=== PATIENT | male | born 1950 | race Caucasian/White ===

== ENCOUNTER 2016-12-07 13:54 | Inpatient (IN) | payer SELFPAY ==
[2016-12-07] VITALS (13 sets, daily range): BP systolic 142–227; BP diastolic 76–115; PULSE 84–105; RESP 12–21; TEMP 97.9–98.4; O2SAT 95–100
[~2016-12-07] VITALS: Ht 177.8 cm; Wt 83.6 kg
[~2016-12-07 13:54] MED LIST: CHLO10 PO; HYDR25TA35 PO; KCL10C PO; LISI-363 PO; TAB-TAB PO
[2016-12-07] MEDS ORDERED: SODIUM CHLOR 0.9% 1000 ML INJ 1,000 ML IV ONE (14:10)
[2016-12-07] MEDS ORDERED: SODIUM CHLORIDE 0.9% FLUSH 10 ML FLUSH IVF PRN (14:15)
--- NOTE | 2016-12-07 14:45 | PD ---
HPI Chief Complaint: Seizure Time Seen by Provider: 14:45 Travel History International Travel<30 days: No Contact w/Intl Traveler<30days: No Traveled to known affect area: No History of Present Illness HPI 65 year old male with history of hypertension and seizures in the past due to alcohol withdrawal and/or electrolyte abnormality presents to the ED for evaluation of seizure, witnessed by his . Patient is in a postictal state currently and overall a poor historian. The states that they went to [employer] for lunch and the patient was kind of "in and out of it" all morning. While eating lunch, the patient was in "a daze." The states she had to nudge him to get him to leave and he was delayed in responding to her questions. He did however insist on driving but she would not let him. On the way home, the patient had a seizure in the front seat of the car. The turned immediately to come to the hospital. Upon arrival, the patient is no longer seizing but appears postictal. He denies any pain.. No shortness of breath. No recent illnesses, fever, or chills. Patient does have a reported history of alcohol abuse, however the patient denies consuming alcohol for an extended amount of time. The verbalizes uncertainty in regards to his honesty about this. Patient has no other symptoms to report this time. PFSH Past Medical History Asthma: Yes ( A CHILD) Autoimmune Disease: No Heart Rhythm Problems: No Cardiovascular Problems: No High Cholesterol: Yes Chest Pain: No Congestive Heart Failure: Yes COPD: No Cerebrovascular Accident: No Diabetes: No Diminished Hearing: No Endocrine: No Gastrointestinal Disorders: Yes (hx of GI abelb-oxfutyu-rpssc tear x2) Gout: Yes Genitourinary: No Headaches: No Hypertension: Yes Immune Disorder: No Musculoskeletal: No Neurologic: Yes Reproductive: No Respiratory: Yes Migraines: No Seizures: Yes Sleep Apnea: No Thyroid Disease: No Tetanus Vaccination: > 5 Years Past Surgical History Abdominal Surgery: Yes Cardiac Surgery: No Ear Surgery: No Endocrine Surgery: No Eye Surgery: No Genitourinary Surgery: No Gynecologic Surgery: No Neurologic Surgery: No Oral Surgery: Yes Thoracic Surgery: No Other Surgery: Yes Social History Alcohol Use: Yes ("NOT EVERY DAY") Tobacco Use: Yes (1 PPD) Substance Use: No Allergies-Medications (Allergen,Severity, Reaction): Coded Allergies: Penicillin (Verified Allergy, Mild, PASS OUT, 12/07/16) Reported Meds & Prescriptions Reported Meds & Active Scripts Active Review of Systems ROS Limitations: Altered Mental Status Except as stated in HPI: all other systems reviewed are Neg Physical Exam Exam Limitations: Altered Mental Status Narrative GENERAL: Well-nourished male patient, lying in bed, in no acute distress. SKIN: Focused skin assessment warm/dry. HEAD: Atraumatic. Normocephalic. EYES: Pupils equal and round. EOMI. No scleral icterus. No injection or drainage. ENT: No nasal bleeding or discharge. Mucous membranes pink and moist. NECK: Trachea midline. No JVD. CARDIOVASCULAR: Tachycardic rate and rhythm. No murmur appreciated. RESPIRATORY: No accessory muscle use. Clear to auscultation. Breath sounds equal bilaterally. GASTROINTESTINAL: Abdomen soft, non-tender, nondistended. Hepatic and splenic margins not palpable. MUSCULOSKELETAL: No obvious deformities. No clubbing. No cyanosis. No edema. NEUROLOGICAL: Patient is awake. He does seem disoriented and confused, however when asked directly He is oriented 3. He has no obvious cranial nerve deficits. No pronator drift. Equal strength bilateral extremities. Motor grossly within normal limits. Normal speech. Data Data Last Documented VS Vital Signs Date Time Temp Pulse Resp B/P Pulse Ox O2 Delivery O2 Flow Rate FiO2 12/07/16 15:48 104 20 190/90 96 12/07/16 14:09 97.9 12/07/16 14:09 Room Air Orders Complete Blood Count With Diff (12/07/16 14:10) Alcohol (Ethanol) (12/07/16 14:10) Drug Screen, Random Urine (12/07/16 14:10) Electrocardiogram (12/07/16 ) Blood Glucose (12/07/16 14:10) Ecg Monitoring (12/07/16 14:10) Iv Access Insert/Monitor (12/07/16 14:10) Oximetry (12/07/16 14:10) Comprehensive Metabolic Panel (12/07/16 14:10) Sodium Chlor 0.9% 1000 Ml Inj (Ns 1000 M (12/07/16 14:10) Sodium Chloride 0.9% Flush (Ns Flush) (12/07/16 14:15) Urinalysis - C+S If Indicated (12/07/16 14:10) Magnesium (Mg) (12/07/16 14:10) Ammonia (12/07/16 14:10) Ct Brain W/O Iv Contrast(Rout) (12/07/16 ) Hydralazine Inj (Apresoline Inj) (12/07/16 15:00) Troponin I (12/07/16 16:31) Electrocardiogram (12/07/16 16:31) Ckmb (Isoenzyme) Profile (12/07/16 16:31) Hydralazine Inj (Apresoline Inj) (12/07/16 17:00) Clonidine (Catapres) (12/07/16 17:00) CKMB (12/07/16 14:10) CKMB% (12/07/16 14:10) Labs Laboratory Tests Test 12/07/16 12/07/16 14:10 15:40 White Blood Count 9.8 TH/MM3 Red Blood Count 4.23 MIL/MM3 Hemoglobin 14.7 GM/DL Hematocrit 44.7 % Mean Corpuscular Volume 105.6 FL Mean Corpuscular Hemoglobin 34.7 PG Mean Corpuscular Hemoglobin 32.9 % Concent Red Cell Distribution Width 15.2 % Platelet Count 204 TH/MM3 Mean Platelet Volume 10.2 FL Neutrophils (%) (Auto) 43.8 % Lymphocytes (%) (Auto) 41.8 % Monocytes (%) (Auto) 10.7 % Eosinophils (%) (Auto) 3.1 % Basophils (%) (Auto) 0.6 % Neutrophils # (Auto) 4.3 TH/MM3 Lymphocytes # (Auto) 4.1 TH/MM3 Monocytes # (Auto) 1.0 TH/MM3 Eosinophils # (Auto) 0.3 TH/MM3 Basophils # (Auto) 0.1 TH/MM3 CBC Comment DIFF FINAL Differential Comment Sodium Level 138 MEQ/L Potassium Level 3.5 MEQ/L Chloride Level 98 MEQ/L Carbon Dioxide Level 20.5 MEQ/L Anion Gap 20 MEQ/L Blood Urea Nitrogen 6 MG/DL Creatinine 1.31 MG/DL Estimat Glomerular Filtration 55 ML/MIN Rate Random Glucose 131 MG/DL Calcium Level 10.8 MG/DL Magnesium Level 1.5 MG/DL Total Bilirubin 0.9 MG/DL Aspartate Amino Transf 54 U/L (AST/SGOT) Alanine Aminotransferase 39 U/L (ALT/SGPT) Alkaline Phosphatase 93 U/L Ammonia 91 MCMOL/L Total Creatine Kinase 193 U/L Creatine Kinase MB 2.1 NG/ML Troponin I LESS THAN 0.02 NG/ML Total Protein 9.0 GM/DL Albumin 4.4 GM/DL Ethyl Alcohol Level 18 MG/DL Urine Color YELLOW Urine Turbidity CLEAR Urine pH 6.5 Urine Specific [place] 1.009 Urine Protein 30 mg/dL Urine Glucose (UA) TRACE mg/dL Urine Ketones NEG mg/dL Urine Occult Blood NEG Urine Nitrite NEG Urine Bilirubin NEG Urine Urobilinogen LESS THAN 2.0 MG/DL Urine Leukocyte Esterase NEG Urine RBC LESS THAN 1 /hpf Urine WBC 1 /hpf Urine Squamous Epithelial 1 /hpf Cells Urine Hyaline Casts 7 /lpf Microscopic Urinalysis Comment CULT NOT INDICATED Urine Opiates Screen NEG Urine Barbiturates Screen NEG Urine Amphetamines Screen NEG Urine Benzodiazepines Screen NEG Urine Cocaine Screen NEG Urine Cannabinoids Screen NEG MDM Medical Decision Making Medical Screen Exam Complete: Yes Emergency Medical Condition: Yes Medical Record Reviewed: Yes Differential Diagnosis Withdrawal seizure versus electrolyte abnormality versus intracranial etiology versus hepatic encephalopathy Narrative Course 65-year-old male presents to emergency department for evaluation following a seizure. Patient is in postictal state and overall a poor historian. His responses delayed however he is oriented 3. Neuro exam is nonfocal. Patient is tachycardic and hypertensive. EKG is without acute ST elevation or depression. CBC is without acute concern. CMP is without acute concern. Magnesium is 1.5. Ammonia is elevated at 91. Troponin is less than 0.02. Toxicology is negative. EtOH is 18 which arises questions to the patient's insistence that he has not consumed alcohol. I confronted the patient on this and he does admit to having 3 drinks last evening and 3 drinks the night before. The patient remains hypertensive despite hydralazine 2. He is given clonidine very labetalol as ordered. He does remain oriented however slow to respond and his is concerned that he is "not himself." I discussed the patient with EVIN Mcgarry. Patient will be admitted observation at this time to the [facility]. 1648 patient reports worsening indigestion. EKG is repeated with no acute abnormality identified. Patient is given GI cocktail as well as IV Protonix. 1734 Pt remains hypertensive despite multiple attempts to reduce. I discussed the patient with my attending, he will be placed on a Cardene drip and care will be upgraded to a CIC bed. I have updated EVIN Mcgarry in regards to this. Diagnosis Primary Impression: Seizure Additional Impressions: Alcohol abuse Hypertensive urgency Admitting Information Admitting Physician Requests: Admit Condition: Stable Hannah Andre Dec 07, 2016 14:45
[2016-12-07 14:59] LABS: AUTOMATED NEUTROPHIL # 4.3 TH/MM3 (1.8-7.7); BASOPHIL # 0.1 TH/MM3 (0-0.2); BASOPHIL % 0.6 % (0.0-2.0); EOSINOPHIL # 0.3 TH/MM3 (0-0.4); EOSINOPHIL % 3.1 % (0.0-4.0); HEMATOCRIT 44.7 % (39.0-51.0); HEMO FLAGS DIFF FINAL; LYMPH % 41.8 % (9.0-44.0); LYMPHOCYTE # 4.1 TH/MM3 (1.0-4.8); MEAN CELL VOLUME 105.6 FL (80.0-100.0); MEAN CORPUSCULAR HEMOGLOBIN 34.7 PG (27.0-34.0); MEAN CORPUSCULAR HGB CONC 32.9 % (32.0-36.0); MONO % 10.7 % (0.0-8.0); NEUT % 43.8 % (16.0-70.0); PLATELET COUNT 204 TH/MM3 (150-450); RED BLOOD COUNT 4.23 MIL/MM3 (4.50-5.90); RED CELL DISTRIBUTION WIDTH 15.2 % (11.6-17.2); WHITE BLOOD COUNT 9.8 TH/MM3 (4.0-11.0)
[2016-12-07] MEDS ORDERED: hydrALAZINE HCL 20 MG/ML VIAL IV PUSH ONE ×2 (15:00→17:00)
[2016-12-07 15:21] LABS: ALKALINE PHOSPHATASE 93 U/L (45-117); TOTAL BILIRUBIN ADULT 0.9 MG/DL (0.2-1.0)
[2016-12-07 15:35] LABS: ALT (GPT) 39 U/L (12-78); ANION GAP 20 MEQ/L (5-15); AST (GOT) 54 U/L (15-37); BICARBONATE 20.5 MEQ/L (21.0-32.0); BLOOD UREA NITROGEN 6 MG/DL (7-18); CHLORIDE 98 MEQ/L (98-107); GLOMERULAR FILTRATION RATE 55 ML/MIN (>89); MAGNESIUM 1.5 MG/DL (1.5-2.5); POTASSIUM 3.5 MEQ/L (3.5-5.1); SODIUM (NA) 138 MEQ/L (136-145)
--- NOTE | 2016-12-07 15:39 | RADRPT ---
EXAM DATE/TIME: 12/07/2016 15:25 [facility] COMPARISON: CT BRAIN W/O CONTRAST, January 06, 2015, 8:45. INDICATIONS : Altered mental status, possible seizure today. RADIATION DOSE: 56.35 CTDIvol (mGy) MEDICAL HISTORY : Seizures. Congestive heart failure. Hypertension. SURGICAL HISTORY : None. ENCOUNTER: Initial ACUITY: 1 day PAIN SCALE: 0/10 LOCATION: Bilateral head TECHNIQUE: Multiple contiguous axial images were obtained of the head. Using automated exposure control and adj ustment of the mA and/or kV according to patient size, radiation dose was kept as low as reasonably a chievable to obtain optimal diagnostic quality images. FINDINGS: CEREBRUM: Redemonstration of moderate periventricular white matter hypodensities consistent with ischemic white matter demyelination. The ventricles are normal for age. No evidence of midline shift, mass lesion, hemorrhage or acute infarction. No extra-axial fluid collections are seen. POSTERIOR FOSSA: The cerebellum and brainstem are intact. The 4th ventricle is midline. The cerebellopontine angle i s unremarkable. EXTRACRANIAL: The visualized portion of the orbits is intact. SKULL: The calvaria is intact. No evidence of skull fracture. CONCLUSION: 1. Redemonstration moderate periventricular ischemic white matter demyelination consistent with small vessel disease. 2. No acute intracranial abnormality. Marco Hyatt MD on December 07, 2016 at 15:34 Board Certified Radiologist. This report was verified electronically.
[2016-12-07 15:56] LABS: BLOOD, URINE NEG (NEG); COMMENT (UR) CULT NOT INDICATED; CULTURE IF INDICATED CULT NOT INDICATED; GLUCOSE,URINE TRACE mg/dL (NEG); HYALINE CAST, URINE 7 /lpf (RARE); KETONE, URINE NEG (NEG); NITRITE,URINE NEG (NEG); PH, URINE 6.5 (5.0-8.5); SQUAMOUS EPITHELIAL CELL URINE 1 /hpf (0-5); URINE COLOR YELLOW (YELLW/STRAW)
[2016-12-07 16:55] LABS: CREATINE KINASE 193 U/L (39-308)
[2016-12-07 16:55] LABS: AMPHETAMINE, URINE NEG (NEG); BARBITURATES, URINE NEG (NEG); COCAINE, URINE NEG (NEG)
[2016-12-07] MEDS ORDERED: cloNIDine HCL 0.1 MG TAB PO ONE (17:00)
[2016-12-07 17:08] LABS: CKMB 2.1 NG/ML (0.5-3.6)
[2016-12-07] MEDS ORDERED: ALUMINUM/MAGNESIUM/SIMETH 30 ML CUP PO ONE (17:15)
[2016-12-07] MEDS ORDERED: LIDOCAINE VISCOUS 2% SOLN 15 ML UDC PO ONE (17:15)
[2016-12-07] MEDS ORDERED: LABETALOL HCL 100 MG/20 ML VIAL IV PUSH ONE (17:15)
[2016-12-07] MEDS ORDERED: PANTOPRAZOLE SODIUM 40 MG VIAL IVP ONE (17:15)
[2016-12-07] MEDS ORDERED: SODIUM CHLOR 0.9% 1000 ML INJ 1,000 ML IV SCH (17:39)
[2016-12-07] MEDS ORDERED: LORazepam 2 MG/ML VIAL ONE (17:41)
[2016-12-07] MEDS ORDERED: SENNOSIDES 8.6 MG TAB PO PRN (17:45)
[2016-12-07] MEDS ORDERED: LORazepam 2 MG/ML VIAL IV PUSH PRN (17:45)
[2016-12-07] MEDS ORDERED: LACTULOSE SYRUP 20 GM/30 ML CUP PO PRN (17:45)
[2016-12-07] MEDS ORDERED: LORazepam 2 MG/ML VIAL IV PUSH ONE (17:45)
[2016-12-07] MEDS ORDERED: MAGNESIUM HYDROXIDE SUSP 30 ML CUP PO PRN (17:45)
[2016-12-07] MEDS ORDERED: BISACODYL 10 MG SUPP RECTAL PRN (17:45)
[2016-12-07] MEDS ORDERED: niCARdipine INJ 25 MG in SODIUM CHLOR 0.9% 250 ML INJ 250 ML IV ONE (17:45)
[2016-12-07] MEDS ORDERED: NALOXONE HCL 0.4 MG/ML AMP IV PRN (17:45)
[2016-12-07] MEDS ORDERED: FLUMAZENIL 0.5 MG/5 ML VIAL IV PUSH PRN (18:00)
[2016-12-07] MEDS ORDERED: LORazepam 1 MG TAB PO PRN (18:00)
[2016-12-07] MEDS ORDERED: LORazepam 2 MG TAB PO PRN (18:00)
--- NOTE | 2016-12-07 18:08 | RADRPT ---
EXAM DATE/TIME: 12/07/2016 17:59 [facility] COMPARISON: CHEST SINGLE AP, January 06, 2015, 9:27. INDICATIONS : Chest pain, possible seizure. MEDICAL HISTORY : Seizures. Congestive heart failure. Hypertension. SURGICAL HISTORY : None. ENCOUNTER: Initial ACUITY: 1 day PAIN SCORE: Non-responsive. LOCATION: Bilateral chest FINDINGS: No infiltrate, effusion or pneumothorax demonstrated. Heart size stable compared to normal limits. Th oracic aorta is mildly tortuous. Left rib fractures are again seen. CONCLUSION: No evidence of acute cardiopulmonary disease. Old, healed left rib fractures. Cisco Weller MD on December 07, 2016 at 18:06 Board Certified Radiologist. This report was verified electronically.
[2016-12-07] MEDS ORDERED: TUMS500C CHEW (18:38)
[2016-12-07] MEDS ORDERED: CLON0.2T PO (18:38)
[2016-12-07] MEDS ORDERED: LABE200T2 PO (18:38)
[2016-12-07] MEDS ORDERED: ATOR40TA16 PO (18:38)
[2016-12-07] MEDS ORDERED: ASPI81TA5 PO (18:38)
--- NOTE | 2016-12-07 18:51 | HHI.HP ---
HPI Service [facility] Primary Care Physician Karoline Simons Admission Diagnosis SEIZURE; PROLONGED POST-ICTAL STATE; ALCOHOL ABUSE; HTN URGENCY Diagnoses: Chief Complaint: SEIZURE Travel History International Travel<30 Days: No Contact w/Intl Traveler <30 Da: No Traveled to Known Affected Are: No History of Present Illness Patient is a 65 year old male with past medical history of heavy alcohol consumption and dependence. Apparently he had been sober for some time. He has had alcohol withdrawal seizures in the past every time he quits and has required hospital admissions. According to the girlfriend who is providing most of the history, they had gone to [employer] to have lunch and she noted that he started sweating and was kind of just staring at her not focusing. States that she had to prompt him to stand up and leave and he was slow to respond. She insisted on driving and on the way home he had a seizure. She immediately brought him to the hospital for evaluation. By the time he arrived in the emergency room he was longer seizing that was postictal. Significant other indicated that she was not aware that the patient was drinking, his blood alcohol level was 18. Patient finally started waking up and was confronted by the ER physician and he finally admitted to having 3 drinks last evening in 3 drinks the night before. Laboratory workup was completed, magnesium was 1.5. Ammonia was elevated at 91. Troponin was negative. Toxicology was negative. He was noted hypertensive and required hydralazine 2, Labetalol, and Clonidine. He complained of indigestion and received a GI cocktail. An EKG was completed and it was normal. His blood pressure remained elevated despite medical treatment, therefore he was placed on a Cardene drip and was upgraded to a CIC bed. While he was been evaluated by hospitalist, patient had another seizure. He received Ativan 1 mg and was loaded with Keppra. At this time, patient is still postictal, he remains hypertensive and is on a Cardene drip. He will be admitted to the intensive care unit for closer monitoring. According to the significant other, she didn't know that he had started drinking. She denies any illegal drug use. Patient is admitted for further evaluation and treatment. Review of Systems ROS Limitations: Clinical Condition Past Family Social History Past Medical History ETOH abuse Seizures 2015 due to ETOH withdrawal HTN CHF Asthma as a child Hyperlipidemia Gout Martita-Majano tears related to alcohol abuse. Past Surgical History His past surgical history is significant for abdominal surgery in the past. ALLERGIES: PENICILLIN. SOCIAL HISTORY: The patient has been a heavy alcohol user for more than thirty years. He is also a smoker and smokes about 1-1/2 packs per day for fifty years. No history of drug abuse. The patient is retired and worked as a drafter civil. He currently lives at home with his daughter and periodically has a girlfriend. His of many years was also a heavy alcohol drinker and one year ago. Reported Medications Reported Meds & Active Scripts Active Reported Tums (Calcium Carbonate (Antacid)) 500 Mg Chew 1,000 Mg CHEW Q6HR PRN Aspirin DR (Aspirin) 81 Mg Tabdr 81 Mg PO DAILY Labetalol (Labetalol HCl) 200 Mg Tab 200 Mg PO BID Clonidine (Clonidine HCl) 0.2 Mg Tab 0.2 Mg PO BID Atorvastatin (Atorvastatin Calcium) 40 Mg Tab 40 Mg PO DAILY Allergies: Coded Allergies: Penicillin (Verified Allergy, Mild, PASS OUT, 12/07/16) Active Ordered Medications Inpatient Medications Al Hydrox/Mg Hydrox/Simethicone (Mag-Al Plus Susp Liq) 30 ml ONCE ONCE PO Last administered on 12/07/16 17:32; Start 12/07/16 at 17:15; Stop 12/07/16 at 17: 16; Status DC Bisacodyl (Dulcolax Supp) 10 mg DAILY PRN RECTAL SEVERE CONSITIPATION; Start at 17:45 Clonidine (Catapres) 0.1 mg ONCE ONCE PO Last administered on 12/07/16 17:05; Start 12/07/16 at 17:00; Stop 12/07/16 at 17:01; Status DC Dextrose (D5W 1000 ml Inj) 1,000 ml @ 50 mls/hr Q20H IV ; Start 12/07/16 at 18: 00 Flumazenil (Romazicon Inj) 0.2 mg Q1M PRN IV PUSH SEE LABEL COMMENTS; Start 12/07/16 at 18:00 Hydralazine HCl (Apresoline Inj) 20 mg ONCE ONCE IV PUSH ; Start 12/07/16 at 17: 00; Stop 12/07/16 at 17:01; Status DC Labetalol HCl (Trandate Inj) 20 mg ONCE ONCE IV PUSH Last administered on 17:06; Start 12/07/16 at 17:15; Stop 12/07/16 at 17:16; Status DC Lactulose (Lactulose Liq) 30 ml DAILY PRN PO SEVERE CONSITIPATION; Start at 17:45 Levetriacetam (Keppra 1000 Mg Inj) 100 ml @ 400 mls/hr Q12HR IV ; Start at 21:00 Lidocaine HCl 15 ml 15 ml ONCE ONCE PO Last administered on 12/07/16 17:32; Start 12/07/16 at 17:15; Stop 12/07/16 at 17:16; Status DC Lorazepam (Ativan Inj) 2 mg Q1H PRN IV PUSH CIWA 15-20; Start 12/07/16 at 18:00 Lorazepam (Ativan) 2 mg Q2H PRN PO CIWA 11-14; Start 12/07/16 at 18:00 Lorazepam 1 mg 1 mg Q2H PRN IV PUSH seizures; Start 12/07/16 at 17:45 Lorazepam 2 mg 2 mg Q15M PRN IV PUSH CIWA > 20; Start 12/07/16 at 18:00 Magnesium Hydroxide (Milk Of Magnesia Liq) 30 ml Q12H PRN PO MILD - MODERATE CONSTIPATION; Start 12/07/16 at 17:45 Naloxone HCl (Narcan Inj) 0.4 mg UNSCH PRN IV SEE LABEL COMMENTS; Start at 17:45 Nicardipine HCl 25 mg/Sodium Chloride 260 ml @ 0 mls/hr TITRATE ONCE IV Last administered on 12/07/16 17:48; Start 12/07/16 at 17:45; Stop 12/07/16 at 17:46; Status DC Ondansetron HCl (Zofran Inj) 4 mg Q6H PRN IVP NAUSEA OR VOMITING; Start at 17:45 Pantoprazole Sodium (Protonix Inj) 40 mg ONCE ONCE IVP Last administered on 17:32; Start 12/07/16 at 17:15; Stop 12/07/16 at 17:16; Status DC Senna/Docusate Sodium (Luz Elena-Colace) 1 tab BID PO ; Start 12/07/16 at 21:00 Sennosides (Senokot) 17.2 mg Q12H PRN PO MODERATE - SEVERE CONSTIPATION; Start 12/07/16 at 17:45 Sodium Chloride (NS 1000 ml Inj) 1,000 ml @ 50 mls/hr Q20H IV ; Start 12/07/16 at 17:39; Stop 12/07/16 at 17:52; Status DC Sodium Chloride (NS Flush) 2 ml BID IV FLUSH ; Start 12/07/16 at 21:00 Family History Unable to obtain Social History Lives with significant other. Has grown children. + ETOH abuse, was supposed to be sober but apparently drank 3 drinks yesterday. Possibly started smoking again. No substance abuse. Physical Exam Vital Signs Vital Signs Date Time Temp Pulse Resp B/P Pulse Ox O2 Delivery O2 Flow Rate FiO2 12/07/16 18:44 103 21 166/85 99 Non-Rebreather 15 12/07/16 18:17 104 17 184/89 100 Non-Rebreather 15 12/07/16 18:11 105 21 227/115 100 Non-Rebreather 15 12/07/16 15:48 104 20 190/90 96 12/07/16 14:14 93 21 184/93 96 12/07/16 14:09 97.9 86 20 184/93 96 12/07/16 14:09 20 95 Room Air 12/07/16 14:01 97.9 96 20 212/105 95 Physical Exam GENERAL: This is a well-nourished, well-developed patient, in no apparent distress. SKIN: flushed, diaphoretic. HEAD: Atraumatic. Normocephalic. No temporal or scalp tenderness. EYES: Pupils equal round and reactive. Extraocular motions intact. No scleral icterus. No injection or drainage. ENT: Nose without bleeding, purulent drainage or septal hematoma. Throat without erythema, tonsillar hypertrophy or exudate. Uvula midline. Airway patent. NECK: Trachea midline. No JVD or lymphadenopathy. Supple, nontender, no meningeal signs. CARDIOVASCULAR: Regular rate and rhythm without murmurs, gallops, or rubs. RESPIRATORY: Clear to auscultation. Breath sounds equal bilaterally. No wheezes , rales, or rhonchi. GASTROINTESTINAL: Abdomen soft, non-tender, nondistended. No hepato-splenomegaly , or palpable masses. No guarding. MUSCULOSKELETAL: Extremities without clubbing, cyanosis, or edema. No joint tenderness, effusion, or edema noted. No calf tenderness. Negative Homans sign bilaterally. NEUROLOGICAL: postictal, at times tries to grab chacon. Unable to assess. Laboratory Laboratory Tests Test 12/07/16 12/07/16 14:10 15:40 White Blood Count 9.8 Red Blood Count 4.23 Hemoglobin 14.7 Hematocrit 44.7 Mean Corpuscular Volume 105.6 Mean Corpuscular Hemoglobin 34.7 Mean Corpuscular Hemoglobin 32.9 Concent Red Cell Distribution Width 15.2 Platelet Count 204 Mean Platelet Volume 10.2 Neutrophils (%) (Auto) 43.8 Lymphocytes (%) (Auto) 41.8 Monocytes (%) (Auto) 10.7 Eosinophils (%) (Auto) 3.1 Basophils (%) (Auto) 0.6 Neutrophils # (Auto) 4.3 Lymphocytes # (Auto) 4.1 Monocytes # (Auto) 1.0 Eosinophils # (Auto) 0.3 Basophils # (Auto) 0.1 CBC Comment DIFF FINAL Differential Comment Sodium Level 138 Potassium Level 3.5 Chloride Level 98 Carbon Dioxide Level 20.5 Anion Gap 20 Blood Urea Nitrogen 6 Creatinine 1.31 Estimat Glomerular Filtration 55 Rate Random Glucose 131 Calcium Level 10.8 Magnesium Level 1.5 Total Bilirubin 0.9 Aspartate Amino Transf 54 (AST/SGOT) Alanine Aminotransferase 39 (ALT/SGPT) Alkaline Phosphatase 93 Ammonia 91 Total Creatine Kinase 193 Creatine Kinase MB 2.1 Troponin I LESS THAN 0.02 Total Protein 9.0 Albumin 4.4 Ethyl Alcohol Level 18 Urine Color YELLOW Urine Turbidity CLEAR Urine pH 6.5 Urine Specific [place] 1.009 Urine Protein 30 Urine Glucose (UA) TRACE Urine Ketones NEG Urine Occult Blood NEG Urine Nitrite NEG Urine Bilirubin NEG Urine Urobilinogen LESS THAN 2.0 Urine Leukocyte Esterase NEG Urine RBC LESS THAN 1 Urine WBC 1 Urine Squamous Epithelial 1 Cells Urine Hyaline Casts 7 Microscopic Urinalysis Comment CULT NOT INDICATED Urine Opiates Screen NEG Urine Barbiturates Screen NEG Urine Amphetamines Screen NEG Urine Benzodiazepines Screen NEG Urine Cocaine Screen NEG Urine Cannabinoids Screen NEG Result Diagram: 12/07/16 1410 12/07/16 1410 Imaging Last Impressions Head CT 12/07/16 0000 Signed Impressions: Service Date/Time: Wednesday, December 07, 2016 15:25 - CONCLUSION: 1. Redemonstration moderate periventricular ischemic white matter demyelination consistent with small vessel disease. 2. No acute intracranial abnormality. Marco Hyatt MD Chest X-Ray 12/07/16 0000 Signed Impressions: Service Date/Time: Wednesday, December 07, 2016 17:59 - CONCLUSION: No evidence of acute cardiopulmonary disease. Old, healed left rib fractures. Cisco Weller MD Assessment and Plan Problem List: (1) Seizure (2) Hypertensive urgency (3) Alcohol abuse (4) Alcohol withdrawal seizure (5) GRETCHEN (acute kidney injury) (6) Hyperammonemia Assessment and Plan Admit to Dr. Avitia 65-year-old male patient with known history of alcohol abuse and prior alcohol withdrawal seizures. Presented to the emergency room with recurrent seizures, apparently he had had 3 drinks the night before. Alcohol level was 18. -Consult neurology for evaluation EEG has been ordered -Continue with Keppra Seizure precautions Neuro checks every 4 hours Continuous cardiac telemetry monitoring D5 normal at 50 an hour Patient will be put on folic acid, thiamine and multivitamin -CIWA protocol has been started Hypertensive urgency Continue with Cardene and titrate to keep blood pressure between 140-160 Acute kidney injury -Continue with IV fluids Follow BMP Hyperammonemia Elevated AST Repeat ammonia level in the morning -Monitor hepatic function SCDs for DVT prophylaxis Protonix for GI prophylaxis Condition guarded Patient will be monitored closely in the intensive care unit Plan of care has been discussed with the patient's significant other, her questions have been answered in detail. Plan of care discussed with attending and registered nurse. Further management of the patient will be dependent on the hospital course This patient was seen by myself and Dr. Avitia, this H&P is written on her behalf Physician Certification 2 Midnight Certification Type: Admission for Inpatient Services Order for Inpatient Services The services are ordered in accordance with Medicare regulations or non- Medicare payer requirements, as applicable. In the case of services not specified as inpatient-only, they are appropriately provided as inpatient services in accordance with the 2-midnight benchmark. Estimated LOS (days): 2 2 days is the estimated time the patient will need to remain in the hospital, assuming treatment plan goals are met and no additional complications. Post-Hospital Plan: Not yet determined Problem Qualifiers (1) Alcohol withdrawal seizure: Qualified Code: F10.239 - Alcohol withdrawal seizure, with unspecified complication Citlali Arellano Dec 07, 2016 18:51
[2016-12-07] MEDS: DEXTROSE 5% IN WATE 1000ML INJ 1,000 ML IV SCH (18:54)
[2016-12-07] MEDS ORDERED: CHLORHEXIDINE GLUCONATE 2 % 1 PACK (2 CLOTHS)(extra cloths) TOPICAL PRN (21:30)
[2016-12-07] MEDS: MULTIVITAMIN INJ 10 ML, FOLIC ACID INJ 1 MG in SODIUM CHLORID 0.9% 500 ML INJ 500 ML IV SCH (22:15)
[2016-12-07] MEDS: THIAMINE INJ 100 MG in SODIUM CHLORIDE 0.9% INJ 100 ML IV SCH (22:16)
[2016-12-07] MEDS: SODIUM CHLORIDE 0.9% FLUSH 10 ML FLUSH IV FLUSH SCH (22:17)
[2016-12-07] MEDS: DOCUSATE SODIUM 50 MG/SENNA 8.6 MG TAB PO SCH (22:17)
[2016-12-07] MEDS: levETIRAcetam 1000 MG INJ 100 ML IV SCH (22:17)
[2016-12-07] MEDS: CHLORHEXIDINE GLUCONATE 2 % 1 PACK (2 CLOTHS)(taper/protocol) TOPICAL SCH (22:18)
[2016-12-07] MEDS: niCARdipine INJ 25 MG in SODIUM CHLOR 0.9% 250 ML INJ 250 ML IV SCH (22:19)
[2016-12-08] VITALS (25 sets, daily range): BP systolic 110–172; BP diastolic 59–120; PULSE 82–97; RESP 0–28; TEMP 98.4–99.3; O2SAT 92–100
[2016-12-08] MEDS: ONDANSETRON HCL 4 MG/2 ML VIAL IVP PRN ×2 (02:40→09:34)
[2016-12-08] MEDS: niCARdipine INJ 25 MG in SODIUM CHLOR 0.9% 250 ML INJ 250 ML IV SCH (03:56)
[2016-12-08 06:31] LABS: AUTOMATED NEUTROPHIL # 8.9 TH/MM3 (1.8-7.7); BASOPHIL % 0.1 % (0.0-2.0); HEMATOCRIT 41.6 % (39.0-51.0); LYMPH % 4.8 % (9.0-44.0); LYMPHOCYTE # 0.5 TH/MM3 (1.0-4.8); MEAN CELL VOLUME 101.2 FL (80.0-100.0); MEAN CORPUSCULAR HEMOGLOBIN 34.4 PG (27.0-34.0); MONO % 2.7 % (0.0-8.0); NEUT % 92.4 % (16.0-70.0); PLATELET COUNT 160 TH/MM3 (150-450); RED BLOOD COUNT 4.11 MIL/MM3 (4.50-5.90); RED CELL DISTRIBUTION WIDTH 14.5 % (11.6-17.2); WHITE BLOOD COUNT 9.6 TH/MM3 (4.0-11.0)
[2016-12-08 06:34] LABS: HEMO FLAGS AUTO DIFF
[2016-12-08 07:00] LABS: BICARBONATE 33.7 MEQ/L (21.0-32.0); INDIRECT BILIRUBIN 0.8 MG/DL (0.0-0.8); TOTAL BILIRUBIN ADULT 1.1 MG/DL (0.2-1.0)
[2016-12-08 07:19] LABS: POTASSIUM 2.9 MEQ/L (3.5-5.1)
[2016-12-08] MEDS: levETIRAcetam 1000 MG INJ 100 ML IV SCH (08:17)
[2016-12-08] MEDS: DOCUSATE SODIUM 50 MG/SENNA 8.6 MG TAB PO SCH ×2 (08:17→19:36)
[2016-12-08] MEDS: SODIUM CHLORIDE 0.9% FLUSH 10 ML FLUSH IV FLUSH SCH ×2 (08:17→19:37)
[2016-12-08 08:31] LABS: BANDS 16 % (0-6); NEUTROPHIL # MANUAL DIFF 9.2 TH/MM3 (1.8-7.7); PLATELET ESTIMATE SMEAR NORMAL (NORMAL); PLATELET MORPHOLOGY NORMAL (NORMAL); POLYS (SEG NEUTROPHILS) 80 % (16-70); SCAN/DIFF FINAL DIFF MANUAL; WBC DIFF SAMPLE 100
[2016-12-08 08:33] LABS: STOMATOCYTES 1+ (NORMAL)
[2016-12-08] MEDS: POTASSIUM CHLOR 20 MEQ PREMIX 100 ML IV SCH ×2 (10:28→12:24)
[2016-12-08] MEDS: DEXTROSE 5% IN WATE 1000ML INJ 1,000 ML IV SCH (14:00)
[2016-12-08] MEDS: PANTOPRAZOLE SODIUM 40 MG VIAL IV PUSH SCH (14:02)
--- NOTE | 2016-12-08 14:17 | HHI.PR ---
Subjective Subjective Remarks awake, oriented x 3 calm, cooperative no seizures no tremors c/o heartburn tolerating liquids well no cp no sob BP stable, off Cardene gtt Review of Systems Constitutional Constitutional Remarks 12 point ROS completed, negative except as noted above, unreliable Vitals/Results Intake & Output 12/07/16 12/07/16 12/08/16 14:59 22:59 06:59 Intake Total 1626 ml 1101 ml Output Total 1740 ml 735 ml Balance -114 ml 366 ml Intake Oral 120 ml IV Total 1506 ml 1101 ml Output Urine Total 1740 ml 735 ml # Bowel Movements 0 0 Vital Signs Vital Signs Date Time Temp Pulse Resp B/P Pulse Ox O2 Delivery O2 Flow Rate FiO2 12/08/16 12:00 90 12/08/16 12:00 98.5 90 18 150/91 99 12/08/16 11:00 91 15 148/89 95 12/08/16 10:00 89 12/08/16 10:00 89 20 137/81 98 12/08/16 09:00 86 20 146/82 95 12/08/16 08:00 87 12/08/16 08:00 99.2 87 26 110/60 98 12/08/16 07:00 97 28 117/59 98 12/08/16 07:00 97 12/08/16 06:00 91 12/08/16 05:00 97 12/08/16 04:00 99.3 95 21 123/62 99 12/08/16 04:00 95 12/08/16 03:00 95 0 148/77 100 12/08/16 03:00 95 12/08/16 02:00 93 12/08/16 02:00 93 25 138/65 96 12/08/16 01:00 90 12/08/16 01:00 90 16 134/64 100 12/08/16 00:00 98.5 93 14 146/80 100 12/08/16 00:00 93 12/07/16 23:30 94 12 145/76 100 12/07/16 23:30 94 12/07/16 23:00 95 16 143/78 100 12/07/16 23:00 95 12/07/16 22:30 95 12/07/16 22:30 95 20 142/80 99 12/07/16 22:00 84 12/07/16 21:23 98.4 100 20 157/83 100 12/07/16 19:10 96 15 165/83 100 Non-Rebreather 15 12/07/16 18:44 103 21 166/85 99 Non-Rebreather 15 12/07/16 18:17 104 17 184/89 100 Non-Rebreather 15 12/07/16 18:11 105 21 227/115 100 Non-Rebreather 15 12/07/16 15:48 104 20 190/90 96 CBC/BMP: 12/08/16 0618 12/08/16 0618 Lab Results Laboratory Tests Test 12/07/16 12/07/16 12/07/16 12/08/16 15:40 20:00 21:10 06:18 Urine Color YELLOW Urine Turbidity CLEAR Urine pH 6.5 Urine Specific [place] 1.009 Urine Protein 30 mg/dL Urine Glucose (UA) TRACE mg/dL Urine Ketones NEG mg/dL Urine Occult Blood NEG Urine Nitrite NEG Urine Bilirubin NEG Urine Urobilinogen LESS THAN 2.0 MG/DL Urine Leukocyte Esterase NEG Urine RBC LESS THAN 1 /hpf Urine WBC 1 /hpf Urine Squamous Epithelial 1 /hpf Cells Urine Hyaline Casts 7 /lpf Microscopic Urinalysis Comment CULT NOT INDICATED Urine Opiates Screen NEG Urine Barbiturates Screen NEG Urine Amphetamines Screen NEG Urine Benzodiazepines Screen NEG Urine Cocaine Screen NEG Urine Cannabinoids Screen NEG Troponin I 0.02 NG/ML 0.07 NG/ML Nasal Screen MRSA (PCR) MRSA NOT DETECTED White Blood Count 9.6 TH/MM3 Red Blood Count 4.11 MIL/MM3 Hemoglobin 14.1 GM/DL Hematocrit 41.6 % Mean Corpuscular Volume 101.2 FL Mean Corpuscular Hemoglobin 34.4 PG Mean Corpuscular Hemoglobin 34.0 % Concent Red Cell Distribution Width 14.5 % Platelet Count 160 TH/MM3 Mean Platelet Volume 9.2 FL Neutrophils (%) (Auto) 92.4 % Lymphocytes (%) (Auto) 4.8 % Monocytes (%) (Auto) 2.7 % Eosinophils (%) (Auto) 0.0 % Basophils (%) (Auto) 0.1 % Neutrophils # (Auto) 8.9 TH/MM3 Lymphocytes # (Auto) 0.5 TH/MM3 Monocytes # (Auto) 0.3 TH/MM3 Eosinophils # (Auto) 0.0 TH/MM3 Basophils # (Auto) 0.0 TH/MM3 CBC Comment AUTO DIFF Differential Total Cells 100 Counted Neutrophils % (Manual) 80 % Band Neutrophils % 16 % Lymphocytes % 4 % Neutrophils # (Manual) 9.2 TH/MM3 Differential Comment FINAL DIFF MANUAL Platelet Estimate NORMAL Platelet Morphology Comment NORMAL Stomatocytes 1+ Sodium Level 136 MEQ/L Potassium Level 2.9 MEQ/L Chloride Level 95 MEQ/L Carbon Dioxide Level 33.7 MEQ/L Anion Gap 7 MEQ/L Blood Urea Nitrogen 7 MG/DL Creatinine 0.86 MG/DL Estimat Glomerular Filtration 90 ML/MIN Rate Random Glucose 129 MG/DL Calcium Level 8.7 MG/DL Total Bilirubin 1.1 MG/DL Direct Bilirubin 0.3 MG/DL Indirect Bilirubin 0.8 MG/DL Aspartate Amino Transf 37 U/L (AST/SGOT) Alanine Aminotransferase 29 U/L (ALT/SGPT) Alkaline Phosphatase 76 U/L Ammonia 23 MCMOL/L Total Protein 7.3 GM/DL Albumin 3.4 GM/DL Physical Exam General General Appearance: Well Developed, Well Nourished, No Acute Distress, Comfortable Eyes Eye Exam: Pupils Equal, Pupils Reactive Ears & Nose Ears & Nose Exam: Nasal Mucosa Sabin Throat Throat Exam: Oral Mucosa Sabin & Moist Neck Neck Exam: Neck Supple, Trachea Midline Pulmonary Resp Exam: Breath Sounds Equal Cardiology CV Exam: Regular, Good Perfusion Gastrointestinal/Abdomen GI Exam: Soft, Non-Tender, Bowel Sounds Present, Non-Distended Genitourinary Exam: Clear Urine Remarks CHANEL Musculoskeletal MS Exam: Joints Intact Integumentary Skin Exam: Warm, Dry Extremeties Extremities Exam: No Edema, Pedal Pulses Palpable Neurologic Neuro Exam: Alert, Awake, Oriented, Speech Clear, Moving All Extremities, No Focal Deficits Psychiatric Psych Exam: Appropriate Responses VTE Prophylaxis VTE Prophylaxis Device: SCDs PUD Prophylasis PUD Prophylaxis: Protonix Assessment/Plan Problem List: (1) Alcohol withdrawal seizure (2) GRETCHEN (acute kidney injury) (3) Hyperammonemia (4) Hypertensive urgency (5) Seizure (6) Hypokalemia (7) Alcohol abuse Assessment/Plan 65-year-old male patient with known history of alcohol abuse and prior alcohol withdrawal seizures. Presented to the emergency room with recurrent seizures, apparently he had had 3 drinks the night before. Alcohol level was 18. -Consult neurology for evaluation, pending EEG done, unofficial report. abnormal. -Brain MRI -Continue with Keppra Seizure precautions Neuro checks every 4 hours Continuous cardiac telemetry monitoring Continue D5 normal at 50 an hour -Continue folic acid, thiamine and multivitamin -[facility] protocol -cooperative, calm, monitor for withdrawal symptoms Hypertensive urgency-off cardene drip now BP stable -Continue PRN Hydralazine Acute kidney injury renal function improved -Continue with IV fluids Hyperammonemia Elevated AST -Ammonia and AST now normal Hypokalemia, K 2.9 -K replaced -repeat BM at 1630 SCDs for DVT prophylaxis Protonix for GI prophylaxis Keep in ICU one more day, monitor for withdrawal symptoms, seizures Labs in am D/W RN D/W Dr. Avitia D/W pt. This patient was seen by myself and Dr. Avitia, this note is written on her behalf Problem Qualifiers (1) Alcohol withdrawal seizure: Qualified Code: F10.239 - Alcohol withdrawal seizure, with unspecified complication Citlali Arellano [facility] Dec 08, 2016 14:17
[2016-12-08] MEDS: CALCIUM CARBONATE 500 MG CHEWABLE TAB CHEW PRN ×2 (14:44→17:42)
--- NOTE | 2016-12-08 16:37 | MG ---
cc: RUPERT MARR Lab No: Date: 12/08/2016 Age: Sex: M Race: TEST NUMBER [id number] TECHNIQUE 17 channel EEG. DESCRIPTION The background rhythm reveals symmetrical slowing in the theta range, at times delta as well, ranging from 3 Hz to 5 Hz. There is some eye movement artifact. Occasional muscle activity is identified. No lateralizing features are seen and no epileptiform discharges are identified. Photic results in a poor driving response. INTERPRETATION Abnormal study consistent with a moderate degree of encephalopathy. MD LEONARDO Melton/CRIS /3:42 PM /4:32 PM
--- NOTE | 2016-12-08 17:42 | PD.CONS ---
History of Present Illness Service Neurology Consult Requested By medical Reason for Consult sz Primary Care Physician Karoline Simons History of Present Illness 65 year old male with past medical history of heavy alcohol consumption and dependence admitted for sz activity. Apparently he had been sober for some time. He has had alcohol withdrawal seizures in the past every time he quits and has required hospital admissions. 2008, 2013,2014 at [facility] [place]. ETOH 18. Laboratory workup was completed, magnesium was 1.5. Ammonia was elevated at 91. Troponin was negative. Toxicology was negative. He was noted hypertensive and required hydralazine 2, Labetalol, and Clonidine. While he was been evaluated by hospitalist, patient had another seizure. He received Ativan 1 mg and was loaded with Keppra. At this time, patient is still postictal, he remains hypertensive and is on a Cardene drip. denies any rader, any focal symptoms. has not been taking any sz meds. denies any aura. states he will get a sz when his potassium level gets low. Review of Systems ROS Limitations: 10 point negative Past Family Social History Past Medical History ETOH abuse Seizures 2014 due to ETOH withdrawal HTN CHF Asthma as a child Hyperlipidemia Gout Martita-Majano tears related to alcohol abuse. Past Surgical History His past surgical history is significant for abdominal surgery in the past. Reported Medications Reported Meds & Active Scripts Active Reported Tums (Calcium Carbonate (Antacid)) 500 Mg Chew 1,000 Mg CHEW Q6HR PRN Aspirin DR (Aspirin) 81 Mg Tabdr 81 Mg PO DAILY Labetalol (Labetalol HCl) 200 Mg Tab 200 Mg PO BID Clonidine (Clonidine HCl) 0.2 Mg Tab 0.2 Mg PO BID Atorvastatin (Atorvastatin Calcium) 40 Mg Tab 40 Mg PO DAILY Allergies: Coded Allergies: Penicillin (Verified Allergy, Mild, PASS OUT, 12/07/16) Family History Unable to obtain Social History Lives with significant other. Has grown children. + ETOH abuse, was supposed to be sober but apparently drank 3 drinks yesterday. Possibly started smoking again. No substance abuse. Review of Systems All other ROS: ROS reviewed as documented in chart Past Family Social History Allergies: Coded Allergies: Penicillin (Verified Allergy, Mild, PASS OUT, 12/07/16) Active Ordered Medications Current Medications Medications (Trade) Dose Ordered Sig/Ruthann Route Start Time Stop Time Status Last Admin (NS Flush) 2 ml UNSCH PRN IV FLUSH 6/5/17 17:45 (NS Flush) 2 ml BID IV FLUSH 12/07/16 21:00 12/08/16 08:17 (Zofran Inj) 4 mg Q6H PRN IVP 12/07/16 17:45 12/08/16 09:34 (Narcan Inj) 0.4 mg UNSCH PRN IV 12/07/16 17:45 (Luz Elena-Colace) 1 tab BID PO 12/07/16 21:00 12/08/16 08:17 (Milk Of Magnesia Liq) 30 ml Q12H PRN PO 12/07/16 17:45 (Senokot) 17.2 mg Q12H PRN PO 12/07/16 17:45 (Dulcolax Supp) 10 mg DAILY PRN RECTAL 12/07/16 17:45 (Lactulose Liq) 30 ml DAILY PRN PO 12/07/16 17:45 Lorazepam 1 mg 1 mg Q2H PRN IV PUSH 12/07/16 17:45 (Keppra 1000 Mg Inj) 100 ml @ 400 mls/hr Q12HR IV 12/07/16 21:00 12/08/16 08:17 (Romazicon Inj) 0.2 mg Q1M PRN IV PUSH 12/07/16 18:00 (Ativan) 1 mg Q4H PRN PO 12/07/16 18:00 (Ativan Inj) 1 mg Q4H PRN IV PUSH 12/07/16 18:00 (Ativan) 2 mg Q2H PRN PO 12/07/16 18:00 (Ativan Inj) 2 mg Q2H PRN IV PUSH 12/07/16 18:00 (Ativan Inj) 2 mg Q1H PRN IV PUSH 12/07/16 18:00 Lorazepam 2 mg 2 mg Q15M PRN IV PUSH 12/07/16 18:00 Dextrose 1,000 ml @ 50 mls/hr Q20H IV 12/07/16 18:00 12/08/16 14:00 Multivitamins 10 ml/Folic Acid 1 mg/Sodium Chloride 510.2 ml @ 125 mls/hr Q24H IV 12/07/16 20:00 12/12/16 19:59 12/07/16 22:15 (Thiamine Inj/NS Inj) 101 ml @ 100 mls/hr Q24H IV 12/07/16 20:00 12/10/16 19:59 12/07/16 22:16 (Vitamin B1) 100 mg DAILY PO 12/10/16 09:00 (Protonix Inj) 40 mg Q24H IV PUSH 12/08/16 18:00 12/08/16 14:02 (Apresoline Inj) 20 mg Q4H PRN IV PUSH 12/07/16 19:30 Miscellaneous Information Patient in critical care unit? Ass... [id number] .XX 12/07/16 21:30 (Chlorhexidine 2% Cloth) 3 pack DAILY@04 TOPICAL 12/08/16 04:00 12/12/16 04:01 12/07/16 22:18 (Chlorhexidine 2% Cloth) 3 pack UNSCH PRN TOPICAL 12/07/16 21:30 12/12/16 21:26 (Tums Chew) 500 mg Q2H PRN CHEW 12/08/16 15:00 12/08/16 14:44 Exam I&O / VS 12/07/16 12/07/16 12/08/16 15:00 23:00 07:00 Intake Total 1626 ml 1101 ml Output Total 1740 ml 735 ml Balance -114 ml 366 ml Intake Oral 120 ml IV Total 1506 ml 1101 ml Output Urine Total 1740 ml 735 ml # Bowel Movements 0 0 Vital Signs Date Time Temp Pulse Resp B/P Pulse Ox O2 Delivery O2 Flow Rate FiO2 12/08/16 14:00 82 12/08/16 12:00 90 12/08/16 12:00 98.5 90 18 150/91 99 12/08/16 11:00 91 15 148/89 95 12/08/16 10:00 89 12/08/16 10:00 89 20 137/81 98 12/08/16 09:00 86 20 146/82 95 12/08/16 08:00 87 12/08/16 08:00 99.2 87 26 110/60 98 12/08/16 07:00 97 28 117/59 98 12/08/16 07:00 97 12/08/16 06:00 91 12/08/16 05:00 97 12/08/16 04:00 99.3 95 21 123/62 99 12/08/16 04:00 95 12/08/16 03:00 95 0 148/77 100 12/08/16 03:00 95 12/08/16 02:00 93 12/08/16 02:00 93 25 138/65 96 12/08/16 01:00 90 12/08/16 01:00 90 16 134/64 100 12/08/16 00:00 98.5 93 14 146/80 100 12/08/16 00:00 93 12/07/16 23:30 94 12 145/76 100 12/07/16 23:30 94 12/07/16 23:00 95 16 143/78 100 12/07/16 23:00 95 12/07/16 22:30 95 12/07/16 22:30 95 20 142/80 99 12/07/16 22:00 84 12/07/16 21:23 98.4 100 20 157/83 100 12/07/16 19:10 96 15 165/83 100 Non-Rebreather 15 12/07/16 18:44 103 21 166/85 99 Non-Rebreather 15 12/07/16 18:17 104 17 184/89 100 Non-Rebreather 15 12/07/16 18:11 105 21 227/115 100 Non-Rebreather 15 General: Alert and Oriented, No acute distress Eye: EOMI Respiratory: Non-labored respirations Musculoskeletal: ROM Neurologic: Alert, Oriented, Normal sensory, Normal motor, No focal defects, CN II-XII intact, Gag reflex normal, Normal DTR's Psychiatric: Cooperative, Appropriate mood & affect, Normal judgement, Non- suicidal Review/Management Diagnosis/Plan: (1) Alcohol withdrawal seizure Plan: possible etoh withdrawal/low mag eeg x 2- no sz activity recs replace mag limit etoh intake continue keppra 500mg bid for now; look at dc'ing outpatient setting no driving/swimming/climbing heights x 6 months of being spell/sz free d/c planning Problem Qualifiers (1) Alcohol withdrawal seizure: Qualified Code: F10.239 - Alcohol withdrawal seizure, with unspecified complication Main Raman MD Dec 08, 2016 17:42
--- NOTE | 2016-12-08 18:00 | RADRPT ---
EXAM DATE/TIME: 12/08/2016 17:00 [place] COMPARISON: No previous studies available for comparison. INDICATIONS : Seizures. MEDICAL HISTORY : Seizures. Congestive heart failure. Hypertension. ETOH abuse. SURGICAL HISTORY : None. ENCOUNTER: Subsequent ACUITY: 2 day PAIN SCORE: 0/10 LOCATION: head. TECHNIQUE: Multiplanar, multisequence MRI of the brain was performed without contrast. FINDINGS: CEREBRUM: The ventricles are normal for age. No evidence of midline shift, mass lesion, hemorrhage or acute in farction. No extraaxial fluid collections are seen. The pituitary gland and suprasellar cistern are normal in configuration. WHITE MATTER: Fairly extensive high flair signal involving the periventricular white matter of both cerebral hemisp heres. Similar signal is seen within the central portion of the fallon. POSTERIOR FOSSA: The cerebellum and brainstem are intact. The 4th ventricle is midline. The cerebellopontine angle is unremarkable. The cerebellar tonsils are normal in position. DIFFUSION IMAGING: No focal areas of restricted diffusion are seen. No evidence of acute infarction. EXTRACRANIAL: The visualized portions of the orbits and paranasal sinuses are unremarkable. CONCLUSION: 1. No acute intracranial abnormality. 2. Chronic small vessel ischemic change. Reji Estrella Jr., MD on December 08, 2016 at 17:54 Board Certified Radiologist. This report was verified electronically.
[2016-12-08] MEDS ORDERED: ASPIRIN EC 81 MG TABEC PO ONE (18:30)
--- NOTE | 2016-12-08 19:00 | MB ---
cc: OVIDIO NASH M.D. DATE OF CONSULTATION: 12/08/2016 REASON FOR CONSULTATION: HISTORY OF PRESENT ILLNESS: Abby is a very pleasant 65 year-old gentleman with a history of a known seizure disorder. He denies being noncompliant with his seizure medicines, however, apparently he had a seizure with a prolonged postictal state. Seizures in the past have been associated with alcohol withdrawal and he also has a history of alcohol abuse. The patient currently denies chest pain, shortness of breath, fever, chills, cough, GI/ bleeding, PND, orthopnea. PAST MEDICAL HISTORY: As per the history of present illness. Past history includes: 1. Asthma. 2. Hyperlipidemia. 3. CHF. 4. GI bleed x2 due to Martita-Majano tear. 5. Gout. 6. Hypertension. 7. Seizure disorder. 8. History of abdominal surgery. 9. History of oral surgery. SOCIAL HISTORY: He smokes a pack of cigarettes a day. He admits to alcohol use, "not every day." ALLERGIES PENICILLIN. MEDICATIONS: In the hospital: 1. Thiamine 100 daily. 2. Pantoprazole 40 q24 hours IV. 3. Calcium carbonate 500 q2 hours p.r.n. 4. Levetiracetam IV. 5. Thiamine IV. 6. Hydralazine p.r.n. PHYSICAL EXAMINATION VITAL SIGNS: Blood pressure 150/90, pulse 91, temperature 99.2, respiratory rate 18. General: He is alert and oriented x3 in no acute distress. Neck: Supple. No JVD, no bruit. Cardiovascular: S1-S2. No murmurs, rubs, or gallops. Lungs: Clear to auscultation bilaterally. Abdomen: Soft, non-tender, non-distended. Positive bowel sounds. Extremities: No lower extremity edema. LABORATORY DATA: White count 9.8, hemoglobin 14.7, hematocrit 44.7, MCV 105.6, platelet count 204. Sodium 136, potassium 2.9, chloride 95, bicarb 33.7, BUN 7, creatinine 0.86. Ammonia is 91. Troponin is less than 0.02, 0.02, 0.07. Toxicology screen is positive for ethyl alcohol level of 18. EKG: Normal sinus rhythm at 95 beats per minute, first-degree AV block, anteroseptal Q-waves. Repeat EKG. Anteroseptal Q-waves, 1-[address]-segment depression in leads V4, V5, V6, lead 2 and aVF. IMAGING STUDIES: Head CT: Re-demonstration moderate periventricular ischemic white matter demyelination, consistent with small vessel disease. No acute intracranial abnormality. Chest x-ray: No evidence of acute cardiopulmonary disease, old healed left rib fracture. DIAGNOSIS 1. Non STEMI 2. Seizure disorder 3. Alcohol abuse 4. Possible alcohol withdrawal. 5. Macrocytosis 6. Abnormal EKG. 7. Tobacco abuse. 8. Alcohol abuse. DISCUSSION At this point and time, I do not think his troponin and EKG changes are due to a primary obstructive ischemic etiology. Maria Teresa stevenson is completely asymptomatic. I suspect this is related to a central system event from his seizure disorder and postictal state. He does have multiple risk factors, however, so therefore will continue to follow him up. Strongly recommend smoking cessation, alcohol abstinence. If it is okay from a neurologic standpoint would recommend aspirin 81 mg a day. MD SHIREEN Acosta/DARON /4:05 PM /6:05 PM
[2016-12-08] MEDS: THIAMINE INJ 100 MG in SODIUM CHLORIDE 0.9% INJ 100 ML IV SCH (19:36)
[2016-12-08] MEDS: levETIRAcetam 500 MG TAB PO SCH (19:36)
[2016-12-08] MEDS: MULTIVITAMIN INJ 10 ML, FOLIC ACID INJ 1 MG in SODIUM CHLORID 0.9% 500 ML INJ 500 ML IV SCH (19:36)
[2016-12-08] MEDS: CHLORHEXIDINE GLUCONATE 2 % 1 PACK (2 CLOTHS)(taper/protocol) TOPICAL SCH (19:37)
[2016-12-08 20:05] LABS: BICARBONATE 34.2 MEQ/L (21.0-32.0); POTASSIUM 3.2 MEQ/L (3.5-5.1)
[2016-12-08] MEDS ORDERED: POTASSIUM CHLOR 20 MEQ PREMIX 100 ML IV ONE (22:30)
[2016-12-09] VITALS (47 sets, daily range): BP systolic 118–238; BP diastolic 62–129; PULSE 71–151; RESP 14–39; TEMP 97.6–99.2; O2SAT 87–100
[2016-12-09] MEDS: hydrALAZINE HCL 20 MG/ML VIAL IV PUSH PRN ×4 (00:12→11:49)
[2016-12-09 00:37] LABS: BICARBONATE 31.1 MEQ/L (21.0-32.0); MAGNESIUM 1.6 MG/DL (1.5-2.5); POTASSIUM 3.3 MEQ/L (3.5-5.1)
[2016-12-09] MEDS: SODIUM CHLORIDE 0.9% FLUSH 10 ML FLUSH IV FLUSH PRN (02:01)
[2016-12-09] MEDS: LORazepam 2 MG/ML VIAL IV PUSH PRN ×11 (02:01→19:00)
[2016-12-09 04:22] LABS: AUTOMATED NEUTROPHIL # 13.1 TH/MM3 (1.8-7.7); BASOPHIL % 0.3 % (0.0-2.0); HEMATOCRIT 37.8 % (39.0-51.0); LYMPHOCYTE # 0.9 TH/MM3 (1.0-4.8); MEAN CELL VOLUME 100.3 FL (80.0-100.0); MEAN CORPUSCULAR HEMOGLOBIN 35.2 PG (27.0-34.0); MEAN CORPUSCULAR HGB CONC 35.1 % (32.0-36.0); MONO % 4.6 % (0.0-8.0); NEUT % 89.1 % (16.0-70.0); PLATELET COUNT 159 TH/MM3 (150-450); RED BLOOD COUNT 3.77 MIL/MM3 (4.50-5.90); RED CELL DISTRIBUTION WIDTH 14.6 % (11.6-17.2); WHITE BLOOD COUNT 14.7 TH/MM3 (4.0-11.0)
[2016-12-09 04:24] LABS: HEMO FLAGS AUTO DIFF
[2016-12-09 05:34] LABS: SCAN/DIFF AUTO DIFF CONFIRMED
--- NOTE | 2016-12-09 07:06 | EKG ---
Date Performed: 12/07/2016 Time Performed: 16:49:58 PTAGE: 65 years EKG: SINUS TACHYCARDIA WITH FIRST DEGREE AV BLOCK SEPTAL MYOCARDIAL INFARCTION ABNORMAL ECG Comp ared to prior tracing no significant change PREVIOUS TRACING : 12/07/16 @ 14:05 DOCTOR: John Koch Interpretating Date/Time 12/09/2016 07:05:18
--- NOTE | 2016-12-09 07:06 | EKG ---
Date Performed: 12/07/2016 Time Performed: 14:05:19 PTAGE: 65 years EKG: Sinus rhythm WITH FIRST DEGREE AV BLOCK POSSIBLE LEFT ATRIAL ENLARGEMENT SEPTAL MYOCARDIAL INFARCTION ABNORMAL EC G Compared to the PREVIOUS TRACING no significant change. Septal infarction changes are slightly less prom inent as are anterolateral ischemic changes PREVIOUS TRACIN01/06/15 DOCTOR: John Koch Interpretating Date/Time 12/09/2016 07:04:46
[2016-12-09] MEDS: SODIUM CHLORIDE 0.9% FLUSH 10 ML FLUSH IV FLUSH SCH ×2 (07:19→20:25)
[2016-12-09] MEDS: levETIRAcetam 500 MG TAB PO SCH ×2 (07:19→21:00)
[2016-12-09] MEDS: DOCUSATE SODIUM 50 MG/SENNA 8.6 MG TAB PO SCH ×2 (07:19→21:00)
[2016-12-09] MEDS: ASPIRIN EC 81 MG TABEC PO SCH (07:19)
[2016-12-09 09:24] LABS: BICARBONATE 34.7 MEQ/L (21.0-32.0); POTASSIUM 3.1 MEQ/L (3.5-5.1)
--- NOTE | 2016-12-09 09:53 | MG ---
cc: RUPERT MARR M.D. Lab No: [id number] Date: 12/08/2016 Age: 65 Sex: M Race: __ TECHNIQUE This is a 17 channel EEG. DESCRIPTION The background rhythm reveals initially a symmetrical alpha rhythm with a frequency of 8 Hz, amplitude of 20-30 microvolts. There is some focal slowing over the right hemisphere occasionally with sharp activity over the right parietal and temporal areas with phase reversal. Photic stimulation results in a fairly well-developed driving response. The patient falls asleep and normal sleep activity is identified. INTERPRETATION This is an abnormal EEG. There is focal slowing of the right hemisphere with sharp activity suggesting possible structural lesion over the right hemisphere and possible seizure focus over the right hemisphere. NOTE This is a re-dictation of this patient's EEG. I dictated it yesterday. Please disregard yesterday's dictation. MD LEONARDO Melton/RAEANN /9:20 AM /9:41 AM
[2016-12-09] MEDS ORDERED: POTASSIUM CHLORIDE 10 MEQ CONTROLLED RELEASE TAB PO ONE (10:00)
--- NOTE | 2016-12-09 10:09 | HHI.PR ---
Subjective Interval History patient now in alcohol withdrawal confusion pulled out i/v requiring restraints high BP, tachycardic no fever no more seizures no family at bedside Vitals/Results Intake & Output 12/08/16 12/08/16 12/09/16 15:00 23:00 07:00 Intake Total 590 ml 879 ml 727 ml Output Total 500 ml 450 ml 750 ml Balance 90 ml 429 ml -23 ml Intake Oral 300 ml 100 ml IV Total 590 ml 579 ml 627 ml Output Urine Total 500 ml 450 ml 750 ml # Bowel Movements 0 0 0 Vital Signs Vital Signs Date Time Temp Pulse Resp B/P Pulse Ox O2 Delivery O2 Flow Rate FiO2 12/09/16 06:00 104 12/09/16 04:00 97 12/09/16 04:00 99.2 97 32 201/96 98 12/09/16 02:00 95 12/09/16 00:00 98.5 87 27 193/91 99 12/09/16 00:00 87 12/08/16 22:00 89 12/08/16 20:06 95 Nasal Cannula 2.00 12/08/16 20:00 99.0 87 28 169/86 92 12/08/16 20:00 87 12/08/16 18:00 88 25 164/120 96 12/08/16 18:00 88 12/08/16 17:36 85 25 164/88 96 12/08/16 17:00 86 12 170/91 97 12/08/16 16:52 86 172/90 98 12/08/16 16:01 84 19 159/91 96 12/08/16 16:00 98.4 85 16 97 12/08/16 16:00 85 12/08/16 15:00 84 20 155/83 96 12/08/16 14:00 82 19 147/84 96 12/08/16 14:00 82 12/08/16 13:00 85 17 155/91 97 12/08/16 12:00 90 12/08/16 12:00 98.5 90 18 150/91 99 12/08/16 11:00 91 15 148/89 95 CBC/BMP: 12/09/16 0408 12/09/16 0847 Lab Results Laboratory Tests Test 12/08/16 12/09/16 12/09/16 12/09/16 18:55 00:12 04:08 08:47 Sodium Level 134 MEQ/L 134 MEQ/L 130 MEQ/L Potassium Level 3.2 MEQ/L 3.3 MEQ/L 3.1 MEQ/L Chloride Level 94 MEQ/L 96 MEQ/L 89 MEQ/L Carbon Dioxide Level 34.2 MEQ/L 31.1 MEQ/L 34.7 MEQ/L Anion Gap 6 MEQ/L 7 MEQ/L 6 MEQ/L Blood Urea Nitrogen 13 MG/DL 12 MG/DL 11 MG/DL Creatinine 0.99 MG/DL 0.80 MG/DL 0.86 MG/DL Estimat Glomerular Filtration 76 ML/MIN 98 ML/MIN 90 ML/MIN Rate Random Glucose 129 MG/DL 125 MG/DL 117 MG/DL Calcium Level 8.9 MG/DL 8.4 MG/DL 9.2 MG/DL Troponin I 0.05 NG/ML 0.04 NG/ML 0.03 NG/ML Magnesium Level 1.6 MG/DL White Blood Count 14.7 TH/MM3 Red Blood Count 3.77 MIL/MM3 Hemoglobin 13.3 GM/DL Hematocrit 37.8 % Mean Corpuscular Volume 100.3 FL Mean Corpuscular Hemoglobin 35.2 PG Mean Corpuscular Hemoglobin 35.1 % Concent Red Cell Distribution Width 14.6 % Platelet Count 159 TH/MM3 Mean Platelet Volume 9.5 FL Neutrophils (%) (Auto) 89.1 % Lymphocytes (%) (Auto) 6.0 % Monocytes (%) (Auto) 4.6 % Eosinophils (%) (Auto) 0.0 % Basophils (%) (Auto) 0.3 % Neutrophils # (Auto) 13.1 TH/MM3 Lymphocytes # (Auto) 0.9 TH/MM3 Monocytes # (Auto) 0.7 TH/MM3 Eosinophils # (Auto) 0.0 TH/MM3 Basophils # (Auto) 0.0 TH/MM3 CBC Comment AUTO DIFF Differential Comment AUTO DIFF CONFIRMED Physical Exam General General Appearance: Well Developed, Well Nourished, No Acute Distress, Comfortable Eyes Eye Exam: Pupils Equal, Pupils Reactive Ears & Nose Ears & Nose Exam: Nasal Mucosa [place]aker Throat Throat Exam: Oral Mucosa [place] & Moist Neck Neck Exam: Neck Supple, Trachea Midline Pulmonary Resp Exam: Breath Sounds Equal Cardiology CV Exam: Regular, Good Perfusion, Tachycardia Gastrointestinal/Abdomen GI Exam: Soft, Non-Tender, Bowel Sounds Present, Non-Distended Genitourinary Exam: Clear Urine Musculoskeletal MS Exam: Joints Intact Integumentary Skin Exam: Warm, Dry Extremeties Extremities Exam: No Edema, Pedal Pulses Palpable Neurologic Neuro Exam: Moving All Extremities, No Focal Deficits Psychiatric Psych Exam: Appropriate Responses VTE Prophylaxis VTE Prophylaxis Device: SCDs PUD Prophylasis PUD Prophylaxis: Protonix Assessment/Plan Problem List: (1) Alcohol withdrawal seizure (2) GRETCHEN (acute kidney injury) (3) Hyperammonemia (4) Hypertensive urgency (5) Seizure (6) Hypokalemia (7) Alcohol abuse Assessment/Plan 65-year-old male patient with known history of alcohol abuse and prior alcohol withdrawal seizures. Presented to the emergency room with recurrent seizures, apparently he had had 3 drinks the night before. Alcohol level was 18. Appreciate Neurology input EEG done awaiting reports -Brain MRI neg -Continue with Keppra Seizure precautions Neuro checks every 4 hours Continuous cardiac telemetry monitoring -Continue folic acid, thiamine and multivitamin -CIWA protocol -now undergoing withdrawal,slurred speech, non coherent -NPO except meds -leucocytosis-monitor Hypertensive urgency-off cardene drip now BP high today resume home labetalol and Clonidine -Continue PRN Hydralazine Acute kidney injury, hyponatremia, hypokalemia renal function improved -Continue with IV fluids, change to D5NS, replace potassium monitor labs in am Hyperammonemia Elevated AST -Ammonia and AST now normal SCDs for DVT prophylaxis Protonix for GI prophylaxis Keep in ICU one more day Labs in am D/W RN D/W pt. Problem Qualifiers (1) Alcohol withdrawal seizure: Qualified Code: F10.239 - Alcohol withdrawal seizure, with unspecified complication Elsy Avitia MD Dec 09, 2016 10:08
[2016-12-09] MEDS: DEXT 5%-NACL 0.9% 1000 ML INJ 1,000 ML IV SCH (10:40)
[2016-12-09] MEDS: ATORVASTATIN 40 MG TAB PO SCH (10:40)
[2016-12-09] MEDS: cloNIDine HCL 0.2 MG TAB PO SCH ×2 (10:40→21:00)
--- NOTE | 2016-12-09 15:01 | PD.CARD.PN ---
Subjective Subjective Remarks asleep in nad Objective Vital Signs / I&O Vital Signs Date Time Temp Pulse Resp B/P Pulse Ox O2 Delivery O2 Flow Rate FiO2 12/09/16 14:00 101 12/09/16 12:00 107 12/09/16 12:00 98.5 107 26 181/90 96 12/09/16 11:50 103 18 191/97 93 12/09/16 11:30 103 24 191/88 94 12/09/16 11:00 123 24 176/101 94 12/09/16 10:58 120 29 185/100 97 12/09/16 10:00 112 21 196/96 95 12/09/16 10:00 112 12/09/16 09:55 120 31 184/86 89 12/09/16 09:42 115 24 203/106 12/09/16 09:30 112 23 207/109 98 12/09/16 09:00 111 27 184/97 94 12/09/16 08:41 116 36 195/98 12/09/16 08:30 112 36 194/129 12/09/16 08:00 98.8 110 27 183/91 12/09/16 08:00 110 12/09/16 07:55 111 39 189/108 88 12/09/16 07:46 106 39 182/101 87 12/09/16 07:30 102 28 195/107 94 12/09/16 07:12 104 38 184/106 100 12/09/16 07:07 105 35 182/102 93 12/09/16 07:00 98 Nasal Cannula 2.00 12/09/16 07:00 108 35 98 12/09/16 06:00 104 12/09/16 04:00 97 12/09/16 04:00 99.2 97 32 201/96 98 12/09/16 02:00 95 12/09/16 00:00 98.5 87 27 193/91 99 12/09/16 00:00 87 12/08/16 22:00 89 12/08/16 20:06 95 Nasal Cannula 2.00 12/08/16 20:00 99.0 87 28 169/86 92 12/08/16 20:00 87 12/08/16 18:00 88 25 164/120 96 12/08/16 18:00 88 12/08/16 17:36 85 25 164/88 96 12/08/16 17:00 86 12 170/91 97 12/08/16 16:52 86 172/90 98 12/08/16 16:01 84 19 159/91 96 12/08/16 16:00 98.4 85 16 97 12/08/16 16:00 85 12/08/16 15:00 84 20 155/83 96 I/O 12/08/16 12/08/16 12/08/16 12/09/16 12/09/16 12/09/16 07:00 15:00 23:00 07:00 15:00 23:00 Intake Total 1101 ml 590 ml 879 ml 727 ml Output Total 735 ml 500 ml 450 ml 750 ml Balance 366 ml 90 ml 429 ml -23 ml Intake Oral 300 ml 100 ml IV Total 1101 ml 590 ml 579 ml 627 ml Output Urine Total 735 ml 500 ml 450 ml 750 ml # Bowel Movements 0 0 0 0 Physical Exam GENERAL: SKIN: Warm and dry. HEAD: Normocephalic. EYES: No scleral icterus. No injection or drainage. NECK: Supple, trachea midline. No JVD or lymphadenopathy. CARDIOVASCULAR: Regular rate and rhythm without murmurs, gallops, or rubs. RESPIRATORY: Breath sounds equal bilaterally. No accessory muscle use. GASTROINTESTINAL: Abdomen soft, non-tender, nondistended. MUSCULOSKELETAL: No cyanosis, or edema. BACK: Nontender without obvious deformity. No CVA tenderness. Laboratory Laboratory Tests Test 12/08/16 12/09/16 12/09/16 12/09/16 18:55 00:12 04:08 08:47 Sodium Level 134 MEQ/L 134 MEQ/L 130 MEQ/L Potassium Level 3.2 MEQ/L 3.3 MEQ/L 3.1 MEQ/L Chloride Level 94 MEQ/L 96 MEQ/L 89 MEQ/L Carbon Dioxide Level 34.2 MEQ/L 31.1 MEQ/L 34.7 MEQ/L Anion Gap 6 MEQ/L 7 MEQ/L 6 MEQ/L Blood Urea Nitrogen 13 MG/DL 12 MG/DL 11 MG/DL Creatinine 0.99 MG/DL 0.80 MG/DL 0.86 MG/DL Estimat Glomerular Filtration 76 ML/MIN 98 ML/MIN 90 ML/MIN Rate Random Glucose 129 MG/DL 125 MG/DL 117 MG/DL Calcium Level 8.9 MG/DL 8.4 MG/DL 9.2 MG/DL Troponin I 0.05 NG/ML 0.04 NG/ML 0.03 NG/ML Magnesium Level 1.6 MG/DL White Blood Count 14.7 TH/MM3 Red Blood Count 3.77 MIL/MM3 Hemoglobin 13.3 GM/DL Hematocrit 37.8 % Mean Corpuscular Volume 100.3 FL Mean Corpuscular Hemoglobin 35.2 PG Mean Corpuscular Hemoglobin 35.1 % Concent Red Cell Distribution Width 14.6 % Platelet Count 159 TH/MM3 Mean Platelet Volume 9.5 FL Neutrophils (%) (Auto) 89.1 % Lymphocytes (%) (Auto) 6.0 % Monocytes (%) (Auto) 4.6 % Eosinophils (%) (Auto) 0.0 % Basophils (%) (Auto) 0.3 % Neutrophils # (Auto) 13.1 TH/MM3 Lymphocytes # (Auto) 0.9 TH/MM3 Monocytes # (Auto) 0.7 TH/MM3 Eosinophils # (Auto) 0.0 TH/MM3 Basophils # (Auto) 0.0 TH/MM3 CBC Comment AUTO DIFF Differential Comment AUTO DIFF CONFIRMED Test 12/09/16 12:25 Troponin I 0.04 NG/ML Assessment and Plan Problem List: (1) Seizure (2) Alcohol withdrawal seizure (3) Hypertensive urgency (4) GRETCHEN (acute kidney injury) (5) Alcohol abuse Assessment and Plan 1.) Troponon elevation - suspect secondary to siezure, rec dc tobacco, bp control, start aspirin 81 mg qd if/when ok with neuro Problem Qualifiers (1) Alcohol withdrawal seizure: Qualified Code: F10.239 - Alcohol withdrawal seizure, with unspecified complication Seferino Raphael MD Dec 09, 2016 15:01
--- NOTE | 2016-12-09 15:07 | ECHRPT ---
Indication: Hypertensive heart disease with heart failure CONCLUSIONS Normal left ventricular size. Mild LVH. The left ventricular systolic function is normal with an estimated ejection fraction of 60 %. No wall motion abnormalities. BP: 150 / 91 HR: 90 Rhythm: Sinus MEASUREMENTS (Male / Female) Normal Values Technical Quality:Poor 2D ECHO LV Diastolic Diameter PLAX 4.9 cm 4.2 - 5.9 / 3.9 - 5.3 cm LV Systolic Diameter PLAX 3.0 cm IVS Diastolic Thickness 1.2 cm 0.6 - 1.0 / 0.6 - 0.9 cm LVPW Diastolic Thickness 1.2 cm 0.6 - 1.0 / 0.6 - 0.9 cm LV Relative Wall Thickness 0.5 LVOT Diameter 2.0 cm Aortic Root Diameter 2.2 cm M-MODE AV Cusp Separation MM 1.6 cm DOPPLER AV Peak Velocity 222.0 cm/s AV Peak Gradient 19.7 mmHg AV Mean Gradient 11.0 mmHg AV Velocity Time Integral 31.1 cm LVOT Peak Velocity 164.0 cm/s LVOT Peak Gradient 10.8 mmHg LVOT Velocity Time Integral 26.8 cm LVOT Cardiac Index 3709.4 cm/minm AV Area Cont Eq vti 2.7 cm AV Area Cont Eq pk 2.3 cm Mitral E Point Velocity 68.5 cm/s Mitral A Point Velocity 113.0 cm/s Mitral E to A Ratio 0.6 LV E' Lateral Velocity 7.5 cm/s Mitral E to LV E' Lateral Ratio 9.2 LV E' Septal Velocity 8.4 cm/s Mitral E to LV E' Septal Ratio 8.2 FINDINGS Left Ventricle Normal left ventricular size. Mild LVH. The left ventricular systolic function is normal with an estimated ejection fraction of 60 %. No WMA Right Ventricle The right ventricular size is normal Left Atrium The left atrial size is normal. Right Atrium The right atrial size is normal. Atrial Septum The interatrial septum not well visualized. Aorta The aortic root and proximal ascending aorta are not well visualized. Mitral Valve Structurally normal mitral valve. No mitral valve stenosis or regurgitation. Aortic Valve The aortic valve is not well visualized. Tricuspid Valve Structurally normal tricuspid valve. No tricuspid valve stenosis or regurgitation. Vessels The inferior vena cava was not well visualized. Pericardium There is no significant pericardial effusion present. Harsh Willson MD, FACC Edited by: [employer] [facility] [employer]man (Electronically Signed) Final Date:09 December 2016 15:07 Amended: 10 December 2016 13:36 MTDD
--- NOTE | 2016-12-09 17:11 | PD.CONS ---
[facility] Service Critical Care Medicine Consult Requested By [facility] hospitalists Reason for Consult Alcohol withdrawal with delirium tremens Primary Care Physician Karoline Simons History of Present Illness History of Present Illness Patient is a 65 year old male with past medical history of heavy alcohol consumption and dependence. Apparently he had been sober for some time. He has had alcohol withdrawal seizures in the past every time he quits and has required hospital admissions. According to the girlfriend who is providing most of the history, they had gone to [employer] to have lunch and she noted that he started sweating and was kind of just staring at her not focusing. States that she had to prompt him to stand up and leave and he was slow to respond. She insisted on driving and on the way home he had a seizure. She immediately brought him to the hospital for evaluation. By the time he arrived in the emergency room he was no longer seizing and was reportedly postictal. Significant other indicated that she was not aware that the patient was drinking , his blood alcohol level was 18. Patient finally started waking up and was confronted by the ER physician and he finally admitted to having 3 drinks last evening in 3 drinks the night before. Laboratory workup was completed, magnesium was 1.5. Ammonia was elevated at 91. Troponin was negative. Toxicology was negative. He was noted hypertensive and required hydralazine 2 , Labetalol, and Clonidine. He complained of indigestion and received a GI cocktail. She was initiated on a Cardene drip for hypertension initially .While he was been evaluated by hospitalist, patient had another seizure. He received Ativan 1 mg and was loaded with Keppra. According to the significant other, she didn't know that he had started drinking. She denies any illegal drug use. Patient was admitted to the ICU and started on alcohol withdrawal protocol. Patient was evaluated by neurology for seizures and put him on Keppra and felt these were alcohol withdrawal seizures. He was also evaluated by cardiology Dr. Raphael for borderline troponin which was felt to be secondary to the seizure. She developed worsening agitation and alcohol withdrawal on 12/09 and received 16 mg of Ativan since this morning. Critical care medicine was consulted by hospitalist service to assist with management for alcohol withdrawal. I evaluated the patient intermittently on being notified. At that time he was drowsy though arousable in restraints for bilateral upper extremities. He was extremely delirious confused and disoriented and was having some tremors involving his upper extremities. He had just received additional Ativan 2 mg IV ordered by me for agitation. History was obtained by reviewing records and discussion with nursing staff. ROS - General Review of Systems ROS Limitations: Clinical Condition PFSH Past Family Social History Past Medical History ETOH abuse Seizures 2015 due to ETOH withdrawal HTN CHF Asthma as a child Hyperlipidemia Gout Martita-Majano tears related to alcohol abuse. Past Surgical History His past surgical history is significant for abdominal surgery in the past. ALLERGIES: PENICILLIN. SOCIAL HISTORY: The patient has been a heavy alcohol user for more than thirty years. He is also a smoker and smokes about 1-1/2 packs per day for fifty years. No history of drug abuse. The patient is retired and worked as a avionics system engineer. He currently lives at home with his daughter and periodically has a girlfriend. His of many years was also a heavy alcohol drinker and one year ago. Reported Medications Reported Meds & Active Scripts Active Reported Tums (Calcium Carbonate (Antacid)) 500 Mg Chew 1,000 Mg CHEW Q6HR PRN Aspirin DR (Aspirin) 81 Mg Tabdr 81 Mg PO DAILY Labetalol (Labetalol HCl) 200 Mg Tab 200 Mg PO BID Clonidine (Clonidine HCl) 0.2 Mg Tab 0.2 Mg PO BID Atorvastatin (Atorvastatin Calcium) 40 Mg Tab 40 Mg PO DAILY Allergies: Coded Allergies: Penicillin (Verified Allergy, Mild, PASS OUT, 12/07/16) Active Ordered Medications Administered Medications Medications (Trade) Dose Ordered Sig/Ruthann Route PRN Reason Start Time Stop Time Status Last Admin Dose Admin Sodium Chloride (NS Flush) 2 ml UNSCH PRN IV FLUSH FLUSH AFTER USING IV ACCESS 12/07/16 17:45 12/09/16 02:01 Sodium Chloride (NS Flush) 2 ml BID IV FLUSH 12/07/16 21:00 12/09/16 07:19 Ondansetron HCl (Zofran Inj) 4 mg Q6H PRN IVP NAUSEA OR VOMITING 12/07/16 17:45 12/08/16 09:34 Senna/Docusate Sodium (Luz Elena-Colace) 1 tab BID PO 12/07/16 21:00 12/09/16 07:19 Lorazepam (Ativan Inj) 1 mg Q4H PRN IV PUSH CIWA 8 - 10 12/07/16 18:00 12/09/16 02:01 Lorazepam (Ativan Inj) 2 mg Q1H PRN IV PUSH CIWA 15-20 12/07/16 18:00 12/09/16 16:38 Lorazepam 2 mg 2 mg Q15M PRN IV PUSH CIWA > 20 12/07/16 18:00 12/09/16 16:38 Multivitamins 10 ml/Folic Acid 1 mg/Sodium Chloride 510.2 ml @ 125 mls/hr Q24H IV 12/07/16 20:00 12/12/16 19:59 12/08/16 19:36 Thiamine HCl/ Sodium Chloride (Thiamine Inj/NS Inj) 101 ml @ 100 mls/hr Q24H IV 12/07/16 20:00 12/10/16 19:59 12/08/16 19:36 Pantoprazole Sodium (Protonix Inj) 40 mg Q24H IV PUSH 12/08/16 18:00 12/08/16 14:02 Hydralazine HCl (Apresoline Inj) 20 mg Q4H PRN IV PUSH SBP>160, DBP>90 12/07/16 19:30 12/09/16 11:49 Chlorhexidine Gluconate (Chlorhexidine 2% Cloth) 3 pack DAILY@04 TOPICAL 12/08/16 04:00 12/12/16 04:01 12/08/16 19:37 Calcium Carbonate (Tums Chew) 500 mg Q2H PRN CHEW INDIGESTION 12/08/16 15:00 12/08/16 17:42 Aspirin (Ecotrin Ec) 81 mg DAILY PO 12/09/16 09:00 12/09/16 07:19 Levetriacetam 500 mg 500 mg Q12HR PO 12/08/16 21:00 12/09/16 07:19 Dextrose/Sodium Chloride (D5W-NS 1000 ml Inj) 1,000 ml @ 50 mls/hr Q20H IV 12/09/16 10:00 12/09/16 10:40 Atorvastatin Calcium (Lipitor) 40 mg DAILY PO 12/09/16 10:15 12/09/16 10:40 Clonidine (Catapres) 0.2 mg BID PO 12/09/16 10:15 12/09/16 10:40 Family History Unable to obtain Social History Lives with significant other. Has grown children. + ETOH abuse, was supposed to be sober but apparently drank 3 drinks yesterday. Possibly started smoking again. No substance abuse. Physical Exam Vital Signs Vital Signs Date Time Temp Pulse Resp B/P Pulse Ox O2 Delivery O2 Flow Rate FiO2 12/09/16 14:00 101 12/09/16 12:00 107 12/09/16 12:00 98.5 107 26 181/90 96 12/09/16 11:50 103 18 191/97 93 12/09/16 11:30 103 24 191/88 94 12/09/16 11:00 123 24 176/101 94 12/09/16 10:58 120 29 185/100 97 12/09/16 10:00 112 21 196/96 95 12/09/16 10:00 112 12/09/16 09:55 120 31 184/86 89 12/09/16 09:42 115 24 203/106 12/09/16 09:30 112 23 207/109 98 12/09/16 09:00 111 27 184/97 94 12/09/16 08:41 116 36 195/98 12/09/16 08:30 112 36 194/129 12/09/16 08:00 98.8 110 27 183/91 12/09/16 08:00 110 12/09/16 07:55 111 39 189/108 88 12/09/16 07:46 106 39 182/101 87 12/09/16 07:30 102 28 195/107 94 12/09/16 07:12 104 38 184/106 100 12/09/16 07:07 105 35 182/102 93 12/09/16 07:00 98 Nasal Cannula 2.00 12/09/16 07:00 108 35 98 12/09/16 06:00 104 12/09/16 04:00 97 12/09/16 04:00 99.2 97 32 201/96 98 12/09/16 02:00 95 12/09/16 00:00 98.5 87 27 193/91 99 12/09/16 00:00 87 12/08/16 22:00 89 12/08/16 20:06 95 Nasal Cannula 2.00 12/08/16 20:00 99.0 87 28 169/86 92 12/08/16 20:00 87 12/08/16 18:00 88 25 164/120 96 12/08/16 18:00 88 12/08/16 17:36 85 25 164/88 96 12/08/16 17:00 86 12 170/91 97 Physical Exam HEENT/Neuro: No pallor or icterus, tongue moist, JOHNATHAN, drowsy but easily arousable, disoriented, thinks it is 1969. Speech extremely slurred and garbled. Having tremors in bilateral upper extremities., nonfocal grossly, moving all 4 extremities. Currently in bilateral upper extremity restraints for agitation Neck: No JVD Chest/pulmonary: CTA bilaterally Cardiovascular: S1-S2 regular no gallop or murmur GI/abdomen: Soft, nontender, bowel sounds present Extremities: Warm bilaterally, no edema Laboratory Laboratory Tests Test 12/08/16 12/09/16 12/09/16 12/09/16 18:55 00:12 04:08 08:47 Sodium Level 134 134 130 Potassium Level 3.2 3.3 3.1 Chloride Level 94 96 89 Carbon Dioxide Level 34.2 31.1 34.7 Anion Gap 6 7 6 Blood Urea Nitrogen 13 12 11 Creatinine 0.99 0.80 0.86 Estimat Glomerular Filtration 76 98 90 Rate Random Glucose 129 125 117 Calcium Level 8.9 8.4 9.2 Troponin I 0.05 0.04 0.03 Magnesium Level 1.6 White Blood Count 14.7 Red Blood Count 3.77 Hemoglobin 13.3 Hematocrit 37.8 Mean Corpuscular Volume 100.3 Mean Corpuscular Hemoglobin 35.2 Mean Corpuscular Hemoglobin 35.1 Concent Red Cell Distribution Width 14.6 Platelet Count 159 Mean Platelet Volume 9.5 Neutrophils (%) (Auto) 89.1 Lymphocytes (%) (Auto) 6.0 Monocytes (%) (Auto) 4.6 Eosinophils (%) (Auto) 0.0 Basophils (%) (Auto) 0.3 Neutrophils # (Auto) 13.1 Lymphocytes # (Auto) 0.9 Monocytes # (Auto) 0.7 Eosinophils # (Auto) 0.0 Basophils # (Auto) 0.0 CBC Comment AUTO DIFF Differential Comment AUTO DIFF CONFIRMED Test 12/09/16 12:25 Troponin I 0.04 Result Diagram: 12/09/16 0408 12/09/16 0847 Imaging Laboratory Tests Test 12/08/16 12/09/16 12/09/1617 18:55 00:12 04:08 08:47 Sodium Level 134 MEQ/L 134 MEQ/L 130 MEQ/L Potassium Level 3.2 MEQ/L 3.3 MEQ/L 3.1 MEQ/L Chloride Level 94 MEQ/L 96 MEQ/L 89 MEQ/L Carbon Dioxide Level 34.2 MEQ/L 31.1 MEQ/L 34.7 MEQ/L Anion Gap 6 MEQ/L 7 MEQ/L 6 MEQ/L Blood Urea Nitrogen 13 MG/DL 12 MG/DL 11 MG/DL Creatinine 0.99 MG/DL 0.80 MG/DL 0.86 MG/DL Estimat Glomerular Filtration 76 ML/MIN 98 ML/MIN 90 ML/MIN Rate Random Glucose 129 MG/DL 125 MG/DL 117 MG/DL Calcium Level 8.9 MG/DL 8.4 MG/DL 9.2 MG/DL Troponin I 0.05 NG/ML 0.04 NG/ML 0.03 NG/ML Magnesium Level 1.6 MG/DL White Blood Count 14.7 TH/MM3 Red Blood Count 3.77 MIL/MM3 Hemoglobin 13.3 GM/DL Hematocrit 37.8 % Mean Corpuscular Volume 100.3 FL Mean Corpuscular Hemoglobin 35.2 PG Mean Corpuscular Hemoglobin 35.1 % Concent Red Cell Distribution Width 14.6 % Platelet Count 159 TH/MM3 Mean Platelet Volume 9.5 FL Neutrophils (%) (Auto) 89.1 % Lymphocytes (%) (Auto) 6.0 % Monocytes (%) (Auto) 4.6 % Eosinophils (%) (Auto) 0.0 % Basophils (%) (Auto) 0.3 % Neutrophils # (Auto) 13.1 TH/MM3 Lymphocytes # (Auto) 0.9 TH/MM3 Monocytes # (Auto) 0.7 TH/MM3 Eosinophils # (Auto) 0.0 TH/MM3 Basophils # (Auto) 0.0 TH/MM3 CBC Comment AUTO DIFF Differential Comment AUTO DIFF CONFIRMED Test 12/09/16 12:25 Troponin I 0.04 NG/ML Assessment and Plan Assessment and Plan 65-year-old male with: Severe alcohol withdrawal/delirium tremens Alcohol withdrawal seizure GRETCHEN Hypertensive urgency Hypokalemia Plan: Neuro: Continue Ativan per alcohol withdrawal protocol. Continue thiamine folic acid MVI. Will add Librium 20 mg by mouth twice a day. Initiate Precedex gtt. for control of alcohol withdrawal. Add Haldol when necessary. Continue neuro checks. On Keppra per neurology. Neuro follow-up. Cardiovascular: IV hydration, 2-D echo with LVH, EF normal. On by mouth labetalol. Nicardipine drip for hypertension as needed. Will add labetalol 20 mg IV every 2 hourly when necessary for hypertension. Pulmonary: Supplemental O2 as needed. GI/liver: Nothing by mouth except meds for now. Advance by mouth as neuro status improves. Renal/: IV hydration, strict intake output, monitor and replete electrolytes, follow BUN/creatinine. ID: Watch for fever. Leukocytosis noted. No antibiotics at this time. We will get gibbs cultures for temperature spike Endocrine: Watch for hyperglycemia, SSI for glycemic control if needed Prophylaxis: PPI/SCDs/Lovenox Condition critical Time spent on critical care excluding procedures 40 min Tian Porter MD Dec 09, 2016 17:11
[2016-12-09] MEDS: LABETALOL HCL 100 MG/20 ML VIAL IV PUSH PRN (18:16)
[2016-12-09] MEDS: PANTOPRAZOLE SODIUM 40 MG VIAL IV PUSH SCH (18:16)
[2016-12-09] MEDS: DEXMEDETOMIDINE INJ 200 MCG in SODIUM CHLORIDE 0.9% INJ 50 ML IV SCH ×2 (18:17→20:34)
[2016-12-09] MEDS: ENOXAPARIN SODIUM 40 MG/0.4 ML SYRINGE SQ SCH (18:17)
[2016-12-09] MEDS: THIAMINE INJ 100 MG in SODIUM CHLORIDE 0.9% INJ 100 ML IV SCH (20:24)
[2016-12-09] MEDS: LORazepam 2 MG/ML VIAL IV PUSH SCH ×2 (20:25→23:33)
[2016-12-09] MEDS: MULTIVITAMIN INJ 10 ML, FOLIC ACID INJ 1 MG in SODIUM CHLORID 0.9% 500 ML INJ 500 ML IV SCH (20:49)
[2016-12-09] MEDS: LABETALOL HCL 200 MG TAB PO SCH (21:00)
[2016-12-09 21:06] LABS: BACTERIA, URINE RARE /hpf; BLOOD, URINE MOD (NEG); GLUCOSE,URINE NEG (NEG); KETONE, URINE NEG (NEG); MUCUS URINE FEW /lpf (OCC); NITRITE,URINE NEG (NEG); PH, URINE 7.5 (5.0-8.5); URINE COLOR YELLOW (YELLW/STRAW)
[2016-12-09 21:07] LABS: COMMENT (UR) CATH-CULTURE IND; CULTURE IF INDICATED CATH CULTURE IND
[2016-12-09] MEDS: POTASSIUM CHLOR 20 MEQ PREMIX 100 ML IV SCH ×2 (21:42→23:33)
[2016-12-09] MEDS: levETIRAcetam INJ 500 MG in SODIUM CHLORIDE 0.9% INJ 100 ML IV SCH (21:56)
[2016-12-09] MEDS: DEXMEDETOMIDINE INJ 400 MCG in SODIUM CHLORIDE 0.9% INJ 100 ML IV SCH (22:00)
[2016-12-10] VITALS (14 sets, daily range): BP systolic 129–188; BP diastolic 74–105; PULSE 60–126; RESP 17–24; TEMP 96.3–99; O2SAT 94–96
[2016-12-10] MEDS: CHLORHEXIDINE GLUCONATE 2 % 1 PACK (2 CLOTHS)(taper/protocol) TOPICAL SCH (02:28)
[2016-12-10] MEDS: LORazepam 2 MG/ML VIAL IV PUSH SCH ×2 (02:28→04:31)
[2016-12-10] MEDS: DEXT 5%-NACL 0.9% 1000 ML INJ 1,000 ML IV SCH (04:32)
[2016-12-10] MEDS: DEXMEDETOMIDINE INJ 400 MCG in SODIUM CHLORIDE 0.9% INJ 100 ML IV SCH ×3 (04:36→19:40)
[2016-12-10] MEDS: hydrALAZINE HCL 20 MG/ML VIAL IV PUSH PRN ×3 (04:44→17:20)
[2016-12-10 05:37] LABS: AUTOMATED NEUTROPHIL # 6.5 TH/MM3 (1.8-7.7); BASOPHIL % 0.2 % (0.0-2.0); EOSINOPHIL % 0.3 % (0.0-4.0); HEMATOCRIT 34.1 % (39.0-51.0); HEMO FLAGS DIFF FINAL; LYMPH % 10.1 % (9.0-44.0); LYMPHOCYTE # 0.8 TH/MM3 (1.0-4.8); MEAN CORPUSCULAR HEMOGLOBIN 35.1 PG (27.0-34.0); MEAN CORPUSCULAR HGB CONC 34.8 % (32.0-36.0); MONO % 7.7 % (0.0-8.0); NEUT % 81.7 % (16.0-70.0); PLATELET COUNT 140 TH/MM3 (150-450); RED BLOOD COUNT 3.38 MIL/MM3 (4.50-5.90); RED CELL DISTRIBUTION WIDTH 14.7 % (11.6-17.2); WHITE BLOOD COUNT 7.9 TH/MM3 (4.0-11.0)
--- NOTE | 2016-12-10 05:48 | RADRPT ---
EXAM DATE/TIME: 12/10/2016 03:47 [place] COMPARISON: CHEST SINGLE AP, December 07, 2016, 17:59. INDICATIONS : Shortness of breath, possible pulmonary disease. MEDICAL HISTORY : Congestive heart failure. Hypertension Seizures SURGICAL HISTORY : None. ENCOUNTER: Subsequent ACUITY: 3 days PAIN SCORE: Non-responsive. LOCATION: Bilateral chest FINDINGS: A single view of the chest demonstrates significant new airspace disease in the right lower lobe poss ible pneumonia or aspiration. Left lung is clear. No evidence of failure The cardiomediastinal conto urs are unremarkable. Osseous structures are intact. CONCLUSION: Dense infiltrate in the right lower lobe new from the previous study. Francis Norris MD on December 10, 2016 at 5:46 Board Certified Radiologist. This report was verified electronically.
[2016-12-10 06:14] LABS: BICARBONATE 29.9 MEQ/L (21.0-32.0); POTASSIUM 3.5 MEQ/L (3.5-5.1)
[2016-12-10] MEDS: ASPIRIN EC 81 MG TABEC PO SCH (08:08)
[2016-12-10] MEDS: cloNIDine HCL 0.2 MG TAB PO SCH ×2 (08:08→21:16)
[2016-12-10] MEDS: ATORVASTATIN 40 MG TAB PO SCH (08:08)
[2016-12-10] MEDS: THIAMINE HCL 100 MG TAB PO SCH (08:09)
[2016-12-10] MEDS: LABETALOL HCL 200 MG TAB PO SCH ×2 (08:09→21:16)
[2016-12-10] MEDS: DOCUSATE SODIUM 50 MG/SENNA 8.6 MG TAB PO SCH ×2 (08:09→21:16)
[2016-12-10] MEDS: levETIRAcetam INJ 500 MG in SODIUM CHLORIDE 0.9% INJ 100 ML IV SCH ×2 (08:17→20:52)
[2016-12-10] MEDS: LORazepam 2 MG/ML VIAL IV PUSH PRN ×7 (10:06→21:08)
[2016-12-10] MEDS: SODIUM CHLORIDE 0.9% FLUSH 10 ML FLUSH IV FLUSH SCH ×2 (10:07→20:53)
--- NOTE | 2016-12-10 12:44 | HHI.CCPN ---
Subjective Remarks/Hospital Course 12/09: Patient is a 65 year old male with past medical history of heavy alcohol consumption and dependence. Apparently he had been sober for some time. He has had alcohol withdrawal seizures in the past every time he quits and has required hospital admissions. According to the girlfriend who is providing most of the history, they had gone to [place] to have lunch and she noted that he started sweating and was kind of just staring at her not focusing. States that she had to prompt him to stand up and leave and he was slow to respond. She insisted on driving and on the way home he had a seizure. She immediately brought him to the hospital for evaluation. By the time he arrived in the emergency room he was no longer seizing and was reportedly postictal. Significant other indicated that she was not aware that the patient was drinking , his blood alcohol level was 18. Patient finally started waking up and was confronted by the ER physician and he finally admitted to having 3 drinks last evening in 3 drinks the night before. Laboratory workup was completed, magnesium was 1.5. Ammonia was elevated at 91. Troponin was negative. Toxicology was negative. He was noted hypertensive and required hydralazine 2 , Labetalol, and Clonidine. He complained of indigestion and received a GI cocktail. She was initiated on a Cardene drip for hypertension initially .While he was been evaluated by hospitalist, patient had another seizure. He received Ativan 1 mg and was loaded with Keppra. According to the significant other, she didn't know that he had started drinking. She denies any illegal drug use. Patient was admitted to the ICU and started on alcohol withdrawal protocol. Patient was evaluated by neurology for seizures and put him on Keppra and felt these were alcohol withdrawal seizures. He was also evaluated by cardiology Dr. Raphael for borderline troponin which was felt to be secondary to the seizure. She developed worsening agitation and alcohol withdrawal on 12/09 and received 16 mg of Ativan since this morning. Critical care medicine was consulted by hospitalist service to assist with management for alcohol withdrawal. I evaluated the patient intermittently on being notified. At that time he was drowsy though arousable in restraints for bilateral upper extremities. He was extremely delirious confused and disoriented and was having some tremors involving his upper extremities. He had just received additional Ativan 2 mg IV ordered by me for agitation. History was obtained by reviewing records and discussion with nursing staff. 12/10: Remains on Precedex for agitation. Resting in bed comfortably currently. Drowsy though arousable. Disoriented, not following commands. Objective Vital Signs Date Time Temp Pulse Resp B/P Pulse Ox O2 Delivery O2 Flow Rate FiO2 12/10/16 12:00 71 12/10/16 12:00 97.1 20 172/81 94 12/10/16 07:34 Venturi Mask 6.00 50 Intake and Output 12/09/16 12/09/16 12/09/16 07:59 15:59 23:59 Intake Total 727 ml 515 ml 519 ml Output Total 750 ml 625 ml 250 ml Balance -23 ml -110 ml 269 ml Result Diagram: 12/10/16 0356 12/10/16 0356 Other Results Laboratory Tests Test 12/09/16 12/10/16 18:30 03:56 Urine Color YELLOW Urine Turbidity CLEAR Urine pH 7.5 Urine Specific [place] 1.011 Urine Protein TRACE mg/dL Urine Glucose (UA) NEG mg/dL Urine Ketones NEG mg/dL Urine Occult Blood MOD Urine Nitrite NEG Urine Bilirubin NEG Urine Urobilinogen LESS THAN 2.0 MG/DL Urine Leukocyte Esterase MOD Urine RBC 25 /hpf Urine WBC 9 /hpf Urine Bacteria RARE /hpf Urine Mucus FEW /lpf Microscopic Urinalysis Comment CATH-CULTURE IND White Blood Count 7.9 TH/MM3 Red Blood Count 3.38 MIL/MM3 Hemoglobin 11.9 GM/DL Hematocrit 34.1 % Mean Corpuscular Volume 101.0 FL Mean Corpuscular Hemoglobin 35.1 PG Mean Corpuscular Hemoglobin 34.8 % Concent Red Cell Distribution Width 14.7 % Platelet Count 140 TH/MM3 Mean Platelet Volume 10.1 FL Neutrophils (%) (Auto) 81.7 % Lymphocytes (%) (Auto) 10.1 % Monocytes (%) (Auto) 7.7 % Eosinophils (%) (Auto) 0.3 % Basophils (%) (Auto) 0.2 % Neutrophils # (Auto) 6.5 TH/MM3 Lymphocytes # (Auto) 0.8 TH/MM3 Monocytes # (Auto) 0.6 TH/MM3 Eosinophils # (Auto) 0.0 TH/MM3 Basophils # (Auto) 0.0 TH/MM3 CBC Comment DIFF FINAL Differential Comment Sodium Level 136 MEQ/L Potassium Level 3.5 MEQ/L Chloride Level 99 MEQ/L Carbon Dioxide Level 29.9 MEQ/L Anion Gap 7 MEQ/L Blood Urea Nitrogen 15 MG/DL Creatinine 0.84 MG/DL Estimat Glomerular Filtration 92 ML/MIN Rate Random Glucose 101 MG/DL Calcium Level 8.6 MG/DL Imaging Laboratory Tests Test 12/08/16 12/09/16 12/09/16 12/09/16 18:55 00:12 04:08 08:47 Sodium Level 134 MEQ/L 134 MEQ/L 130 MEQ/L Potassium Level 3.2 MEQ/L 3.3 MEQ/L 3.1 MEQ/L Chloride Level 94 MEQ/L 96 MEQ/L 89 MEQ/L Carbon Dioxide Level 34.2 MEQ/L 31.1 MEQ/L 34.7 MEQ/L Anion Gap 6 MEQ/L 7 MEQ/L 6 MEQ/L Blood Urea Nitrogen 13 MG/DL 12 MG/DL 11 MG/DL Creatinine 0.99 MG/DL 0.80 MG/DL 0.86 MG/DL Estimat Glomerular Filtration 76 ML/MIN 98 ML/MIN 90 ML/MIN Rate Random Glucose 129 MG/DL 125 MG/DL 117 MG/DL Calcium Level 8.9 MG/DL 8.4 MG/DL 9.2 MG/DL Troponin I 0.05 NG/ML 0.04 NG/ML 0.03 NG/ML Magnesium Level 1.6 MG/DL White Blood Count 14.7 TH/MM3 Red Blood Count 3.77 MIL/MM3 Hemoglobin 13.3 GM/DL Hematocrit 37.8 % Mean Corpuscular Volume 100.3 FL Mean Corpuscular Hemoglobin 35.2 PG Mean Corpuscular Hemoglobin 35.1 % Concent Red Cell Distribution Width 14.6 % Platelet Count 159 TH/MM3 Mean Platelet Volume 9.5 FL Neutrophils (%) (Auto) 89.1 % Lymphocytes (%) (Auto) 6.0 % Monocytes (%) (Auto) 4.6 % Eosinophils (%) (Auto) 0.0 % Basophils (%) (Auto) 0.3 % Neutrophils # (Auto) 13.1 TH/MM3 Lymphocytes # (Auto) 0.9 TH/MM3 Monocytes # (Auto) 0.7 TH/MM3 Eosinophils # (Auto) 0.0 TH/MM3 Basophils # (Auto) 0.0 TH/MM3 CBC Comment AUTO DIFF Differential Comment AUTO DIFF CONFIRMED Test 12/09/16 12:25 Troponin I 0.04 NG/ML Objective Remarks HEENT/Neuro: No pallor or icterus, tongue moist, JOHNATHAN, drowsy but easily arousable, disoriented, thinks it is 1969. Speech extremely slurred and garbled. Having tremors in bilateral upper extremities., nonfocal grossly, moving all 4 extremities. Currently in bilateral upper extremity restraints for agitation Neck: No JVD Chest/pulmonary: CTA bilaterally Cardiovascular: S1-S2 regular no gallop or murmur GI/abdomen: Soft, nontender, bowel sounds present Extremities: Warm bilaterally, no edema A/P Assessment and Plan 65-year-old male with: Severe alcohol withdrawal/delirium tremens Alcohol withdrawal seizure GRETCHEN Hypertensive urgency Hypokalemia Plan: Neuro: Continue Ativan per alcohol withdrawal protocol. Continue thiamine folic acid MVI. Will add Librium 20 mg by mouth twice a day however currently not able to take by mouth. Initiate Precedex gtt. for control of alcohol withdrawal. Add Haldol when necessary. Continue neuro checks. On Keppra per neurology. Neuro follow-up. Cardiovascular: IV hydration, 2-D echo with LVH, EF normal. On by mouth labetalol. Nicardipine drip for hypertension as needed. Labetalol 20 mg IV every 2 hourly when necessary for hypertension. Pulmonary: Supplemental O2 as needed. GI/liver: Nothing by mouth except meds for now. Advance by mouth as neuro status improves. May require Dobbhoff placement Renal/: IV hydration, strict intake output, monitor and replete electrolytes, follow BUN/creatinine. ID: Watch for fever. Leukocytosis noted. No antibiotics at this time. We will get gibbs cultures for temperature spike Endocrine: Watch for hyperglycemia, SSI for glycemic control if needed Prophylaxis: PPI/SCDs/Lovenox Condition critical Time spent on critical care excluding procedures 30 min Tian Porter MD Dec 10, 2016 12:43
--- NOTE | 2016-12-10 14:10 | PD.CARD.PN ---
Subjective Subjective Remarks on anti siezure meds, asleep and/or sedated in nad Objective Vital Signs / I&O Vital Signs Date Time Temp Pulse Resp B/P Pulse Ox O2 Delivery O2 Flow Rate FiO2 12/10/16 12:00 71 12/10/16 12:00 97.1 70 20 172/81 94 12/10/16 10:00 60 12/10/16 08:00 96.3 62 17 160/89 94 12/10/16 08:00 62 12/10/16 07:34 95 Venturi Mask 6.00 50 12/10/16 07:00 94 Venturi Mask 6.00 40 12/10/16 06:00 61 12/10/16 04:00 98.4 63 24 158/105 96 12/10/16 04:00 63 12/10/16 02:00 64 12/10/16 00:00 69 12/10/16 00:00 97.6 69 20 129/74 95 12/09/16 22:00 71 12/09/16 21:48 93 Venturi Mask 6.00 40 12/09/16 21:00 94 Venturi Mask 6.00 40 12/09/16 20:53 95 Venturi Mask 3.00 31 12/09/16 20:17 95 Nasal Cannula 3.00 12/09/16 20:00 73 12/09/16 20:00 97.6 73 28 118/62 94 12/09/16 19:00 101 33 94 12/09/16 19:00 94 Nasal Cannula 3.00 12/09/16 18:49 100 31 128/94 95 12/09/16 18:23 85 24 212/95 93 12/09/16 18:16 102 22 207/94 95 12/09/16 18:01 106 27 238/101 95 12/09/16 18:00 98 24 93 12/09/16 18:00 98 12/09/16 17:30 97 23 175/99 88 12/09/16 17:00 95 24 158/79 92 12/09/16 16:30 111 23 147/86 93 12/09/16 16:15 98.8 134 35 153/86 94 12/09/16 16:00 151 12/09/16 16:00 151 34 90 12/09/16 15:12 106 24 189/93 96 12/09/16 15:00 103 20 212/95 91 12/09/16 14:30 103 14 188/94 94 12/09/16 14:19 102 16 199/95 92 I/O 12/09/16 12/09/16 12/09/16 12/10/16 12/10/16 12/10/16 07:00 15:00 23:00 07:00 15:00 23:00 Intake Total 727 ml 515 ml 519 ml 1166 ml Output Total 750 ml 625 ml 250 ml 650 ml Balance -23 ml -110 ml 269 ml 516 ml Intake Oral 100 ml IV Total 627 ml 515 ml 519 ml 1166 ml Output Urine Total 750 ml 625 ml 250 ml 650 ml # Bowel Movements 0 0 0 0 Physical Exam GENERAL: SKIN: Warm and dry. HEAD: Normocephalic. EYES: No scleral icterus. No injection or drainage. NECK: Supple, trachea midline. No JVD or lymphadenopathy. CARDIOVASCULAR: Regular rate and rhythm without murmurs, gallops, or rubs. RESPIRATORY: Breath sounds equal bilaterally. No accessory muscle use. GASTROINTESTINAL: Abdomen soft, non-tender, nondistended. MUSCULOSKELETAL: No cyanosis, or edema. BACK: Nontender without obvious deformity. No CVA tenderness. Laboratory Laboratory Tests Test 12/09/16 12/10/16 18:30 03:56 Urine Color YELLOW Urine Turbidity CLEAR Urine pH 7.5 Urine Specific [place] 1.011 Urine Protein TRACE mg/dL Urine Glucose (UA) NEG mg/dL Urine Ketones NEG mg/dL Urine Occult Blood MOD Urine Nitrite NEG Urine Bilirubin NEG Urine Urobilinogen LESS THAN 2.0 MG/DL Urine Leukocyte Esterase MOD Urine RBC 25 /hpf Urine WBC 9 /hpf Urine Bacteria RARE /hpf Urine Mucus FEW /lpf Microscopic Urinalysis Comment CATH-CULTURE IND White Blood Count 7.9 TH/MM3 Red Blood Count 3.38 MIL/MM3 Hemoglobin 11.9 GM/DL Hematocrit 34.1 % Mean Corpuscular Volume 101.0 FL Mean Corpuscular Hemoglobin 35.1 PG Mean Corpuscular Hemoglobin 34.8 % Concent Red Cell Distribution Width 14.7 % Platelet Count 140 TH/MM3 Mean Platelet Volume 10.1 FL Neutrophils (%) (Auto) 81.7 % Lymphocytes (%) (Auto) 10.1 % Monocytes (%) (Auto) 7.7 % Eosinophils (%) (Auto) 0.3 % Basophils (%) (Auto) 0.2 % Neutrophils # (Auto) 6.5 TH/MM3 Lymphocytes # (Auto) 0.8 TH/MM3 Monocytes # (Auto) 0.6 TH/MM3 Eosinophils # (Auto) 0.0 TH/MM3 Basophils # (Auto) 0.0 TH/MM3 CBC Comment DIFF FINAL Differential Comment Sodium Level 136 MEQ/L Potassium Level 3.5 MEQ/L Chloride Level 99 MEQ/L Carbon Dioxide Level 29.9 MEQ/L Anion Gap 7 MEQ/L Blood Urea Nitrogen 15 MG/DL Creatinine 0.84 MG/DL Estimat Glomerular Filtration 92 ML/MIN Rate Random Glucose 101 MG/DL Calcium Level 8.6 MG/DL Assessment and Plan Problem List: (1) Seizure (2) Alcohol withdrawal seizure (3) Hypertensive urgency (4) GRETCHEN (acute kidney injury) (5) Alcohol abuse Assessment and Plan 1.) Troponon elevation - suspect secondary to siezure, rec dc tobacco, bp improved on labetolol 200 mg bid , cont aspirin 81 mg qd, lipitor 20 mg hs Problem Qualifiers (1) Alcohol withdrawal seizure: Qualified Code: F10.239 - Alcohol withdrawal seizure, with unspecified complication Seferino Raphael MD Dec 10, 2016 14:10
--- NOTE | 2016-12-10 14:46 | HHI.PR ---
Subjective Interval History patient laying in bed on precedex gtt BP high sedated but arousable no family at bedside Vitals/Results Intake & Output 12/09/16 12/09/16 12/10/16 15:00 23:00 07:00 Intake Total 515 ml 519 ml 1166 ml Output Total 625 ml 250 ml 650 ml Balance -110 ml 269 ml 516 ml IV Total 515 ml 519 ml 1166 ml Output Urine Total 625 ml 250 ml 650 ml # Bowel Movements 0 0 0 Vital Signs Vital Signs Date Time Temp Pulse Resp B/P Pulse Ox O2 Delivery O2 Flow Rate FiO2 12/10/16 14:00 68 12/10/16 12:00 71 12/10/16 12:00 97.1 70 20 172/81 94 12/10/16 10:00 60 12/10/16 08:00 96.3 62 17 160/89 94 12/10/16 08:00 62 12/10/16 07:34 95 Venturi Mask 6.00 50 12/10/16 07:00 94 Venturi Mask 6.00 40 12/10/16 06:00 61 12/10/16 04:00 98.4 63 24 158/105 96 12/10/16 04:00 63 12/10/16 02:00 64 12/10/16 00:00 69 12/10/16 00:00 97.6 69 20 129/74 95 12/09/16 22:00 71 12/09/16 21:48 93 Venturi Mask 6.00 40 12/09/16 21:00 94 Venturi Mask 6.00 40 12/09/16 20:53 95 Venturi Mask 3.00 31 12/09/16 20:17 95 Nasal Cannula 3.00 12/09/16 20:00 73 12/09/16 20:00 97.6 73 28 118/62 94 12/09/16 19:00 101 33 94 12/09/16 19:00 94 Nasal Cannula 3.00 12/09/16 18:49 100 31 128/94 95 12/09/16 18:23 85 24 212/95 93 12/09/16 18:16 102 22 207/94 95 12/09/16 18:01 106 27 238/101 95 12/09/16 18:00 98 24 93 12/09/16 18:00 98 12/09/16 17:30 97 23 175/99 88 12/09/16 17:00 95 24 158/79 92 12/09/16 16:30 111 23 147/86 93 12/09/16 16:15 98.8 134 35 153/86 94 12/09/16 16:00 151 12/09/16 16:00 151 34 90 12/09/16 15:12 106 24 189/93 96 12/09/16 15:00 103 20 212/95 91 CBC/BMP: 12/10/16 0356 12/10/16 0356 Lab Results Laboratory Tests Test 12/09/16 12/10/16 18:30 03:56 Urine Color YELLOW Urine Turbidity CLEAR Urine pH 7.5 Urine Specific [place] 1.011 Urine Protein TRACE mg/dL Urine Glucose (UA) NEG mg/dL Urine Ketones NEG mg/dL Urine Occult Blood MOD Urine Nitrite NEG Urine Bilirubin NEG Urine Urobilinogen LESS THAN 2.0 MG/DL Urine Leukocyte Esterase MOD Urine RBC 25 /hpf Urine WBC 9 /hpf Urine Bacteria RARE /hpf Urine Mucus FEW /lpf Microscopic Urinalysis Comment CATH-CULTURE IND White Blood Count 7.9 TH/MM3 Red Blood Count 3.38 MIL/MM3 Hemoglobin 11.9 GM/DL Hematocrit 34.1 % Mean Corpuscular Volume 101.0 FL Mean Corpuscular Hemoglobin 35.1 PG Mean Corpuscular Hemoglobin 34.8 % Concent Red Cell Distribution Width 14.7 % Platelet Count 140 TH/MM3 Mean Platelet Volume 10.1 FL Neutrophils (%) (Auto) 81.7 % Lymphocytes (%) (Auto) 10.1 % Monocytes (%) (Auto) 7.7 % Eosinophils (%) (Auto) 0.3 % Basophils (%) (Auto) 0.2 % Neutrophils # (Auto) 6.5 TH/MM3 Lymphocytes # (Auto) 0.8 TH/MM3 Monocytes # (Auto) 0.6 TH/MM3 Eosinophils # (Auto) 0.0 TH/MM3 Basophils # (Auto) 0.0 TH/MM3 CBC Comment DIFF FINAL Differential Comment Sodium Level 136 MEQ/L Potassium Level 3.5 MEQ/L Chloride Level 99 MEQ/L Carbon Dioxide Level 29.9 MEQ/L Anion Gap 7 MEQ/L Blood Urea Nitrogen 15 MG/DL Creatinine 0.84 MG/DL Estimat Glomerular Filtration 92 ML/MIN Rate Random Glucose 101 MG/DL Calcium Level 8.6 MG/DL Microbiology Microbiology 12/09/16 Urine Culture - Preliminary, Resulted No growth. Physical Exam General General Appearance: Well Developed, Well Nourished, No Acute Distress, Comfortable Eyes Eye Exam: Pupils Equal, Pupils Reactive Ears & Nose Ears & Nose Exam: Nasal Mucosa [place] Throat Throat Exam: Oral Mucosa [place] & Moist Neck Neck Exam: Neck Supple, Trachea Midline Pulmonary Resp Exam: Breath Sounds Equal Cardiology CV Exam: Regular, Good Perfusion, Tachycardia Gastrointestinal/Abdomen GI Exam: Soft, Non-Tender, Bowel Sounds Present, Non-Distended Genitourinary Exam: Clear Urine Musculoskeletal MS Exam: Joints Intact Integumentary Skin Exam: Warm, Dry Extremeties Extremities Exam: No Edema, Pedal Pulses Palpable Neurologic Neuro Exam: Moving All Extremities, No Focal Deficits Psychiatric Psych Exam: Appropriate Responses VTE Prophylaxis VTE Prophylaxis Device: SCDs PUD Prophylasis PUD Prophylaxis: Protonix Assessment/Plan Problem List: (1) Alcohol withdrawal seizure (2) GRETCHEN (acute kidney injury) (3) Hyperammonemia (4) Hypertensive urgency (5) Seizure (6) Hypokalemia (7) Alcohol abuse Assessment/Plan 65-year-old male patient with known history of alcohol abuse and prior alcohol withdrawal seizures. Presented to the emergency room with recurrent seizures, apparently he had had 3 drinks the night before. Alcohol level was 18. Appreciate Neurology input EEG done awaiting reports -Brain MRI neg -Continue with Keppra Seizure precautions Neuro checks every 4 hours Continuous cardiac telemetry monitoring -Continue folic acid, thiamine and multivitamin -CIWA protocol -nowon Precedex gtt appreciate Dr Porter's input -NPO except meds, dobhoff placement -leucocytosis resolved Hypertensive urgency-off cardene drip now BP high resume home labetalol and Clonidine -Continue PRN Hydralazine Acute kidney injury, hyponatremia, hypokalemia renal function improved -Continue with IV fluids, change to D5NS, replace potassium monitor labs in am Hyperammonemia Elevated AST -Ammonia and AST now normal SCDs for DVT prophylaxis Protonix for GI prophylaxis Labs in am D/W RN Problem Qualifiers (1) Alcohol withdrawal seizure: Qualified Code: F10.239 - Alcohol withdrawal seizure, with unspecified complication Elsy Avitia MD Dec 10, 2016 14:46
[2016-12-10] MEDS: PANTOPRAZOLE SODIUM 40 MG VIAL IV PUSH SCH (17:19)
[2016-12-10] MEDS: HALOPERIDOL LACTATE 5 MG/ML AMP IV PUSH PRN (17:20)
[2016-12-10] MEDS: ENOXAPARIN SODIUM 40 MG/0.4 ML SYRINGE SQ SCH (17:20)
[2016-12-10] MEDS: LABETALOL HCL 100 MG/20 ML VIAL IV PUSH PRN (18:20)
--- NOTE | 2016-12-10 19:14 | RADRPT ---
EXAM DATE/TIME: 12/10/2016 18:32 [facility] COMPARISON: No previous studies available for comparison. INDICATIONS : Dobb fabian placement. MEDICAL HISTORY : Congestive heart failure. Hypertension. Seizures. SURGICAL HISTORY : None. ENCOUNTER: Initial ACUITY: 1 day PAIN SCORE: Non-responsive. LOCATION: Abdomen. FINDINGS: A feeding tube is not identified. Patchy parenchymal opacities are noted in the lungs, primarily on t he right area visualized intestinal gas pattern is nonspecific. CONCLUSION: Feeding tube is not seen Cisco Severino MD on December 10, 2016 at 19:12 Board Certified Radiologist. This report was verified electronically.
[2016-12-10] MEDS: MULTIVITAMIN INJ 10 ML, FOLIC ACID INJ 1 MG in SODIUM CHLORID 0.9% 500 ML INJ 500 ML IV SCH (20:08)
--- NOTE | 2016-12-10 21:04 | RADRPT ---
EXAM DATE/TIME: 12/10/2016 20:16 [facility] COMPARISON: No previous studies available for comparison. INDICATIONS : Evaluate dobbhoff placement MEDICAL HISTORY : Congestive heart failure. Hypertension. Seizures. SURGICAL HISTORY : None. ENCOUNTER: Subsequent ACUITY: 1 day PAIN SCORE: Non-responsive. LOCATION: Bilateral Abdomen FINDINGS: A weighted feeding tube coils in the stomach. Intestinal gas pattern is nonspecific and benign. Infil trate in the lung bases. CONCLUSION: Feeding tube in the stomach Cisco Severino MD on December 10, 2016 at 21:01 Board Certified Radiologist. This report was verified electronically.
[2016-12-11] VITALS (25 sets, daily range): BP systolic 139–210; BP diastolic 67–94; PULSE 69–99; RESP 0–26; TEMP 99–99.8; O2SAT 91–96
[2016-12-11] MEDS: LORazepam 2 MG/ML VIAL IV PUSH PRN ×3 (00:17→13:00)
[2016-12-11] MEDS: DEXMEDETOMIDINE INJ 400 MCG in SODIUM CHLORIDE 0.9% INJ 100 ML IV SCH (00:17)
[2016-12-11] MEDS: CHLORHEXIDINE GLUCONATE 2 % 1 PACK (2 CLOTHS)(taper/protocol) TOPICAL SCH ×2 (00:18→21:57)
[2016-12-11] MEDS: hydrALAZINE HCL 20 MG/ML VIAL IV PUSH PRN ×2 (00:35→10:30)
[2016-12-11] MEDS: DEXT 5%-NACL 0.9% 1000 ML INJ 1,000 ML IV SCH ×2 (02:00→20:44)
[2016-12-11 07:09] LABS: AUTOMATED NEUTROPHIL # 4.2 TH/MM3 (1.8-7.7); BASOPHIL % 0.2 % (0.0-2.0); EOSINOPHIL # 0.1 TH/MM3 (0-0.4); EOSINOPHIL % 2.2 % (0.0-4.0); HEMO FLAGS DIFF FINAL; LYMPH % 11.2 % (9.0-44.0); LYMPHOCYTE # 0.6 TH/MM3 (1.0-4.8); MEAN CORPUSCULAR HEMOGLOBIN 35.8 PG (27.0-34.0); MEAN CORPUSCULAR HGB CONC 35.4 % (32.0-36.0); MONO % 11.2 % (0.0-8.0); NEUT % 75.2 % (16.0-70.0); PLATELET COUNT 130 TH/MM3 (150-450); RED BLOOD COUNT 3.27 MIL/MM3 (4.50-5.90); RED CELL DISTRIBUTION WIDTH 14.6 % (11.6-17.2); WHITE BLOOD COUNT 5.6 TH/MM3 (4.0-11.0)
[2016-12-11 07:46] LABS: BICARBONATE 26.9 MEQ/L (21.0-32.0)
[2016-12-11 07:50] LABS: POTASSIUM 2.9 MEQ/L (3.5-5.1)
--- NOTE | 2016-12-11 08:58 | HHI.PR ---
Review/Management Diagnosis/Plan: (1) Alcohol withdrawal seizure Plan: possible etoh withdrawal/low mag eeg x 2- no sz activity in past eeg this admission- rt hemisphere focus recs keppra 750 bid on librium and haldol prn repeat eeg no driving/swimming/climbing heights x 6 months of being spell/sz free ok for 5th floor with tele Subjective Subjective Comments agitated yesterday- suspected dt's No headache No chest pain No dyspnea Active Medications Current Medications Medications (Trade) Dose Ordered Sig/Ruthann Route Start Time Stop Time Status Last Admin (NS Flush) 2 ml UNSCH PRN IV FLUSH 12/07/16 17:45 12/09/16 02:01 (NS Flush) 2 ml BID IV FLUSH 12/07/16 21:00 12/10/16 20:53 (Zofran Inj) 4 mg Q6H PRN IVP 12/07/16 17:45 12/08/16 09:34 (Narcan Inj) 0.4 mg UNSCH PRN IV 12/07/16 17:45 (Luz Elena-Colace) 1 tab BID PO 12/07/16 21:00 12/10/16 21:16 (Milk Of Magnesia Liq) 30 ml Q12H PRN PO 12/07/16 17:45 (Senokot) 17.2 mg Q12H PRN PO 12/07/16 17:45 (Dulcolax Supp) 10 mg DAILY PRN RECTAL 12/07/16 17:45 (Lactulose Liq) 30 ml DAILY PRN PO 12/07/16 17:45 (Ativan Inj) 1 mg Q2H PRN IV PUSH 12/07/16 17:45 (Romazicon Inj) 0.2 mg Q1M PRN IV PUSH 12/07/16 18:00 (Ativan) 1 mg Q4H PRN PO 12/07/16 18:00 (Ativan Inj) 1 mg Q4H PRN IV PUSH 12/07/16 18:00 12/11/16 04:12 (Ativan) 2 mg Q2H PRN PO 12/07/16 18:00 (Ativan Inj) 2 mg Q2H PRN IV PUSH 12/07/16 18:00 12/10/16 14:40 (Ativan Inj) 2 mg Q1H PRN IV PUSH 12/07/16 18:00 12/10/16 21:08 Lorazepam 2 mg 2 mg Q15M PRN IV PUSH 12/07/16 18:00 12/10/16 18:42 (Mvi-12 Inj/ Folvite Inj/NS 500 ml Inj) 510.2 ml @ 125 mls/hr Q24H IV 12/07/16 20:00 12/12/16 19:59 12/10/16 20:08 (Vitamin B1) 100 mg DAILY PO 12/10/16 09:00 (Protonix Inj) 40 mg Q24H IV PUSH 12/08/16 18:00 12/10/16 17:19 (Apresoline Inj) 20 mg Q4H PRN IV PUSH 12/07/16 19:30 12/11/16 00:35 Miscellaneous Information Patient in critical care unit? Ass... [id number] .XX 12/07/16 21:30 (Chlorhexidine 2% Cloth) 3 pack DAILY@04 TOPICAL 12/08/16 04:00 12/12/16 04:01 12/11/16 00:18 (Chlorhexidine 2% Cloth) 3 pack UNSCH PRN TOPICAL 12/07/16 21:30 12/12/16 21:26 (Tums Chew) 500 mg Q2H PRN CHEW 12/08/16 15:00 12/08/16 17:42 (Ecotrin Ec) 81 mg DAILY PO 12/09/16 09:00 12/09/16 07:19 Levetriacetam 500 mg 500 mg Q12HR PO 12/08/16 21:00 Hold 12/09/16 07:19 (D5W-NS 1000 ml Inj) 1,000 ml @ 50 mls/hr Q20H IV 12/09/16 10:00 12/10/16 04:32 (Lipitor) 40 mg DAILY PO 12/09/16 10:15 12/09/16 10:40 (Catapres) 0.2 mg BID PO 12/09/16 10:15 12/10/16 21:16 (Trandate) 200 mg BID PO 12/09/16 21:00 12/10/16 21:16 (Lovenox Inj) 40 mg Q24H SQ 12/09/16 18:00 12/10/16 17:20 (Librium) 20 mg BID PO 12/09/16 21:00 12/10/16 21:16 (Trandate Inj) 20 mg Q2HR PRN IV PUSH 12/09/16 17:15 12/10/16 18:20 Haloperidol Lactate 5 mg 5 mg Q4H PRN IV PUSH 12/09/16 17:30 12/10/16 17:20 Levetriacetam 500 mg/Sodium Chloride 105 ml @ 420 mls/hr Q12HR IV 12/09/16 21:45 12/10/16 20:52 (Precedex Inj/NS Inj) 104 ml @ 0 mls/hr TITRATE IV 12/10/16 15:00 12/11/16 00:17 Allergies Allergies Coded Allergies Penicillin (Verified Allergy, Mild, PASS OUT, 12/07/16) Review of Systems All other ROS: ROS reviewed as documented in chart Exam I&O / VS 12/10/16 12/10/16 12/11/16 15:00 23:00 07:00 Intake Total 623 ml 849 ml 674 ml Output Total 950 ml 400 ml 250 ml Balance -327 ml 449 ml 424 ml IV Total 623 ml 789 ml 614 ml Other 60 ml 60 ml Output Urine Total 950 ml 400 ml 250 ml # Bowel Movements 0 0 0 Vital Signs Date Time Temp Pulse Resp B/P Pulse Ox O2 Delivery O2 Flow Rate FiO2 12/11/16 06:00 71 12/11/16 04:00 72 12/11/16 04:00 99.1 72 20 139/76 95 12/11/16 02:00 77 12/11/16 00:00 99.8 80 21 149/78 95 12/11/16 00:00 80 12/10/16 22:00 84 12/10/16 20:00 99.0 95 22 175/85 96 12/10/16 20:00 95 12/10/16 19:44 95 Venturi Mask 40 12/10/16 19:00 96 Venturi Mask 6.00 40 12/10/16 18:00 126 12/10/16 16:00 69 12/10/16 16:00 98.0 69 23 188/90 96 12/10/16 14:00 68 12/10/16 12:00 71 12/10/16 12:00 97.1 70 20 172/81 94 12/10/16 10:00 60 General: No acute distress Eye: EOMI Respiratory: Non-labored respirations Musculoskeletal: ROM Neurologic: Alert, Normal sensory, Normal motor, CN II-XII intact, Normal DTR's Psychiatric: Cooperative Exam Comments ng tube in place, follows, ox to self, gabriel to gravity but has restraints in ue Objective Micro and Labs Laboratory Tests Test 12/11/16 04:41 White Blood Count 5.6 Red Blood Count 3.27 Hemoglobin 11.7 Hematocrit 33.0 Mean Corpuscular Volume 101.0 Mean Corpuscular Hemoglobin 35.8 Mean Corpuscular Hemoglobin 35.4 Concent Red Cell Distribution Width 14.6 Platelet Count 130 Mean Platelet Volume 10.0 Neutrophils (%) (Auto) 75.2 Lymphocytes (%) (Auto) 11.2 Monocytes (%) (Auto) 11.2 Eosinophils (%) (Auto) 2.2 Basophils (%) (Auto) 0.2 Neutrophils # (Auto) 4.2 Lymphocytes # (Auto) 0.6 Monocytes # (Auto) 0.6 Eosinophils # (Auto) 0.1 Basophils # (Auto) 0.0 CBC Comment DIFF FINAL Differential Comment Sodium Level 142 Potassium Level 2.9 Chloride Level 106 Carbon Dioxide Level 26.9 Anion Gap 9 Blood Urea Nitrogen 12 Creatinine 0.69 Estimat Glomerular Filtration 116 Rate Random Glucose 92 Calcium Level 8.0 Date/Time Procedure Status Source Growth 12/09/16 18:30 Urine Culture - Preliminary Resulted Urine Catheterized Urine No growth. Problem Qualifiers (1) Alcohol withdrawal seizure: Qualified Code: F10.239 - Alcohol withdrawal seizure, with unspecified complication Main Raman MD Dec 11, 2016 08:58
[2016-12-11] MEDS: LABETALOL HCL 200 MG TAB PO SCH ×2 (09:00→20:44)
[2016-12-11] MEDS ORDERED: POTASSIUM CHLOR 20 MEQ PREMIX 100 ML ONE (09:00)
[2016-12-11] MEDS: THIAMINE HCL 100 MG TAB PO SCH (09:00)
[2016-12-11] MEDS: DOCUSATE SODIUM 50 MG/SENNA 8.6 MG TAB PO SCH ×2 (09:00→20:43)
--- NOTE | 2016-12-11 09:18 | PD.CARD.PN ---
Subjective Subjective Remarks asleep, restrained Objective Vital Signs / I&O Vital Signs Date Time Temp Pulse Resp B/P Pulse Ox O2 Delivery O2 Flow Rate FiO2 12/11/16 06:00 71 12/11/16 04:00 72 12/11/16 04:00 99.1 72 20 139/76 95 12/11/16 02:00 77 12/11/16 00:00 99.8 80 21 149/78 95 12/11/16 00:00 80 12/10/16 22:00 84 12/10/16 20:00 99.0 95 22 175/85 96 12/10/16 20:00 95 12/10/16 19:44 95 Venturi Mask 40 12/10/16 19:00 96 Venturi Mask 6.00 40 12/10/16 18:00 126 12/10/16 16:00 69 12/10/16 16:00 98.0 69 23 188/90 96 12/10/16 14:00 68 12/10/16 12:00 71 12/10/16 12:00 97.1 70 20 172/81 94 12/10/16 10:00 60 I/O 12/10/16 12/10/16 12/10/16 12/11/16 12/11/16 12/11/16 07:00 15:00 23:00 07:00 15:00 23:00 Intake Total 1166 ml 623 ml 849 ml 674 ml Output Total 650 ml 950 ml 400 ml 250 ml Balance 516 ml -327 ml 449 ml 424 ml IV Total 1166 ml 623 ml 789 ml 614 ml Other 60 ml 60 ml Output Urine Total 650 ml 950 ml 400 ml 250 ml # Bowel Movements 0 0 0 0 Physical Exam GENERAL: SKIN: Warm and dry. HEAD: Normocephalic. EYES: No scleral icterus. No injection or drainage. NECK: Supple, trachea midline. No JVD or lymphadenopathy. CARDIOVASCULAR: Regular rate and rhythm without murmurs, gallops, or rubs. RESPIRATORY: Breath sounds equal bilaterally. No accessory muscle use. GASTROINTESTINAL: Abdomen soft, non-tender, nondistended. MUSCULOSKELETAL: No cyanosis, or edema. BACK: Nontender without obvious deformity. No CVA tenderness. Laboratory Laboratory Tests Test 12/11/16 04:41 White Blood Count 5.6 TH/MM3 Red Blood Count 3.27 MIL/MM3 Hemoglobin 11.7 GM/DL Hematocrit 33.0 % Mean Corpuscular Volume 101.0 FL Mean Corpuscular Hemoglobin 35.8 PG Mean Corpuscular Hemoglobin 35.4 % Concent Red Cell Distribution Width 14.6 % Platelet Count 130 TH/MM3 Mean Platelet Volume 10.0 FL Neutrophils (%) (Auto) 75.2 % Lymphocytes (%) (Auto) 11.2 % Monocytes (%) (Auto) 11.2 % Eosinophils (%) (Auto) 2.2 % Basophils (%) (Auto) 0.2 % Neutrophils # (Auto) 4.2 TH/MM3 Lymphocytes # (Auto) 0.6 TH/MM3 Monocytes # (Auto) 0.6 TH/MM3 Eosinophils # (Auto) 0.1 TH/MM3 Basophils # (Auto) 0.0 TH/MM3 CBC Comment DIFF FINAL Differential Comment Sodium Level 142 MEQ/L Potassium Level 2.9 MEQ/L Chloride Level 106 MEQ/L Carbon Dioxide Level 26.9 MEQ/L Anion Gap 9 MEQ/L Blood Urea Nitrogen 12 MG/DL Creatinine 0.69 MG/DL Estimat Glomerular Filtration 116 ML/MIN Rate Random Glucose 92 MG/DL Calcium Level 8.0 MG/DL Assessment and Plan Problem List: (1) Seizure (2) Alcohol withdrawal seizure (3) Hypertensive urgency (4) GRETCHEN (acute kidney injury) (5) Alcohol abuse Assessment and Plan 1.) Troponon elevation - suspect secondary to seizure, rec dc tobacco, bp improved on labetolol 200 mg bid , cont aspirin 81 mg qd, lipitor 20 mg hs Problem Qualifiers (1) Alcohol withdrawal seizure: Qualified Code: F10.239 - Alcohol withdrawal seizure, with unspecified complication Seferino Raphael MD Dec 11, 2016 09:18
[2016-12-11] MEDS: ASPIRIN EC 81 MG TABEC PO SCH (09:42)
[2016-12-11] MEDS: ATORVASTATIN 40 MG TAB PO SCH (09:42)
[2016-12-11] MEDS: cloNIDine HCL 0.2 MG TAB PO SCH ×2 (09:42→20:43)
[2016-12-11] MEDS: SODIUM CHLORIDE 0.9% FLUSH 10 ML FLUSH IV FLUSH SCH ×2 (09:43→20:43)
[2016-12-11] MEDS: levETIRAcetam INJ 500 MG in SODIUM CHLORIDE 0.9% INJ 100 ML IV SCH ×2 (09:43→20:43)
[2016-12-11] MEDS: LABETALOL HCL 100 MG/20 ML VIAL IV PUSH PRN (10:20)
--- NOTE | 2016-12-11 14:15 | HHI.CCPN ---
Subjective Remarks/Hospital Course 12/09: Patient is a 65 year old male with past medical history of heavy alcohol consumption and dependence. Apparently he had been sober for some time. He has had alcohol withdrawal seizures in the past every time he quits and has required hospital admissions. According to the girlfriend who is providing most of the history, they had gone to [employer] to have lunch and she noted that he started sweating and was kind of just staring at her not focusing. States that she had to prompt him to stand up and leave and he was slow to respond. She insisted on driving and on the way home he had a seizure. She immediately brought him to the hospital for evaluation. By the time he arrived in the emergency room he was no longer seizing and was reportedly postictal. Significant other indicated that she was not aware that the patient was drinking , his blood alcohol level was 18. Patient finally started waking up and was confronted by the ER physician and he finally admitted to having 3 drinks last evening in 3 drinks the night before. Laboratory workup was completed, magnesium was 1.5. Ammonia was elevated at 91. Troponin was negative. Toxicology was negative. He was noted hypertensive and required hydralazine 2 , Labetalol, and Clonidine. He complained of indigestion and received a GI cocktail. She was initiated on a Cardene drip for hypertension initially .While he was been evaluated by hospitalist, patient had another seizure. He received Ativan 1 mg and was loaded with Keppra. According to the significant other, she didn't know that he had started drinking. She denies any illegal drug use. Patient was admitted to the ICU and started on alcohol withdrawal protocol. Patient was evaluated by neurology for seizures and put him on Keppra and felt these were alcohol withdrawal seizures. He was also evaluated by cardiology Dr. Raphael for borderline troponin which was felt to be secondary to the seizure. She developed worsening agitation and alcohol withdrawal on 12/09 and received 16 mg of Ativan since this morning. Critical care medicine was consulted by hospitalist service to assist with management for alcohol withdrawal. I evaluated the patient intermittently on being notified. At that time he was drowsy though arousable in restraints for bilateral upper extremities. He was extremely delirious confused and disoriented and was having some tremors involving his upper extremities. He had just received additional Ativan 2 mg IV ordered by me for agitation. History was obtained by reviewing records and discussion with nursing staff. 12/10: Remains on Precedex for agitation. Resting in bed comfortably currently. Drowsy though arousable. Disoriented, not following commands. 12/11: On and off Precedex for agitation. Drowsy, arousable, disoriented. EEG ordered this morning by Dr. Raman. Objective Vital Signs Date Time Temp Pulse Resp B/P Pulse Ox O2 Delivery O2 Flow Rate FiO2 12/11/16 10:30 72 0 207/94 96 12/11/16 08:00 99.0 12/11/16 07:00 Nasal Cannula 4.00 12/10/16 19:44 40 Intake and Output 12/10/16 12/10/16 12/11/16 08:00 16:00 00:00 Intake Total 1166 ml 623 ml 849 ml Output Total 650 ml 950 ml 400 ml Balance 516 ml -327 ml 449 ml Result Diagram: 12/11/16 0441 12/11/16 0441 Other Results Microbiology Date/Time Procedure Status Source Growth 12/09/16 18:30 Urine Culture - Final Complete Urine Catheterized Urine 10-50,000 CFU/ML MIXED GRAM POSITIVE ... Imaging Laboratory Tests Test 12/08/16 12/09/16 12/09/16 12/09/16 18:55 00:12 04:08 08:47 Sodium Level 134 MEQ/L 134 MEQ/L 130 MEQ/L Potassium Level 3.2 MEQ/L 3.3 MEQ/L 3.1 MEQ/L Chloride Level 94 MEQ/L 96 MEQ/L 89 MEQ/L Carbon Dioxide Level 34.2 MEQ/L 31.1 MEQ/L 34.7 MEQ/L Anion Gap 6 MEQ/L 7 MEQ/L 6 MEQ/L Blood Urea Nitrogen 13 MG/DL 12 MG/DL 11 MG/DL Creatinine 0.99 MG/DL 0.80 MG/DL 0.86 MG/DL Estimat Glomerular Filtration 76 ML/MIN 98 ML/MIN 90 ML/MIN Rate Random Glucose 129 MG/DL 125 MG/DL 117 MG/DL Calcium Level 8.9 MG/DL 8.4 MG/DL 9.2 MG/DL Troponin I 0.05 NG/ML 0.04 NG/ML 0.03 NG/ML Magnesium Level 1.6 MG/DL White Blood Count 14.7 TH/MM3 Red Blood Count 3.77 MIL/MM3 Hemoglobin 13.3 GM/DL Hematocrit 37.8 % Mean Corpuscular Volume 100.3 FL Mean Corpuscular Hemoglobin 35.2 PG Mean Corpuscular Hemoglobin 35.1 % Concent Red Cell Distribution Width 14.6 % Platelet Count 159 TH/MM3 Mean Platelet Volume 9.5 FL Neutrophils (%) (Auto) 89.1 % Lymphocytes (%) (Auto) 6.0 % Monocytes (%) (Auto) 4.6 % Eosinophils (%) (Auto) 0.0 % Basophils (%) (Auto) 0.3 % Neutrophils # (Auto) 13.1 TH/MM3 Lymphocytes # (Auto) 0.9 TH/MM3 Monocytes # (Auto) 0.7 TH/MM3 Eosinophils # (Auto) 0.0 TH/MM3 Basophils # (Auto) 0.0 TH/MM3 CBC Comment AUTO DIFF Differential Comment AUTO DIFF CONFIRMED Test 12/09/16 12:25 Troponin I 0.04 NG/ML Objective Remarks HEENT/Neuro: No pallor or icterus, tongue moist, JOHNATHAN, drowsy but easily arousable, disoriented,. Speech slurred , nonfocal grossly, moving all 4 extremities. Currently in bilateral upper extremity restraints for agitation Neck: No JVD Chest/pulmonary: CTA bilaterally Cardiovascular: S1-S2 regular no gallop or murmur GI/abdomen: Soft, nontender, bowel sounds present Extremities: Warm bilaterally, no edema A/P Assessment and Plan 65-year-old male with: Severe alcohol withdrawal/delirium tremens Alcohol withdrawal seizure GRETCHEN Hypertensive urgency Hypokalemia Plan: Neuro: Continue Ativan per alcohol withdrawal protocol. Continue thiamine folic acid MVI. Added Librium 20 mg by mouth twice a day started 12/10 after dobhoff placed. Precedex gtt. for control of alcohol withdrawal. Haldol when necessary. Continue neuro checks. On Keppra per neurology. Neuro follow-up. Cardiovascular: IV hydration, 2-D echo with LVH, EF normal. On by mouth labetalol. Nicardipine drip for hypertension as needed. Labetalol 20 mg IV every 2 hourly when necessary for hypertension. Pulmonary: Supplemental O2 as needed. GI/liver: Dobhoff placed. Started tube feeds 12/11 Renal/: IV hydration, strict intake output, monitor and replete electrolytes, follow BUN/creatinine. ID: Watch for fever. Leukocytosis noted. No antibiotics at this time. We will get gibbs cultures for temperature spike Endocrine: Watch for hyperglycemia, SSI for glycemic control if needed Prophylaxis: PPI/SCDs/Lovenox Condition critical Time spent on critical care excluding procedures 30 min Tian Porter MD Dec 11, 2016 14:15
--- NOTE | 2016-12-11 14:39 | HHI.PR ---
Subjective Interval History NG tube in place still confused, arousable off precedex gtt prn Ativan and librium BP high no family at bedside Vitals/Results Intake & Output 12/10/16 12/10/16 12/11/16 15:00 23:00 07:00 Intake Total 623 ml 849 ml 674 ml Output Total 950 ml 400 ml 250 ml Balance -327 ml 449 ml 424 ml IV Total 623 ml 789 ml 614 ml Other 60 ml 60 ml Output Urine Total 950 ml 400 ml 250 ml # Bowel Movements 0 0 0 Vital Signs Vital Signs Date Time Temp Pulse Resp B/P Pulse Ox O2 Delivery O2 Flow Rate FiO2 12/11/16 10:30 72 0 207/94 96 12/11/16 10:00 74 18 174/92 96 12/11/16 10:00 78 12/11/16 09:30 69 20 170/84 94 12/11/16 09:00 71 21 160/73 91 12/11/16 08:30 71 21 158/77 93 12/11/16 08:00 99.0 72 20 150/82 94 12/11/16 08:00 74 12/11/16 07:00 94 Nasal Cannula 4.00 12/11/16 07:00 92 Nasal Cannula 4.00 12/11/16 06:00 71 12/11/16 04:00 72 12/11/16 04:00 99.1 72 20 139/76 95 12/11/16 02:00 77 12/11/16 00:00 99.8 80 21 149/78 95 12/11/16 00:00 80 12/10/16 22:00 84 12/10/16 20:00 99.0 95 22 175/85 96 12/10/16 20:00 95 12/10/16 19:44 95 Venturi Mask 40 12/10/16 19:00 96 Venturi Mask 6.00 40 12/10/16 18:00 126 12/10/16 16:00 69 12/10/16 16:00 98.0 69 23 188/90 96 CBC/BMP: 12/11/16 0441 12/11/16 0441 Lab Results Laboratory Tests Test 12/11/16 04:41 White Blood Count 5.6 TH/MM3 Red Blood Count 3.27 MIL/MM3 Hemoglobin 11.7 GM/DL Hematocrit 33.0 % Mean Corpuscular Volume 101.0 FL Mean Corpuscular Hemoglobin 35.8 PG Mean Corpuscular Hemoglobin 35.4 % Concent Red Cell Distribution Width 14.6 % Platelet Count 130 TH/MM3 Mean Platelet Volume 10.0 FL Neutrophils (%) (Auto) 75.2 % Lymphocytes (%) (Auto) 11.2 % Monocytes (%) (Auto) 11.2 % Eosinophils (%) (Auto) 2.2 % Basophils (%) (Auto) 0.2 % Neutrophils # (Auto) 4.2 TH/MM3 Lymphocytes # (Auto) 0.6 TH/MM3 Monocytes # (Auto) 0.6 TH/MM3 Eosinophils # (Auto) 0.1 TH/MM3 Basophils # (Auto) 0.0 TH/MM3 CBC Comment DIFF FINAL Differential Comment Sodium Level 142 MEQ/L Potassium Level 2.9 MEQ/L Chloride Level 106 MEQ/L Carbon Dioxide Level 26.9 MEQ/L Anion Gap 9 MEQ/L Blood Urea Nitrogen 12 MG/DL Creatinine 0.69 MG/DL Estimat Glomerular Filtration 116 ML/MIN Rate Random Glucose 92 MG/DL Calcium Level 8.0 MG/DL Physical Exam General General Appearance: Well Developed, Well Nourished, No Acute Distress, Comfortable Eyes Eye Exam: Pupils Equal, Pupils Reactive Ears & Nose Ears & Nose Exam: Nasal Mucosa [place] Throat Throat Exam: Oral Mucosa [place] & Moist Neck Neck Exam: Neck Supple, Trachea Midline Pulmonary Resp Exam: Breath Sounds Equal Cardiology CV Exam: Regular, Good Perfusion, Tachycardia Gastrointestinal/Abdomen GI Exam: Soft, Non-Tender, Bowel Sounds Present, Non-Distended Genitourinary Exam: Clear Urine Musculoskeletal MS Exam: Joints Intact Integumentary Skin Exam: Warm, Dry Extremeties Extremities Exam: No Edema, Pedal Pulses Palpable Neurologic Neuro Exam: Moving All Extremities, No Focal Deficits Psychiatric Psych Exam: Appropriate Responses VTE Prophylaxis VTE Prophylaxis Device: SCDs PUD Prophylasis PUD Prophylaxis: Protonix Assessment/Plan Problem List: (1) Alcohol withdrawal seizure (2) GRETCHEN (acute kidney injury) (3) Hyperammonemia (4) Hypertensive urgency (5) Seizure (6) Hypokalemia (7) Alcohol abuse Assessment/Plan 65-year-old male patient with known history of alcohol abuse and prior alcohol withdrawal seizures. Presented to the emergency room with recurrent seizures, apparently he had had 3 drinks the night before. Alcohol level was 18. Appreciate Neurology input EEG done, repeat EEG ordered -Brain MRI neg -Continue with Keppra Seizure precautions Neuro checks every 4 hours Continuous cardiac telemetry monitoring -Continue folic acid, thiamine and multivitamin -CIWA protocol -now off Precedex gtt,appreciate Dr Porter's input -NPO except meds, dobhoff placement prn Librium and Ativan -leucocytosis resolved Hypertensive urgency-off cardene drip now BP high resume home labetalol and Clonidine -Continue PRN Hydralazine Acute kidney injury, hyponatremia, hypokalemia renal function improved -Continue with IV fluids, change to D5NS, replace potassium monitor labs in am Hyperammonemia Elevated AST -Ammonia and AST now normal SCDs for DVT prophylaxis Protonix for GI prophylaxis Labs in am Problem Qualifiers (1) Alcohol withdrawal seizure: Qualified Code: F10.239 - Alcohol withdrawal seizure, with unspecified complication Elsy Avitia MD Dec 11, 2016 14:39
[2016-12-11] MEDS ORDERED: POTASSIUM CHLORIDE 20 MEQ PWD PACKET DOBHOFF ONE (17:15)
--- NOTE | 2016-12-11 17:54 | MG ---
cc: RUPERT MARR M.D. Lab No: [id number] Date: 12/11/2016 Age: Sex: M Race: DESCRIPTION The background rhythm reveals mild slowing predominantly in the theta range at roughly 6 Hz amplitude 10-20 microvolts. There are some muscle artifact seen as well. No lateralizing features identified. No epileptiform features are seen. Later in the tracing there does appear to be an alpha rhythm present. Photic stimulation results of fairly well-developed driving response. INTERPRETATION Mildly abnormal study is mild slowing in the theta range consistent with a [id number] encephalopathy. MD LEONARDO Melton/amisha /5:43 PM /5:47 PM
[2016-12-11] MEDS: PANTOPRAZOLE SODIUM 40 MG VIAL IV PUSH SCH (18:00)
[2016-12-11] MEDS: ENOXAPARIN SODIUM 40 MG/0.4 ML SYRINGE SQ SCH (18:00)
[2016-12-11] MEDS: MULTIVITAMIN INJ 10 ML, FOLIC ACID INJ 1 MG in SODIUM CHLORID 0.9% 500 ML INJ 500 ML IV SCH (21:57)
[2016-12-12] VITALS (29 sets, daily range): BP systolic 149–220; BP diastolic 71–105; PULSE 66–99; RESP 19–34; TEMP 99–99.6; O2SAT 95–100
[2016-12-12] MEDS: LORazepam 2 MG/ML VIAL IV PUSH PRN ×7 (00:50→21:06)
[2016-12-12] MEDS: LABETALOL HCL 100 MG/20 ML VIAL IV PUSH PRN (02:11)
[2016-12-12] MEDS ORDERED: MAGNESIUM SULFATE INJ 2 GM in SODIUM CHLORIDE 0.9% INJ 96 ML IV PRN (07:45)
[2016-12-12] MEDS ORDERED: POTASSIUM CHLORIDE 25 MEQ EFFERVESCENT TAB PO PRN (07:45)
[2016-12-12] MEDS ORDERED: POTASSIUM CHLOR 40 MEQ PREMIX 100 ML IV PRN (07:45)
[2016-12-12] MEDS ORDERED: MAGNESIUM SULFATE INJ 4 GM in SODIUM CHLORIDE 0.9% INJ 92 ML IV PRN (07:45)
[2016-12-12] MEDS ORDERED: MAGNESIUM OXIDE 400 MG TAB PO PRN (07:45)
[2016-12-12] MEDS ORDERED: POTASSIUM PHOSPHATE MONOBASIC 500 MG TAB PO/TUBE PRN (07:45)
[2016-12-12] MEDS ORDERED: POTASSIUM PHOSPHATE INJ 30 MMOL in SODIUM CHLOR 0.9% 250 ML INJ 250 ML IV PRN (07:45)
[2016-12-12] MEDS ORDERED: POTASSIUM PHOSPHATE MONOBASIC 500 MG TAB PO PRN (07:45)
[2016-12-12] MEDS ORDERED: POTASSIUM CHLOR 20 MEQ PREMIX 100 ML IV PRN (07:45)
[2016-12-12] MEDS ORDERED: SODIUM PHOSPHATE INJ 30 MMOL in SODIUM CHLOR 0.9% 250 ML INJ 240 ML IV PRN (07:45)
--- NOTE | 2016-12-12 07:55 | HHI.CCPN ---
Subjective Remarks/Hospital Course 12/09: Patient is a 65 year old male with past medical history of heavy alcohol consumption and dependence. Apparently he had been sober for some time. He has had alcohol withdrawal seizures in the past every time he quits and has required hospital admissions. According to the girlfriend who is providing most of the history, they had gone to [employer] to have lunch and she noted that he started sweating and was kind of just staring at her not focusing. States that she had to prompt him to stand up and leave and he was slow to respond. She insisted on driving and on the way home he had a seizure. She immediately brought him to the hospital for evaluation. By the time he arrived in the emergency room he was no longer seizing and was reportedly postictal. Significant other indicated that she was not aware that the patient was drinking , his blood alcohol level was 18. Patient finally started waking up and was confronted by the ER physician and he finally admitted to having 3 drinks last evening in 3 drinks the night before. Laboratory workup was completed, magnesium was 1.5. Ammonia was elevated at 91. Troponin was negative. Toxicology was negative. He was noted hypertensive and required hydralazine 2 , Labetalol, and Clonidine. He complained of indigestion and received a GI cocktail. She was initiated on a Cardene drip for hypertension initially .While he was been evaluated by hospitalist, patient had another seizure. He received Ativan 1 mg and was loaded with Keppra. According to the significant other, she didn't know that he had started drinking. She denies any illegal drug use. Patient was admitted to the ICU and started on alcohol withdrawal protocol. Patient was evaluated by neurology for seizures and put him on Keppra and felt these were alcohol withdrawal seizures. He was also evaluated by cardiology Dr. aRphael for borderline troponin which was felt to be secondary to the seizure. She developed worsening agitation and alcohol withdrawal on 12/09 and received 16 mg of Ativan since this morning. Critical care medicine was consulted by hospitalist service to assist with management for alcohol withdrawal. I evaluated the patient intermittently on being notified. At that time he was drowsy though arousable in restraints for bilateral upper extremities. He was extremely delirious confused and disoriented and was having some tremors involving his upper extremities. He had just received additional Ativan 2 mg IV ordered by me for agitation. History was obtained by reviewing records and discussion with nursing staff. 12/10: Remains on Precedex for agitation. Resting in bed comfortably currently. Drowsy though arousable. Disoriented, not following commands. 12/11: On and off Precedex for agitation. Drowsy, arousable, disoriented. EEG ordered this morning by Dr. Raman. 12/12 Patient is awake on 4L oxygen with good sats. Off Precedex drip. EEG showed mild encephalopathy. Afebrile. Objective Vital Signs Date Time Temp Pulse Resp B/P Pulse Ox O2 Delivery O2 Flow Rate FiO2 12/12/16 06:00 85 12/12/16 04:00 99.6 22 160/71 96 12/11/16 20:54 Nasal Cannula 4.00 12/10/16 19:44 40 Intake and Output 12/11/16 12/11/16 12/12/16 08:00 16:00 00:00 Intake Total 674 ml 550 ml 914 ml Output Total 250 ml 700 ml 950 ml Balance 424 ml -150 ml -36 ml Result Diagram: 12/11/16 0441 12/11/16 0441 Imaging Last Impressions Abdomen X-Ray 12/10/16 2030 Signed Impressions: Service Date/Time: December 20:16 - CONCLUSION: Feeding tube in the stomach Cisco Severino MD Chest X-Ray 12/10/16 0500 Signed Impressions: Service Date/Time: December 03:47 - CONCLUSION: Dense infiltrate in the right lower lobe new from the previous study. Francis Norris MD Brain MRI 12/08/16 0000 Signed Impressions: Service Date/Time: Thursday, December 08, 2016 17:00 - CONCLUSION: 1. No acute intracranial abnormality. 2. Chronic small vessel ischemic change. Reji Estrella Jr., MD Head CT 12/07/16 0000 Signed Impressions: Service Date/Time: Wednesday, December 07, 2016 15:25 - CONCLUSION: 1. Redemonstration moderate periventricular ischemic white matter demyelination consistent with small vessel disease. 2. No acute intracranial abnormality. Marco Hyatt MD Objective Remarks GENERAL: Patient is 65 yo lying in be din NAD SKIN: Warm and dry. HEAD: Normocephalic. EYES: No scleral icterus. No injection or drainage. NECK: Supple, trachea midline. No JVD or lymphadenopathy. CARDIOVASCULAR: Regular rate and rhythm without murmurs, gallops, or rubs. RESPIRATORY: Breath sounds equal bilaterally. No accessory muscle use. GASTROINTESTINAL: Abdomen soft, non-tender, nondistended. MUSCULOSKELETAL: No cyanosis, or edema. Neuro: Awake. A/P Assessment and Plan 65-year-old male with: Severe alcohol withdrawal/delirium tremens Alcohol withdrawal seizure GRETCHEN Hypertensive urgency Hypokalemia Plan: Neuro: Continue Ativan per alcohol withdrawal protocol. Continue thiamine folic acid MVI. Librium 20 mg BID. On Keppra per neurology. Neuro is following. EEG 12/11: Mild encephalopathy. On Thiamine/Folic acid CV: Monitor HR and BP keep MAP>65mmHg. On ASA/Lipitor Continue with BP meds- on Labetalol 200mg Q12, increase clonidine 0.2 mg Q8 Echo showed EF 60%, mild LVH, no RWAM Pulm: Continue with oxygen keep sat >92% Bronchodilators. Check CXR GI/liver: Dobhoff placed. Started tube feeds 12/11- on Jevity 1.5@60ml/hr. Speech eval if patient passes swallow study will d/c NGT feeds and start PO diet. Renal/:Monitor renal function, I/O's, electrolytes replacement per protocol. On D5NS@50ml/hr ID: Monitor for signs of infections ( Fever, WBC) check sputum cx, UA with cx if indicated Endocrine: SSI for glycemic control if needed Prophylaxis: PPI/SCDs/Lovenox Will sign off. Level 3 Nathaniel Vuong MD Dec 12, 2016 07:55
[2016-12-12] MEDS: levETIRAcetam INJ 500 MG in SODIUM CHLORIDE 0.9% INJ 100 ML IV SCH ×2 (07:59→21:07)
[2016-12-12] MEDS: LABETALOL HCL 200 MG TAB PO SCH ×2 (08:00→21:06)
[2016-12-12] MEDS: DOCUSATE SODIUM 50 MG/SENNA 8.6 MG TAB PO SCH ×2 (08:00→21:06)
[2016-12-12] MEDS: ATORVASTATIN 40 MG TAB PO SCH (08:00)
[2016-12-12] MEDS: THIAMINE HCL 100 MG TAB PO SCH (08:00)
[2016-12-12] MEDS: ASPIRIN EC 81 MG TABEC PO SCH (08:01)
[2016-12-12] MEDS: SODIUM CHLORIDE 0.9% FLUSH 10 ML FLUSH IV FLUSH SCH ×2 (08:01→21:06)
[2016-12-12 08:47] LABS: BICARBONATE 25.3 MEQ/L (21.0-32.0); POTASSIUM 3.2 MEQ/L (3.5-5.1)
[2016-12-12 09:14] LABS: MAGNESIUM 1.7 MG/DL (1.5-2.5)
--- NOTE | 2016-12-12 09:24 | RADRPT ---
EXAM DATE/TIME: 12/12/2016 07:54 [facility] COMPARISON: CHEST SINGLE AP, December 10, 2016, 3:47. INDICATIONS : Shortness of breath. MEDICAL HISTORY : Congestive heart failure. Hypertension. Seizures. SURGICAL HISTORY : None. ENCOUNTER: Subsequent ACUITY: 1 day PAIN SCORE: 0/10 LOCATION: Bilateral chest FINDINGS: Minimal residual air space disease is seen in the right base. Left lung is clear. Heart and pulmona ry vascularity are normal. Portion of bony skeleton visualized is unremarkable. CONCLUSION: Interval improvement with less air space disease right base. Cb Ferrara MD FACR on December 12, 2016 at 9:15 Board Certified Radiologist. This report was verified electronically.
[2016-12-12 09:45] LABS: AUTOMATED NEUTROPHIL # 5.3 TH/MM3 (1.8-7.7); BASOPHIL % 0.2 % (0.0-2.0); EOSINOPHIL # 0.2 TH/MM3 (0-0.4); EOSINOPHIL % 2.5 % (0.0-4.0); HEMO FLAGS DIFF FINAL; LYMPH % 10.6 % (9.0-44.0); LYMPHOCYTE # 0.8 TH/MM3 (1.0-4.8); MEAN CELL VOLUME 100.6 FL (80.0-100.0); MEAN CORPUSCULAR HEMOGLOBIN 34.8 PG (27.0-34.0); MEAN CORPUSCULAR HGB CONC 34.6 % (32.0-36.0); MONO % 16.6 % (0.0-8.0); NEUT % 70.1 % (16.0-70.0); PLATELET COUNT 150 TH/MM3 (150-450); RED BLOOD COUNT 3.18 MIL/MM3 (4.50-5.90); RED CELL DISTRIBUTION WIDTH 14.6 % (11.6-17.2); WHITE BLOOD COUNT 7.6 TH/MM3 (4.0-11.0)
--- NOTE | 2016-12-12 10:06 | PD.CARD.PN ---
Subjective Subjective Remarks in 4 point restraints, awake, in nad Objective Vital Signs / I&O Vital Signs Date Time Temp Pulse Resp B/P Pulse Ox O2 Delivery O2 Flow Rate FiO2 12/12/16 08:07 96 Nasal Cannula 3.00 12/12/16 08:00 85 12/12/16 08:00 99.0 88 22 185/93 96 12/12/16 07:00 92 Nasal Cannula 4.00 12/12/16 06:00 85 12/12/16 04:00 86 12/12/16 04:00 99.6 86 22 160/71 96 12/12/16 02:00 84 12/12/16 00:00 85 12/12/16 00:00 99.6 85 20 161/78 95 12/11/16 22:00 80 12/11/16 20:54 93 Nasal Cannula 4.00 12/11/16 20:00 99.3 99 22 182/85 92 12/11/16 20:00 99 12/11/16 19:00 92 Nasal Cannula 4.00 12/11/16 18:00 75 12/11/16 16:00 71 12/11/16 16:00 74 25 150/72 92 12/11/16 15:30 99.2 75 20 147/74 92 12/11/16 15:00 74 25 150/72 92 12/11/16 14:30 77 21 143/67 92 12/11/16 14:00 82 26 177/81 93 12/11/16 14:00 74 12/11/16 13:30 75 20 210/94 96 12/11/16 13:00 73 21 188/91 96 12/11/16 12:30 72 19 183/89 96 12/11/16 12:07 72 21 182/90 95 12/11/16 12:00 99.5 73 20 202/92 96 12/11/16 10:30 72 0 207/94 96 I/O 12/11/16 12/11/16 12/11/16 12/12/16 12/12/16 12/12/16 07:00 15:00 23:00 07:00 15:00 23:00 Intake Total 674 ml 550 ml 914 ml 1312 ml Output Total 250 ml 700 ml 950 ml 850 ml Balance 424 ml -150 ml -36 ml 462 ml IV Total 614 ml 550 ml 770 ml 922 ml Tube Feeding 144 ml 390 ml Other 60 ml Output Urine Total 250 ml 700 ml 950 ml 850 ml # Bowel Movements 0 0 1 Physical Exam GENERAL: SKIN: Warm and dry. HEAD: Normocephalic. EYES: No scleral icterus. No injection or drainage. NECK: Supple, trachea midline. No JVD or lymphadenopathy. CARDIOVASCULAR: Regular rate and rhythm without murmurs, gallops, or rubs. RESPIRATORY: Breath sounds equal bilaterally. No accessory muscle use. GASTROINTESTINAL: Abdomen soft, non-tender, nondistended. MUSCULOSKELETAL: No cyanosis, or edema. BACK: Nontender without obvious deformity. No CVA tenderness. Laboratory Laboratory Tests Test 12/12/16 12/12/16 07:30 09:03 Sodium Level 144 MEQ/L Potassium Level 3.2 MEQ/L Chloride Level 108 MEQ/L Carbon Dioxide Level 25.3 MEQ/L Anion Gap 11 MEQ/L Blood Urea Nitrogen 13 MG/DL Creatinine 0.76 MG/DL Estimat Glomerular Filtration 104 ML/MIN Rate Random Glucose 129 MG/DL Calcium Level 8.8 MG/DL Phosphorus Level 1.1 MG/DL Magnesium Level 1.7 MG/DL White Blood Count 7.6 TH/MM3 Red Blood Count 3.18 MIL/MM3 Hemoglobin 11.1 GM/DL Hematocrit 32.0 % Mean Corpuscular Volume 100.6 FL Mean Corpuscular Hemoglobin 34.8 PG Mean Corpuscular Hemoglobin 34.6 % Concent Red Cell Distribution Width 14.6 % Platelet Count 150 TH/MM3 Mean Platelet Volume 9.9 FL Neutrophils (%) (Auto) 70.1 % Lymphocytes (%) (Auto) 10.6 % Monocytes (%) (Auto) 16.6 % Eosinophils (%) (Auto) 2.5 % Basophils (%) (Auto) 0.2 % Neutrophils # (Auto) 5.3 TH/MM3 Lymphocytes # (Auto) 0.8 TH/MM3 Monocytes # (Auto) 1.3 TH/MM3 Eosinophils # (Auto) 0.2 TH/MM3 Basophils # (Auto) 0.0 TH/MM3 CBC Comment DIFF FINAL Differential Comment Assessment and Plan Problem List: (1) Seizure (2) Alcohol withdrawal seizure (3) Hypertensive urgency (4) GRETCHEN (acute kidney injury) (5) Alcohol abuse Assessment and Plan 1.) Troponon elevation - suspect secondary to seizure, rec dc tobacco, bp improved on labetolol 200 mg bid , cont aspirin 81 mg qd, lipitor 20 mg hs Problem Qualifiers (1) Alcohol withdrawal seizure: Qualified Code: F10.239 - Alcohol withdrawal seizure, with unspecified complication Seferino Raphael MD Dec 12, 2016 10:06
[2016-12-12] MEDS: POTASSIUM CHLOR 40 MEQ PREMIX 100 ML IV PRN (10:17)
[2016-12-12] MEDS: cloNIDine HCL 0.2 MG TAB PO SCH ×2 (10:17→17:00)
--- NOTE | 2016-12-12 17:56 | HHI.PR ---
Subjective Subjective Remarks Still having bouts of pleasant confusion Trying to get out of bed 4 point soft restraints Mouth. Dry and thirsty, taking by mouth fluids without cough (Yeimi Villagran) Review of Systems Constitutional Constitutional: Weakness Constitutional Remarks 10 point ROS done positives noted (Yeimi Villagran) Pulmonary Respiratory: Shortness of Breath (none) (Yeimi Villagran) Musculoskeletal MS: Weakness, Stiffness (Yeimi Villagran) Neurologic Neurologic: Confused Neurologic Remarks Pleasant confusion (Yeimi Villagran) Psychiatric Psychiatric: Agitation (easily) (Yeimi Villagran) Vitals/Results Intake & Output 12/11/16 12/11/16 12/12/16 15:00 23:00 07:00 Intake Total 550 ml 914 ml 1312 ml Output Total 700 ml 950 ml 850 ml Balance -150 ml -36 ml 462 ml IV Total 550 ml 770 ml 922 ml Tube Feeding 144 ml 390 ml Output Urine Total 700 ml 950 ml 850 ml # Bowel Movements 0 1 Vital Signs Vital Signs Date Time Temp Pulse Resp B/P Pulse Ox O2 Delivery O2 Flow Rate FiO2 12/12/16 16:00 99 12/12/16 16:00 99.3 78 22 180/99 96 12/12/16 15:37 78 21 202/93 12/12/16 15:31 74 23 207/98 98 12/12/16 15:08 73 24 186/96 98 12/12/16 15:00 78 27 212/101 98 12/12/16 14:30 82 29 207/99 98 12/12/16 14:00 76 25 173/86 98 12/12/16 14:00 99 12/12/16 13:30 77 27 173/86 98 12/12/16 13:00 70 23 170/91 98 12/12/16 12:30 69 26 165/89 100 12/12/16 12:00 70 19 149/86 99 12/12/16 12:00 99.0 66 22 149/86 96 12/12/16 12:00 99 12/12/16 11:30 71 21 149/82 98 12/12/16 11:00 72 24 161/77 99 12/12/16 10:35 75 28 173/89 97 12/12/16 10:21 79 22 209/103 98 12/12/16 10:00 81 34 166/100 98 12/12/16 10:00 85 12/12/16 09:00 79 23 186/88 97 12/12/16 08:11 80 23 185/93 95 12/12/16 08:07 96 Nasal Cannula 3.00 12/12/16 08:05 82 27 200/98 96 12/12/16 08:00 85 12/12/16 08:00 81 24 95 12/12/16 08:00 99.0 88 22 185/93 96 12/12/16 07:00 92 Nasal Cannula 4.00 12/12/16 06:00 85 12/12/16 04:00 86 12/12/16 04:00 99.6 86 22 160/71 96 12/12/16 02:00 84 12/12/16 00:00 85 12/12/16 00:00 99.6 85 20 161/78 95 12/11/16 22:00 80 12/11/16 20:54 93 Nasal Cannula 4.00 12/11/16 20:00 99.3 99 22 182/85 92 12/11/16 20:00 99 12/11/16 19:00 92 Nasal Cannula 4.00 12/11/16 18:00 75 (Yeimi Villagran) CBC/BMP: 12/12/16 0903 12/12/16 0730 Lab Results Laboratory Tests Test 12/12/16 12/12/16 07:30 09:03 Sodium Level 144 MEQ/L Potassium Level 3.2 MEQ/L Chloride Level 108 MEQ/L Carbon Dioxide Level 25.3 MEQ/L Anion Gap 11 MEQ/L Blood Urea Nitrogen 13 MG/DL Creatinine 0.76 MG/DL Estimat Glomerular Filtration 104 ML/MIN Rate Random Glucose 129 MG/DL Calcium Level 8.8 MG/DL Phosphorus Level 1.1 MG/DL Magnesium Level 1.7 MG/DL White Blood Count 7.6 TH/MM3 Red Blood Count 3.18 MIL/MM3 Hemoglobin 11.1 GM/DL Hematocrit 32.0 % Mean Corpuscular Volume 100.6 FL Mean Corpuscular Hemoglobin 34.8 PG Mean Corpuscular Hemoglobin 34.6 % Concent Red Cell Distribution Width 14.6 % Platelet Count 150 TH/MM3 Mean Platelet Volume 9.9 FL Neutrophils (%) (Auto) 70.1 % Lymphocytes (%) (Auto) 10.6 % Monocytes (%) (Auto) 16.6 % Eosinophils (%) (Auto) 2.5 % Basophils (%) (Auto) 0.2 % Neutrophils # (Auto) 5.3 TH/MM3 Lymphocytes # (Auto) 0.8 TH/MM3 Monocytes # (Auto) 1.3 TH/MM3 Eosinophils # (Auto) 0.2 TH/MM3 Basophils # (Auto) 0.0 TH/MM3 CBC Comment DIFF FINAL Differential Comment Imaging Remarks Last Impressions Chest X-Ray 12/12/16 0000 Signed Impressions: Service Date/Time: Monday, December 12, 2016 07:54 - CONCLUSION: Interval improvement with less air space disease right base. Cb Ferrara MD FACR Abdomen X-Ray 12/10/16 2030 Signed Impressions: Service Date/Time: December 20:16 - CONCLUSION: Feeding tube in the stomach Cisco Severino MD Brain MRI 12/08/16 0000 Signed Impressions: Service Date/Time: Thursday, December 08, 2016 17:00 - CONCLUSION: 1. No acute intracranial abnormality. 2. Chronic small vessel ischemic change. Reji Estrella Jr., MD Head CT 12/07/16 0000 Signed Impressions: Service Date/Time: Wednesday, December 07, 2016 15:25 - CONCLUSION: 1. Redemonstration moderate periventricular ischemic white matter demyelination consistent with small vessel disease. 2. No acute intracranial abnormality. Marco Hyatt MD (Yeimi Villagran) Physical Exam General General Appearance: Well Developed, Well Nourished, No Acute Distress, Comfortable (Yeimi Villagran. GLOBAL COORDINATOR) Eyes Eye Exam: Pupils Equal, Pupils Reactive Eye Remarks PERRLA at 4mm (Yeimi Villagran GLOBAL COORDINATOR) Ears & Nose Ears & Nose Exam: Nasal Mucosa [place] (Yeimi Villagran. GLOBAL COORDINATOR) Throat Throat Exam: Oral Mucosa [place] & Moist (Yeimi Villagran M. GLOBAL COORDINATOR) Neck Neck Exam: Neck Supple, Trachea Midline (Yeimi Villagran GLOBAL COORDINATOR) Pulmonary Resp Exam: Breath Sounds Equal (Sparkle,Yeimi M. GLOBAL COORDINATOR) Cardiology CV Exam: Regular, Good Perfusion, Tachycardia ([place] M. GLOBAL COORDINATOR) Gastrointestinal/Abdomen GI Exam: Soft, Non-Tender, Bowel Sounds Present, Non-Distended ([place] M. GLOBAL COORDINATOR) Genitourinary Exam: Clear Urine ([place] M. GLOBAL COORDINATOR) Musculoskeletal MS Exam: Joints Intact (Spark[place]Yeimi M. GLOBAL COORDINATOR) Integumentary Skin Exam: Warm, Dry ([place] M. GLOBAL COORDINATOR) Extremeties Extremities Exam: No Edema, Pedal Pulses Palpable ([place] M. GLOBAL COORDINATOR) Neurologic Neuro Exam: Moving All Extremities, No Focal Deficits (SparkleYeimi M. GLOBAL COORDINATOR) Psychiatric Psych Exam: Appropriate Responses ([place]Yeimi M. GLOBAL COORDINATOR) VTE Prophylaxis VTE Prophylaxis Device: SCDs (Sparkle,Yeimi M. GLOBAL COORDINATOR) PUD Prophylasis PUD Prophylaxis: Protonix ([place] M. GLOBAL COORDINATOR) Assessment/Plan Problem List: (1) Alcohol withdrawal seizure (2) GRETCHEN (acute kidney injury) (3) Hyperammonemia (4) Hypertensive urgency (5) Seizure (6) Hypokalemia (7) Alcohol abuse Assessment/Plan 65-year-old male patient with known history of alcohol abuse and prior alcohol withdrawal seizures. Presented to the emergency room with recurrent seizures, apparently he had had 3 drinks the night before. Alcohol level was 18. Seizure activity Vital signs reviewed, sinus rhythm heart rate 80/per minute, afebrile Labs reviewed Appreciate Neurology input and consult, EEG Medical management with Keppra, folic acid thiamine and multivitamins Seizure precautions, continuous ECG monitoring Neuro checks every 4 hours, continues to have pleasant confusion and trying to get up -CIWA protocol now off Precedex gtt,appreciate Dr Porter's input prn Librium and Ativan Hypertensive urgency-off cardene drip now BP high resume home labetalol and Clonidine -Continue PRN Hydralazine Acute kidney injury, hyponatremia, hypokalemia renal function improved -Continue with IV fluids at 50 cc an hour, change to D5NS, Discharge planning, once patient is appropriate and medically stable, will be several days SCDs for DVT prophylaxis Protonix for GI prophylaxis Discussed with patient Discussed with nurse Discussed with Dr. Paz, seen on his behalf (Yeimi Villagran) Assessment/Plan pt is seen & examined d/w PT johan kaminski above cont current tx will f/u (Jorge Paz MD) Problem Qualifiers (1) Alcohol withdrawal seizure: Qualified Code: F10.239 - Alcohol withdrawal seizure, with unspecified complication Yeimi Villagran Dec 12, 2016 17:56 Jorge Paz MD Dec 12, 2016 18:29
[2016-12-12] MEDS: ENOXAPARIN SODIUM 40 MG/0.4 ML SYRINGE SQ SCH (18:00)
[2016-12-12] MEDS: PANTOPRAZOLE SODIUM 40 MG VIAL IV PUSH SCH (18:00)
[2016-12-12] MEDS ORDERED: ENALAPRILAT 1.25 MG/ML VIAL IV PUSH PRN (18:30)
[2016-12-12 23:34] LABS: POTASSIUM 3.1 MEQ/L (3.5-5.1)
[2016-12-13] VITALS (14 sets, daily range): BP systolic 154–180; BP diastolic 74–101; PULSE 62–76; RESP 17–28; TEMP 98.1–99; O2SAT 97–100
[2016-12-13] MEDS: cloNIDine HCL 0.2 MG TAB PO SCH ×3 (00:25→17:07)
[2016-12-13] MEDS: LORazepam 2 MG/ML VIAL IV PUSH PRN ×4 (00:25→07:20)
[2016-12-13] MEDS: POTASSIUM CHLOR 40 MEQ PREMIX 100 ML IV PRN ×2 (00:26→02:52)
[2016-12-13] MEDS: POTASSIUM CHLOR 20 MEQ PREMIX 100 ML IV PRN ×4 (00:27→19:58)
[2016-12-13] MEDS: LABETALOL HCL 100 MG/20 ML VIAL IV PUSH PRN ×3 (04:39→18:37)
[2016-12-13 06:32] LABS: AUTOMATED NEUTROPHIL # 5.4 TH/MM3 (1.8-7.7); BASOPHIL % 0.4 % (0.0-2.0); EOSINOPHIL # 0.3 TH/MM3 (0-0.4); HEMATOCRIT 32.2 % (39.0-51.0); HEMO FLAGS DIFF FINAL; LYMPH % 10.6 % (9.0-44.0); LYMPHOCYTE # 0.8 TH/MM3 (1.0-4.8); MEAN CELL VOLUME 101.7 FL (80.0-100.0); MEAN CORPUSCULAR HGB CONC 34.4 % (32.0-36.0); MONO % 16.2 % (0.0-8.0); NEUT % 68.8 % (16.0-70.0); PLATELET COUNT 151 TH/MM3 (150-450); RED BLOOD COUNT 3.16 MIL/MM3 (4.50-5.90); WHITE BLOOD COUNT 7.9 TH/MM3 (4.0-11.0)
[2016-12-13 06:57] LABS: BICARBONATE 27.8 MEQ/L (21.0-32.0); POTASSIUM 3.2 MEQ/L (3.5-5.1)
[2016-12-13] MEDS: SODIUM CHLORIDE 0.9% FLUSH 10 ML FLUSH IV FLUSH SCH ×2 (07:20→19:59)
[2016-12-13] MEDS: HALOPERIDOL LACTATE 5 MG/ML AMP IV PUSH PRN ×2 (07:41→19:59)
[2016-12-13] MEDS: levETIRAcetam INJ 500 MG in SODIUM CHLORIDE 0.9% INJ 100 ML IV SCH ×2 (09:11→19:58)
[2016-12-13] MEDS: ATORVASTATIN 40 MG TAB PO SCH (09:11)
[2016-12-13] MEDS: THIAMINE HCL 100 MG TAB PO SCH (09:11)
[2016-12-13] MEDS: ASPIRIN EC 81 MG TABEC PO SCH (09:11)
[2016-12-13] MEDS: LABETALOL HCL 200 MG TAB PO SCH ×2 (09:11→19:59)
[2016-12-13] MEDS: DOCUSATE SODIUM 50 MG/SENNA 8.6 MG TAB PO SCH ×2 (09:11→19:59)
--- NOTE | 2016-12-13 09:41 | HHI.PR ---
Subjective Subjective Remarks agitated, required Haldol and Ativan this morning, more calm now disoriented remains on restraints BP elevated difficult to obtain ROS Review of Systems Constitutional Constitutional: Weakness Constitutional Remarks unable to obtain ROS Pulmonary Respiratory: Shortness of Breath (none) Musculoskeletal MS: Weakness, Stiffness Neurologic Neurologic: Confused Psychiatric Psychiatric: Agitation (easily) Vitals/Results Intake & Output 12/12/16 12/12/16 12/13/16 15:00 23:00 07:00 Intake Total 1050 ml 810 ml 970 ml Output Total 650 ml 850 ml 900 ml Balance 400 ml -40 ml 70 ml Intake Oral 200 ml 400 ml 450 ml IV Total 850 ml 410 ml 520 ml Output Urine Total 650 ml 850 ml 900 ml Vital Signs Vital Signs Date Time Temp Pulse Resp B/P Pulse Ox O2 Delivery O2 Flow Rate FiO2 12/13/16 07:52 99 Nasal Cannula 2.00 12/13/16 06:00 74 12/13/16 04:00 98.3 76 28 180/74 97 12/13/16 04:00 76 12/13/16 02:00 73 12/13/16 00:00 73 12/13/16 00:00 98.5 73 20 165/80 100 12/12/16 22:00 75 12/12/16 20:02 100 Nasal Cannula 3.00 12/12/16 20:00 84 12/12/16 20:00 99.1 84 23 220/105 12/12/16 19:00 92 Nasal Cannula 4.00 12/12/16 18:00 92 Nasal Cannula 4.00 12/12/16 18:00 99 12/12/16 16:00 99 12/12/16 16:00 99.3 78 22 180/99 96 12/12/16 15:37 78 21 202/93 12/12/16 15:31 74 23 207/98 98 12/12/16 15:08 73 24 186/96 98 12/12/16 15:00 78 27 212/101 98 12/12/16 14:30 82 29 207/99 98 12/12/16 14:00 76 25 173/86 98 12/12/16 14:00 99 12/12/16 13:30 77 27 173/86 98 12/12/16 13:00 70 23 170/91 98 12/12/16 12:30 69 26 165/89 100 6/10/17 12:00 70 19 149/86 99 12/12/16 12:00 99.0 66 22 149/86 96 12/12/16 12:00 99 12/12/16 11:30 71 21 149/82 98 12/12/16 11:00 72 24 161/77 99 12/12/16 10:35 75 28 173/89 97 12/12/16 10:21 79 22 209/103 98 12/12/16 10:00 81 34 166/100 98 12/12/16 10:00 85 CBC/BMP: 12/13/16 0520 12/13/16 0520 Lab Results Laboratory Tests Test 12/12/16 12/13/16 22:52 05:20 Potassium Level 3.1 MEQ/L 3.2 MEQ/L Phosphorus Level 2.5 MG/DL White Blood Count 7.9 TH/MM3 Red Blood Count 3.16 MIL/MM3 Hemoglobin 11.1 GM/DL Hematocrit 32.2 % Mean Corpuscular Volume 101.7 FL Mean Corpuscular Hemoglobin 35.0 PG Mean Corpuscular Hemoglobin 34.4 % Concent Red Cell Distribution Width 15.0 % Platelet Count 151 TH/MM3 Mean Platelet Volume 10.1 FL Neutrophils (%) (Auto) 68.8 % Lymphocytes (%) (Auto) 10.6 % Monocytes (%) (Auto) 16.2 % Eosinophils (%) (Auto) 4.0 % Basophils (%) (Auto) 0.4 % Neutrophils # (Auto) 5.4 TH/MM3 Lymphocytes # (Auto) 0.8 TH/MM3 Monocytes # (Auto) 1.3 TH/MM3 Eosinophils # (Auto) 0.3 TH/MM3 Basophils # (Auto) 0.0 TH/MM3 CBC Comment DIFF FINAL Differential Comment Sodium Level 142 MEQ/L Chloride Level 104 MEQ/L Carbon Dioxide Level 27.8 MEQ/L Anion Gap 10 MEQ/L Blood Urea Nitrogen 10 MG/DL Creatinine 0.71 MG/DL Estimat Glomerular Filtration 112 ML/MIN Rate Random Glucose 94 MG/DL Calcium Level 8.7 MG/DL Physical Exam General General Appearance: Well Developed, Well Nourished, Anxious Eyes Eye Exam: Pupils Equal, Pupils Reactive Ears & Nose Ears & Nose Exam: Nasal Mucosa [place] Throat Throat Exam: Oral Mucosa [place] & Moist Neck Neck Exam: Neck Supple, Trachea Midline Pulmonary Resp Exam: Breath Sounds Equal Cardiology CV Exam: Regular, Good Perfusion Gastrointestinal/Abdomen GI Exam: Soft, Non-Tender, Bowel Sounds Present, Non-Distended Genitourinary Exam: Clear Urine Remarks CHANEL Musculoskeletal MS Exam: Joints Intact Integumentary Skin Exam: Warm, Dry Extremeties Extremities Exam: No Edema, Pedal Pulses Palpable Neurologic Neuro Exam: Awake, Speech Clear, Moving All Extremities, No Focal Deficits Psychiatric Psych Exam: Appropriate Responses VTE Prophylaxis VTE Prophylaxis Device: SCDs PUD Prophylasis PUD Prophylaxis: Protonix Assessment/Plan Problem List: (1) Alcohol withdrawal seizure (2) GRETCHEN (acute kidney injury) (3) Hyperammonemia (4) Hypertensive urgency (5) Seizure (6) Hypokalemia (7) Alcohol abuse (8) Delirium tremens Assessment/Plan 65-year-old male patient with known history of alcohol abuse and prior alcohol withdrawal seizures. Presented to the emergency room with recurrent seizures, apparently he had had 3 drinks the night before. Alcohol level was 18. DT sec. ETOH abuse -CIWA protocol -Inc. Librium to 20 mg PO TID, hold excessive sedation -Appreciate CCM input, they have signed off. Off Precedex now - monitor for Seizure activity -improving slowly, remains with periods of agitation Seizures sec. ETOH -Appreciate Neurology input -EEG x 3, results noted-encephalopathy -continue with Keppra, folic acid thiamine and multivitamins -Seizure precautions, continuous ECG monitoring -Neuro checks every 4 hours, occ. agitation. -PRN Ativan Hypertensive urgency-off cardene drip now BP remains elevated associated with inc. periods of agitation -Continue labetalol and Clonidine -Continue PRN Hydralazine Acute kidney injury, hyponatremia, hypokalemia renal function improved Poor PO intake -Continue with D5NS -Replace K -Electrolyte protocol Heparin/SCDs for DVT prophylaxis Protonix for GI prophylaxis keep in ICU for now Labs reviewed. D/W RN D/W D/W pt. This patient was seen by myself and , this note is written on her behalf Problem Qualifiers (1) Alcohol withdrawal seizure: Qualified Code: F10.239 - Alcohol withdrawal seizure, with unspecified complication Citlali Arellano Dec 13, 2016 09:41
--- NOTE | 2016-12-13 10:29 | PD.CARD.PN ---
Subjective Subjective Remarks asleep in nad Objective Vital Signs / I&O Vital Signs Date Time Temp Pulse Resp B/P Pulse Ox O2 Delivery O2 Flow Rate FiO2 12/13/16 07:52 99 Nasal Cannula 2.00 12/13/16 06:00 74 12/13/16 04:00 98.3 76 28 180/74 97 12/13/16 04:00 76 12/13/16 02:00 73 12/13/16 00:00 73 12/13/16 00:00 98.5 73 20 165/80 100 12/12/16 22:00 75 12/12/16 20:02 100 Nasal Cannula 3.00 12/12/16 20:00 84 12/12/16 20:00 99.1 84 23 220/105 12/12/16 19:00 92 Nasal Cannula 4.00 12/12/16 18:00 92 Nasal Cannula 4.00 12/12/16 18:00 99 12/12/16 16:00 99 12/12/16 16:00 99.3 78 22 180/99 96 12/12/16 15:37 78 21 202/93 12/12/16 15:31 74 23 207/98 98 12/12/16 15:08 73 24 186/96 98 12/12/16 15:00 78 27 212/101 98 12/12/16 14:30 82 29 207/99 98 12/12/16 14:00 76 25 173/86 98 12/12/16 14:00 99 12/12/16 13:30 77 27 173/86 98 12/12/16 13:00 70 23 170/91 98 12/12/16 12:30 69 26 165/89 100 12/12/16 12:00 70 19 149/86 99 12/12/16 12:00 99.0 66 22 149/86 96 12/12/16 12:00 99 12/12/16 11:30 71 21 149/82 98 12/12/16 11:00 72 24 161/77 99 12/12/16 10:35 75 28 173/89 97 I/O 12/12/16 12/12/16 12/12/16 12/13/16 12/13/16 12/13/16 07:00 15:00 23:00 07:00 15:00 23:00 Intake Total 1312 ml 1050 ml 810 ml 970 ml Output Total 850 ml 650 ml 850 ml 900 ml Balance 462 ml 400 ml -40 ml 70 ml Intake Oral 200 ml 400 ml 450 ml IV Total 922 ml 850 ml 410 ml 520 ml Tube Feeding 390 ml Output Urine Total 850 ml 650 ml 850 ml 900 ml Physical Exam GENERAL: SKIN: Warm and dry. HEAD: Normocephalic. EYES: No scleral icterus. No injection or drainage. NECK: Supple, trachea midline. No JVD or lymphadenopathy. CARDIOVASCULAR: Regular rate and rhythm without murmurs, gallops, or rubs. RESPIRATORY: Breath sounds equal bilaterally. No accessory muscle use. GASTROINTESTINAL: Abdomen soft, non-tender, nondistended. MUSCULOSKELETAL: No cyanosis, or edema. BACK: Nontender without obvious deformity. No CVA tenderness. Laboratory Laboratory Tests Test 12/12/16 12/13/16 22:52 05:20 Potassium Level 3.1 MEQ/L 3.2 MEQ/L Phosphorus Level 2.5 MG/DL White Blood Count 7.9 TH/MM3 Red Blood Count 3.16 MIL/MM3 Hemoglobin 11.1 GM/DL Hematocrit 32.2 % Mean Corpuscular Volume 101.7 FL Mean Corpuscular Hemoglobin 35.0 PG Mean Corpuscular Hemoglobin 34.4 % Concent Red Cell Distribution Width 15.0 % Platelet Count 151 TH/MM3 Mean Platelet Volume 10.1 FL Neutrophils (%) (Auto) 68.8 % Lymphocytes (%) (Auto) 10.6 % Monocytes (%) (Auto) 16.2 % Eosinophils (%) (Auto) 4.0 % Basophils (%) (Auto) 0.4 % Neutrophils # (Auto) 5.4 TH/MM3 Lymphocytes # (Auto) 0.8 TH/MM3 Monocytes # (Auto) 1.3 TH/MM3 Eosinophils # (Auto) 0.3 TH/MM3 Basophils # (Auto) 0.0 TH/MM3 CBC Comment DIFF FINAL Differential Comment Sodium Level 142 MEQ/L Chloride Level 104 MEQ/L Carbon Dioxide Level 27.8 MEQ/L Anion Gap 10 MEQ/L Blood Urea Nitrogen 10 MG/DL Creatinine 0.71 MG/DL Estimat Glomerular Filtration 112 ML/MIN Rate Random Glucose 94 MG/DL Calcium Level 8.7 MG/DL Assessment and Plan Problem List: (1) Seizure (2) Alcohol withdrawal seizure (3) Hypertensive urgency (4) GRETCHEN (acute kidney injury) (5) Alcohol abuse Assessment and Plan 1.) Troponon elevation - suspect secondary to seizure, rec dc tobacco, bp improved on labetolol 200 mg bid , cont aspirin 81 mg qd, lipitor 20 mg hs Problem Qualifiers (1) Alcohol withdrawal seizure: Qualified Code: F10.239 - Alcohol withdrawal seizure, with unspecified complication Seferino Raphael MD Dec 13, 2016 10:29
[2016-12-13] MEDS: DEXT 5%-NACL 0.9% 1000 ML INJ 1,000 ML IV SCH (10:33)
[2016-12-13] MEDS: PANTOPRAZOLE SODIUM 40 MG VIAL IV PUSH SCH (17:07)
[2016-12-13] MEDS: ENOXAPARIN SODIUM 40 MG/0.4 ML SYRINGE SQ SCH (17:08)
[2016-12-14] VITALS (14 sets, daily range): BP systolic 123–188; BP diastolic 63–100; PULSE 63–87; RESP 16–24; TEMP 98.3–99.5; O2SAT 95–100
[2016-12-14] MEDS: cloNIDine HCL 0.2 MG TAB PO SCH ×3 (00:12→17:44)
[2016-12-14] MEDS: POTASSIUM CHLOR 20 MEQ PREMIX 100 ML IV PRN (00:12)
[2016-12-14] MEDS: hydrALAZINE HCL 20 MG/ML VIAL IV PUSH PRN (00:12)
[2016-12-14] MEDS: HALOPERIDOL LACTATE 5 MG/ML AMP IV PUSH PRN (00:12)
[2016-12-14 07:08] LABS: POTASSIUM 3.7 MEQ/L (3.5-5.1)
[2016-12-14] MEDS: DOCUSATE SODIUM 50 MG/SENNA 8.6 MG TAB PO SCH ×2 (07:54→20:11)
[2016-12-14] MEDS: ASPIRIN EC 81 MG TABEC PO SCH (07:54)
[2016-12-14] MEDS: ATORVASTATIN 40 MG TAB PO SCH (07:54)
[2016-12-14] MEDS: LABETALOL HCL 200 MG TAB PO SCH ×2 (07:54→20:11)
[2016-12-14] MEDS: THIAMINE HCL 100 MG TAB PO SCH (07:54)
[2016-12-14] MEDS: SODIUM CHLORIDE 0.9% FLUSH 10 ML FLUSH IV FLUSH SCH ×2 (07:55→20:12)
[2016-12-14] MEDS: levETIRAcetam INJ 500 MG in SODIUM CHLORIDE 0.9% INJ 100 ML IV SCH ×2 (07:55→20:11)
[2016-12-14] MEDS: DEXT 5%-NACL 0.9% 1000 ML INJ 1,000 ML IV SCH (07:56)
[2016-12-14] MEDS: LORazepam 2 MG/ML VIAL IV PUSH PRN (08:12)
--- NOTE | 2016-12-14 12:34 | HHI.PR ---
Subjective Subjective Remarks not as agitated, awakes to voice, oriented to self, place, not sure of year following commands taking sips of fluid less tremors BP improved Review of Systems Constitutional Constitutional Remarks unable to obtain ROS Vitals/Results Intake & Output 12/13/16 12/13/16 12/14/16 15:00 23:00 07:00 Intake Total 514 ml 1188 ml 822 ml Output Total 575 ml 800 ml 950 ml Balance -61 ml 388 ml -128 ml Intake Oral 240 ml 400 ml 400 ml IV Total 274 ml 788 ml 422 ml Output Urine Total 575 ml 800 ml 950 ml Vital Signs Vital Signs Date Time Temp Pulse Resp B/P Pulse Ox O2 Delivery O2 Flow Rate FiO2 12/14/16 10:00 72 12/14/16 09:13 95 Nasal Cannula 2.00 12/14/16 08:00 87 12/14/16 08:00 Nasal Cannula 4.00 40 12/14/16 08:00 99.5 87 24 155/79 96 12/14/16 06:00 83 12/14/16 04:00 69 12/14/16 04:00 98.3 69 16 150/85 99 12/14/16 04:00 99 Nasal Cannula 4.00 12/14/16 02:00 75 12/14/16 00:00 67 12/14/16 00:00 98.3 67 16 188/100 100 12/14/16 00:00 100 Nasal Cannula 4.00 12/13/16 22:00 62 12/13/16 20:56 98 Nasal Cannula 3.00 12/13/16 20:00 100 Nasal Cannula 4.00 12/13/16 20:00 99.0 66 17 167/101 100 12/13/16 20:00 66 12/13/16 18:00 69 12/13/16 16:00 63 12/13/16 16:00 100 Nasal Cannula 4.00 12/13/16 16:00 98.1 63 17 160/95 100 12/13/16 14:00 66 CBC/BMP: 12/13/16 0520 12/14/16 0623 Lab Results Laboratory Tests Test 12/13/16 12/14/16 14:48 06:23 Potassium Level 3.1 MEQ/L 3.7 MEQ/L Sodium Level 138 MEQ/L Chloride Level 103 MEQ/L Carbon Dioxide Level 26.0 MEQ/L Anion Gap 9 MEQ/L Blood Urea Nitrogen 10 MG/DL Creatinine 0.64 MG/DL Estimat Glomerular Filtration 126 ML/MIN Rate Random Glucose 100 MG/DL Calcium Level 9.3 MG/DL Physical Exam General General Appearance: Well Developed, Well Nourished, No Acute Distress, Comfortable, Sleeping Eyes Eye Exam: Pupils Equal, Pupils Reactive Ears & Nose Ears & Nose Exam: Nasal Mucosa [place] Throat Throat Exam: Oral Mucosa [place] & Moist Neck Neck Exam: Neck Supple, Trachea Midline Pulmonary Resp Exam: Breath Sounds Equal Cardiology CV Exam: Regular, Good Perfusion Gastrointestinal/Abdomen GI Exam: Soft, Non-Tender, Bowel Sounds Present, Non-Distended Genitourinary Exam: Clear Urine Remarks CHANEL Musculoskeletal MS Exam: Joints Intact Integumentary Skin Exam: Warm, Dry Extremeties Extremities Exam: No Edema, Pedal Pulses Palpable Neurologic Neuro Exam: Awake, Speech Clear, Moving All Extremities, No Focal Deficits Psychiatric Psych Exam: Appropriate Responses VTE Prophylaxis VTE Prophylaxis Device: SCDs PUD Prophylasis PUD Prophylaxis: Protonix Assessment/Plan Problem List: (1) Alcohol withdrawal seizure (2) GRETCHEN (acute kidney injury) (3) Hyperammonemia (4) Hypertensive urgency (5) Seizure (6) Hypokalemia (7) Alcohol abuse (8) Delirium tremens Assessment/Plan 65-year-old male patient with known history of alcohol abuse and prior alcohol withdrawal seizures. Presented to the emergency room with recurrent seizures, apparently he had had 3 drinks the night before. Alcohol level was 18. DT sec. ETOH abuse -WA protocol -continue Librium to 20 mg PO TID, hold excessive sedation -Appreciate CCM input, they have signed off. Off Precedex now - monitor for Seizure activity -improving slowly, less agitation, less tremors. More appropriate Seizures sec. ETOH -Appreciate Neurology input -EEG x 3, results noted-encephalopathy -continue with Keppra, folic acid thiamine and multivitamins -Seizure precautions, continuous ECG monitoring -Neuro checks every 4 hours, occ. agitation. -PRN Ativan Hypertensive urgency-off cardene drip now BP improving -Continue labetalol and Clonidine -Continue PRN Hydralazine Acute kidney injury, hyponatremia, hypokalemia renal function improved Poor PO intake -Continue with D5NS -Replace K as needed -Electrolyte protocol Heparin/SCDs for DVT prophylaxis Protonix for GI prophylaxis keep in ICU for now overall improving, less agitation hopefully tx out of ICU tomorrow D/W RN D/W D/W pt. This patient was seen by myself and , this note is written on her behalf Problem Qualifiers (1) Alcohol withdrawal seizure: Qualified Code: F10.239 - Alcohol withdrawal seizure, with unspecified complication Citlali Arellano Dec 14, 2016 12:34 D/W D/W pt. This patient was seen by myself and , this note is written on her behalf Problem Qualifiers (1) Alcohol withdrawal seizure: Qualified Code: F10.239 - Alcohol withdrawal seizure, with unspecified complication Citlali Arellano Dec 14, 2016 12:34
--- NOTE | 2016-12-14 13:29 | PD.CARD.PN ---
Subjective Subjective Remarks asleep in nad Objective Vital Signs / I&O Vital Signs Date Time Temp Pulse Resp B/P Pulse Ox O2 Delivery O2 Flow Rate FiO2 12/14/16 12:00 70 12/14/16 12:00 99.1 73 22 131/63 97 12/14/16 12:00 Nasal Cannula 4.00 40 12/14/16 10:00 72 12/14/16 09:13 95 Nasal Cannula 2.00 12/14/16 08:00 87 12/14/16 08:00 Nasal Cannula 4.00 40 12/14/16 08:00 99.5 87 24 155/79 96 12/14/16 06:00 83 12/14/16 04:00 69 12/14/16 04:00 98.3 69 16 150/85 99 12/14/16 04:00 99 Nasal Cannula 4.00 12/14/16 02:00 75 12/14/16 00:00 67 12/14/16 00:00 98.3 67 16 188/100 100 12/14/16 00:00 100 Nasal Cannula 4.00 12/13/16 22:00 62 12/13/16 20:56 98 Nasal Cannula 3.00 12/13/16 20:00 100 Nasal Cannula 4.00 12/13/16 20:00 99.0 66 17 167/101 100 12/13/16 20:00 66 12/13/16 18:00 69 12/13/16 16:00 63 12/13/16 16:00 100 Nasal Cannula 4.00 12/13/16 16:00 98.1 63 17 160/95 100 12/13/16 14:00 66 I/O 12/13/16 12/13/16 12/13/16 12/14/16 12/14/16 12/14/16 07:00 15:00 23:00 07:00 15:00 23:00 Intake Total 970 ml 514 ml 1188 ml 822 ml Output Total 900 ml 575 ml 800 ml 950 ml Balance 70 ml -61 ml 388 ml -128 ml Intake Oral 450 ml 240 ml 400 ml 400 ml IV Total 520 ml 274 ml 788 ml 422 ml Output Urine Total 900 ml 575 ml 800 ml 950 ml Physical Exam GENERAL: SKIN: Warm and dry. HEAD: Normocephalic. EYES: No scleral icterus. No injection or drainage. NECK: Supple, trachea midline. No JVD or lymphadenopathy. CARDIOVASCULAR: Regular rate and rhythm without murmurs, gallops, or rubs. RESPIRATORY: Breath sounds equal bilaterally. No accessory muscle use. GASTROINTESTINAL: Abdomen soft, non-tender, nondistended. MUSCULOSKELETAL: No cyanosis, or edema. BACK: Nontender without obvious deformity. No CVA tenderness. Laboratory Laboratory Tests Test 12/13/16 12/14/16 14:48 06:23 Potassium Level 3.1 MEQ/L 3.7 MEQ/L Sodium Level 138 MEQ/L Chloride Level 103 MEQ/L Carbon Dioxide Level 26.0 MEQ/L Anion Gap 9 MEQ/L Blood Urea Nitrogen 10 MG/DL Creatinine 0.64 MG/DL Estimat Glomerular Filtration 126 ML/MIN Rate Random Glucose 100 MG/DL Calcium Level 9.3 MG/DL Assessment and Plan Problem List: (1) Seizure (2) Alcohol withdrawal seizure (3) Hypertensive urgency (4) GRETCHEN (acute kidney injury) (5) Alcohol abuse Assessment and Plan 1.) Troponon elevation - suspect secondary to seizure, rec dc tobacco, bp improved on labetolol 200 mg bid , cont aspirin 81 mg qd, lipitor 20 mg hs Problem Qualifiers (1) Alcohol withdrawal seizure: Qualified Code: F10.239 - Alcohol withdrawal seizure, with unspecified complication Seferino Raphael MD Dec 14, 2016 13:29
[2016-12-14] MEDS: ENOXAPARIN SODIUM 40 MG/0.4 ML SYRINGE SQ SCH (17:44)
[2016-12-14] MEDS: PANTOPRAZOLE SODIUM 40 MG VIAL IV PUSH SCH (17:45)
[2016-12-14] MEDS: SODIUM CHLORIDE 0.9% FLUSH 10 ML FLUSH IV FLUSH PRN (20:12)
[2016-12-15] VITALS (7 sets, daily range): BP systolic 128–175; BP diastolic 70–82; PULSE 63–70; RESP 19–20; TEMP 96.5–99.3; O2SAT 94–97
[2016-12-15] MEDS: cloNIDine HCL 0.2 MG TAB PO SCH ×3 (00:18→17:04)
[2016-12-15] MEDS: DEXT 5%-NACL 0.9% 1000 ML INJ 1,000 ML IV SCH (06:42)
[2016-12-15] MEDS ORDERED: ACETAMINOPHEN 325 MG TAB PO PRN (09:30)
[2016-12-15] MEDS: LABETALOL HCL 200 MG TAB PO SCH (09:36)
[2016-12-15] MEDS: ASPIRIN EC 81 MG TABEC PO SCH (09:36)
[2016-12-15] MEDS: SODIUM CHLORIDE 0.9% FLUSH 10 ML FLUSH IV FLUSH SCH (09:36)
[2016-12-15] MEDS: levETIRAcetam INJ 500 MG in SODIUM CHLORIDE 0.9% INJ 100 ML IV SCH (09:37)
[2016-12-15] MEDS: THIAMINE HCL 100 MG TAB PO SCH (09:38)
[2016-12-15] MEDS: ATORVASTATIN 40 MG TAB PO SCH (09:38)
[2016-12-15] MEDS: DOCUSATE SODIUM 50 MG/SENNA 8.6 MG TAB PO SCH (09:38)
[2016-12-15] MEDS ORDERED: ACETAMINOPHEN/HYDROcodone 325 MG/5 MG TAB PO PRN (10:30)
--- NOTE | 2016-12-15 11:06 | HHI.PR ---
Subjective Subjective Remarks awakes to voice, oriented x 3 still a little groggy but overall improved better, not agitated c/o shoulder pain no tremors feels better "people have been telling to stop drinking for 60 years", non committal about stopping ETOH Review of Systems Constitutional Constitutional Remarks 12 point ROS completed, unreliable Vitals/Results Intake & Output 12/14/16 12/14/16 12/15/16 15:00 23:00 07:00 Intake Total 1170 ml 333 ml 307 ml Output Total 450 ml 550 ml 200 ml Balance 720 ml -217 ml 107 ml Intake Oral 600 ml IV Total 570 ml 333 ml 307 ml Output Urine Total 450 ml 550 ml 200 ml Stool Total 0 ml 0 ml Vital Signs Vital Signs Date Time Temp Pulse Resp B/P Pulse Ox O2 Delivery O2 Flow Rate FiO2 12/15/16 10:50 63 12/15/16 07:50 99.3 66 20 136/79 95 12/15/16 04:54 98.1 67 19 128/70 96 12/15/16 00:20 96.5 64 19 175/82 97 12/14/16 22:00 63 12/14/16 20:00 67 12/14/16 20:00 97 Nasal Cannula 2.00 12/14/16 20:00 98.6 67 17 132/77 97 12/14/16 19:39 96 Nasal Cannula 2.00 12/14/16 18:00 66 12/14/16 16:00 Nasal Cannula 4.00 40 12/14/16 16:00 98.8 74 22 123/69 98 12/14/16 16:00 74 12/14/16 14:00 76 12/14/16 12:00 70 12/14/16 12:00 99.1 73 22 131/63 97 12/14/16 12:00 Nasal Cannula 4.00 40 CBC/BMP: 12/13/16 0520 12/14/16 0623 Physical Exam General General Appearance: Well Developed, Well Nourished, No Acute Distress, Comfortable, Anxious Eyes Eye Exam: Pupils Equal, Pupils Reactive, Extraocular Movement Intact Ears & Nose Ears & Nose Exam: Nasal Mucosa [place] Throat Throat Exam: Oral Mucosa [place] & Moist Neck Neck Exam: Neck Supple, Trachea Midline Pulmonary Resp Exam: Breath Sounds Equal Cardiology CV Exam: Regular, Good Perfusion Gastrointestinal/Abdomen GI Exam: Soft, Non-Tender, Bowel Sounds Present, Non-Distended Genitourinary Exam: Clear Urine Remarks CHACON Musculoskeletal MS Exam: Joints Intact Integumentary Skin Exam: Warm, Dry Extremeties Extremities Exam: No Edema, Pedal Pulses Palpable Neurologic Neuro Exam: Awake, Speech Clear, Moving All Extremities, Poultry Slaughterer Equal, No Focal Deficits Psychiatric Psych Exam: Appropriate Responses VTE Prophylaxis VTE Prophylaxis Device: SCDs PUD Prophylasis PUD Prophylaxis: Protonix Assessment/Plan Problem List: (1) Alcohol withdrawal seizure (2) GRETCHEN (acute kidney injury) (3) Hyperammonemia (4) Hypertensive urgency (5) Seizure (6) Hypokalemia (7) Alcohol abuse (8) Delirium tremens Assessment/Plan 65-year-old male patient with known history of alcohol abuse and prior alcohol withdrawal seizures. Presented to the emergency room with recurrent seizures, apparently he had had 3 drinks the night before. Alcohol level was 18. DT sec. ETOH abuse -CIWA protocol -continue Librium to 20 mg PO TID, hold excessive sedation -Appreciate CCM input, they have signed off. Off Precedex now - monitor for Seizure activity -continues to improve, more oriented. Limited tremors. Seizures sec. ETOH -Appreciate Neurology input -EEG x 3, results noted-encephalopathy -continue with Keppra, folic acid thiamine and multivitamins -Seizure precautions, continuous ECG monitoring -Neuro checks every 4 hours, occ. agitation. -PRN Ativan Hypertensive urgency-off cardene drip now BP improving -Continue labetalol and Clonidine -Continue PRN Hydralazine Acute kidney injury, hyponatremia, hypokalemia renal function improved Poor PO intake -Continue with D5NS -Replace K as needed -Electrolyte protocol Heparin/SCDs for DVT prophylaxis Protonix for GI prophylaxis PT for OOB with assistance Remove chacon d/w CM, no payor source for HHC hopefully dc in 1-2 days when able to ambulate and more awake D/W RN D/W D/W pt. D/W CM This patient was seen by myself and , this note is written on her behalf Problem Qualifiers (1) Alcohol withdrawal seizure: Qualified Code: F10.239 - Alcohol withdrawal seizure, with unspecified complication Citlali Arellano Dec 15, 2016 11:06
[2016-12-15] MEDS ORDERED: CHLO10CA5 PO (13:28)
--- NOTE | 2016-12-15 13:46 | PD.CARD.PN ---
Subjective Subjective Remarks alert in nad Objective Vital Signs / I&O Vital Signs Date Time Temp Pulse Resp B/P Pulse Ox O2 Delivery O2 Flow Rate FiO2 12/15/16 11:50 98.6 65 20 164/78 94 12/15/16 10:50 63 12/15/16 09:24 95 Nasal Cannula 2.00 12/15/16 07:50 99.3 66 20 136/79 95 12/15/16 04:54 98.1 67 19 128/70 96 12/15/16 00:20 96.5 64 19 175/82 97 12/14/16 22:00 63 12/14/16 20:00 67 12/14/16 20:00 97 Nasal Cannula 2.00 12/14/16 20:00 98.6 67 17 132/77 97 12/14/16 19:39 96 Nasal Cannula 2.00 12/14/16 18:00 66 12/14/16 16:00 Nasal Cannula 4.00 40 12/14/16 16:00 98.8 74 22 123/69 98 12/14/16 16:00 74 12/14/16 14:00 76 I/O 12/14/16 12/14/16 12/14/16 12/15/16 12/15/16 12/15/16 07:00 15:00 23:00 07:00 15:00 23:00 Intake Total 822 ml 1170 ml 333 ml 307 ml Output Total 950 ml 450 ml 550 ml 200 ml 250 ml Balance -128 ml 720 ml -217 ml 107 ml -250 ml Intake Oral 400 ml 600 ml IV Total 422 ml 570 ml 333 ml 307 ml Output Urine Total 950 ml 450 ml 550 ml 200 ml 250 ml Stool Total 0 ml 0 ml Physical Exam GENERAL: SKIN: Warm and dry. HEAD: Normocephalic. EYES: No scleral icterus. No injection or drainage. NECK: Supple, trachea midline. No JVD or lymphadenopathy. CARDIOVASCULAR: Regular rate and rhythm without murmurs, gallops, or rubs. RESPIRATORY: Breath sounds equal bilaterally. No accessory muscle use. GASTROINTESTINAL: Abdomen soft, non-tender, nondistended. MUSCULOSKELETAL: No cyanosis, or edema. BACK: Nontender without obvious deformity. No CVA tenderness. Assessment and Plan Problem List: (1) Seizure (2) Alcohol withdrawal seizure (3) Hypertensive urgency (4) GRETCHEN (acute kidney injury) (5) Alcohol abuse Assessment and Plan 1.) Troponon elevation - suspect secondary to seizure, rec dc tobacco, bp improved on labetolol 200 mg bid , cont aspirin 81 mg qd, lipitor 20 mg hs Problem Qualifiers (1) Alcohol withdrawal seizure: Qualified Code: F10.239 - Alcohol withdrawal seizure, with unspecified complication Seferino Raphael MD Dec 15, 2016 13:46
[2016-12-15] MEDS: ENOXAPARIN SODIUM 40 MG/0.4 ML SYRINGE SQ SCH (17:04)
[2016-12-15] MEDS: PANTOPRAZOLE SODIUM 40 MG VIAL IV PUSH SCH (17:04)
[2016-12-15] MEDS ORDERED: levETIRAcetam 250 MG TAB PO SCH (21:00)
[2016-12-15] MEDS ORDERED: levETIRAcetam 500 MG TAB PO SCH (21:00)
--- NOTE | 2016-12-18 19:04 | HHI.DS ---
Discharge Summary Admission Date Dec 07, 2016 at 18:50 Discharge Date: Dec 15, 2016 Admitting Diagnosis SEIZURE; PROLONGED POST-ICTAL STATE; ALCOHOL ABUSE; HTN URGENCY (1) Seizure (2) Hypertensive urgency (3) Alcohol abuse (4) Alcohol withdrawal seizure (5) GRETCHEN (acute kidney injury) (6) Hyperammonemia CBC/BMP: 12/14/16 0623 Imaging Last Impressions Chest X-Ray 12/12/16 0000 Signed Impressions: Service Date/Time: Monday, December 12, 2016 07:54 - CONCLUSION: Interval improvement with less air space disease right base. Cb Ferrara MD FACR Abdomen X-Ray 12/10/162029 Signed Impressions: Service Date/Time: December 20:16 - CONCLUSION: Feeding tube in the stomach Cisco Severino MD Brain MRI 12/08/16 0000 Signed Impressions: Service Date/Time: Thursday, December 08, 2016 17:00 - CONCLUSION: 1. No acute intracranial abnormality. 2. Chronic small vessel ischemic change. Reji Estrella Jr., MD Head CT 12/07/16 0000 Signed Impressions: Service Date/Time: Wednesday, December 07, 2016 15:25 - CONCLUSION: 1. Redemonstration moderate periventricular ischemic white matter demyelination consistent with small vessel disease. 2. No acute intracranial abnormality. Marco Hyatt MD Hospital Course Patient is a 65 year old male with past medical history of heavy alcohol consumption and dependence. Apparently he had been sober for some time. He has had alcohol withdrawal seizures in the past every time he quits and has required hospital admissions. According to the girlfriend who is providing most of the history, they had gone to [employer] to have lunch and she noted that he started sweating and was kind of just staring at her not focusing. States that she had to prompt him to stand up and leave and he was slow to respond. She insisted on driving and on the way home he had a seizure. She immediately brought him to the hospital for evaluation. By the time he arrived in the emergency room he was longer seizing that was postictal. Significant other indicated that she was not aware that the patient was drinking, his blood alcohol level was 18. Patient finally started waking up and was confronted by the ER physician and he finally admitted to having 3 drinks last evening in 3 drinks the night before. Laboratory workup was completed, magnesium was 1.5. Ammonia was elevated at 91. Troponin was negative. Toxicology was negative. He was noted hypertensive and required hydralazine 2, Labetalol, and Clonidine. He complained of indigestion and received a GI cocktail. An EKG was completed and it was normal. His blood pressure remained elevated despite medical treatment, therefore he was placed on a Cardene drip and was upgraded to a CIC bed. While he was been evaluated by hospitalist, patient had another seizure. He received Ativan 1 mg and was loaded with Keppra. In the ED, patient was still postictal, he remained hypertensive and was on a Cardene drip. He was admitted to the intensive care unit for closer monitoring. According to the significant other, she didn't know that he had started drinking. She denied any illegal drug use. Patient was admitted for further evaluation and treatment for: (1) Alcohol withdrawal seizure (2) GRETCHEN (acute kidney injury) (3) Hyperammonemia (4) Hypertensive urgency (5) Seizure (6) Hypokalemia (7) Alcohol abuse (8) Delirium tremens During the course of the hospitalization, the following took place: 65-year-old male patient with known history of alcohol abuse and prior alcohol withdrawal seizures. Presented to the emergency room with recurrent seizures, apparently he had had 3 drinks the night before. Alcohol level was 18. DT sec. ETOH abuse -Admitted to ICU -CIWA protocol -continue Librium to 20 mg PO TID, hold excessive sedation -Appreciate [facility] input, they put patient on Precedex until he stabilized. - monitored for Seizure activity -Pt. improved, was transferred out of ICU Seizures sec. ETOH -Appreciated Neurology input -EEG x 3, results noted-encephalopathy -continued with Keppra, folic acid thiamine and multivitamins -Seizure precautions, continuous ECG monitoring -Neuro checks every 4 hours, occ. agitation. -PRN Ativan given -no seizure observed after admission. Hypertensive urgency-off cardene drip now BP improved -Continued labetalol and Clonidine -Continued PRN Hydralazine Acute kidney injury, hyponatremia, hypokalemia renal function improved Poor PO intake -Continue with D5NS -Replace K as needed -Electrolyte protocol -improved PO intake, electrolytes stabilized. Heparin/SCDs for DVT prophylaxis Protonix for GI prophylaxis PT for OOB with assistance Removed chacon d/w CM, no payor source for C Patient improved, started ambulating. Was more appropriate, alert oriented 3. No agitation. Was counseled extensively about alcohol use, however patient seem noncommittal. Patient was discharged in stable condition Instructed not to drive, operate heavy machinery, no swimming. Follow-up with PCP as outpatient Pt Condition on Discharge: Stable Discharge Disposition: Discharge Home Discharge Instructions DIET: Follow Instructions for: Heart Healthy Diet Speech Therapy-Diet Recommends: Mechanical Soft, [place] Thickened Liquids Additional Diet Instructions: abstain from alcohol Activities you can perform: Weight Bearing as [place] Other Activity Instructions: no driving no swimming Follow up Referrals: Neurology - 3 Weeks PCP Follow-up - 1 Week New Medications: Chlordiazepoxide HCl (Chlordiazepoxide HCl) 10 Mg Capsule 10 MG PO TID Alcohol Detox #9 TAB Levetiracetam (Keppra) 500 Mg Tab 500 MG PO Q12HR seizure #60 TAB Continued Medications: Aspirin DR (Aspirin DR) 81 Mg Tabdr 81 MG PO DAILY Ref 0 TAB Atorvastatin (Atorvastatin) 40 Mg Tab 40 MG PO DAILY Cholesterol Management #30 Ref 0 TAB Calcium Carbonate (Antacid) (Tums) 500 Mg Chew 1000 MG CHEW Q6HR PRN HEARTBURN Ref 0 TAB Clonidine (Clonidine) 0.2 Mg Tab 0.2 MG PO BID Blood Pressure Management #60 Ref 0 TAB Labetalol (Labetalol) 200 Mg Tab 200 MG PO BID Blood Pressure Management Ref 0 TAB Citlali Arellano Dec 18, 2016 19:03
== END 2016-12-15 21:09 | disposition left against medical advice (07) | DRG 894 ==
LOC: NEPE 13:54 → NEDA 16:59 → OBSVTOIN 18:50 → HIMW 20:55 → N05B 12-15 00:11
PROVIDERS: ADMIT Internal Medicine; ATTEND Internal Medicine
DX: F10.231 Alcohol dependence with withdrawal delirium (principal); G93.40 Encephalopathy, unspecified; N17.9 Acute kidney failure, unspecified; I11.0 Hypertensive heart disease with heart failure; I50.9 Heart failure, unspecified; E87.1 Hypo-osmolality and hyponatremia; G40.89 Other seizures; I16.0 Hypertensive urgency; K30 Functional dyspepsia; E78.5 Hyperlipidemia, unspecified; D75.89 Other specified diseases of blood and blood-forming organs; E87.6 Hypokalemia; D72.829 Elevated white blood cell count, unspecified; M10.9 Gout, unspecified; F17.210 Nicotine dependence, cigarettes, uncomplicated; Y90.0 Blood alcohol level of less than 20 mg/100 ml; Z78.1 Physical restraint status; Z88.0 Allergy status to penicillin; Z91.14 Patient's other noncompliance with medication regimen
CPT/HCPCS: 70450; 70551; 71010; 74000; 80048; 80053; 80076; 80307; 81001; 82140; 82550; 82552; 83735; 84100; 84132; 84484; 85007; 85025; 85027; 87086; 87641; 93005; 93306; 95819; 96365; 96375; C9113; J0360; J1630; J1650; J1953; J2060; J2405; J3411; J3480; J7030; J7040; J7042; J7050; J7070

== ENCOUNTER 2017-09-01 10:45 | Inpatient (IN) | payer SELFPAY ==
[2017-09-01] VITALS (16 sets, daily range): BP systolic 134–245; BP diastolic 82–138; PULSE 84–133; RESP 16–18; TEMP 97.7–98; O2SAT 96–99
[~2017-09-01] VITALS: Ht 182.9 cm; Wt 81.0 kg
[~2017-09-01 10:45] MED LIST changes: +ATOR40TA16 PO; -CHLO10 PO; +CHLO10CA5 PO; +CLON0.2T PO; +ECASA81 PO; -HYDR25TA35 PO; -KCL10C PO; +LABE200T2 PO; -LISI-363 PO; -TAB-TAB PO; +TUMS500C CHEW
[2017-09-01] MEDS ORDERED: SODIUM CHLOR 0.9% 1000 ML INJ 1,000 ML IV SCH (10:55)
[2017-09-01] MEDS ORDERED: LORazepam 2 MG/ML VIAL IV PUSH ONE (11:00)
[2017-09-01] MEDS ORDERED: SODIUM CHLORIDE 0.9% FLUSH 10 ML FLUSH IV FLUSH PRN ×2 (11:00→15:00)
--- NOTE | 2017-09-01 11:11 | PD ---
HPI Chief Complaint: Altered mental status. Time Seen by Provider: 10:52 Travel History International Travel<30 days: No Contact w/Intl Traveler<30days: No History of Present Illness HPI Patient is a 66 year old male present to the ER for evaluation of altered mental status. According to EMS the patient's fiance called 911 today. They state that she called the patient approximately 8:00 and was acting his normal self and then she called again about 845 and he was acting drunk. The patient had no focalized deficits, on arrival he is oriented and follows commands in all 4 extremities. He states he does not remember what happened. He states his last drink of alcohol was 2 days ago, he does not follow up with a regular physician, he knows she has had high blood pressure before. EMS also related to history the patient has been admitted for similar in the past and his fichelsea stevenson was quite worried on scene about him having another problem with his blood pressure and needing to be admitted. Review of the patient's record shows that he has been admitted in the past for seizure-like activity and probable alcohol withdrawal seizures. Symptoms are moderate, nearly resolved, context as above, not associated with any headache chest pain shortness of breath abdominal pain nausea vomiting PFSH Past Medical History Asthma: Yes ( A CHILD) Autoimmune Disease: No Heart Rhythm Problems: No Cardiovascular Problems: No High Cholesterol: Yes Chest Pain: No Congestive Heart Failure: Yes COPD: No Cerebrovascular Accident: No Diabetes: No Diminished Hearing: No Endocrine: No Gastrointestinal Disorders: Yes (hx of GI [id number] tear x2) Gout: Yes Genitourinary: No Headaches: No Hypertension: Yes Immune Disorder: No Musculoskeletal: No Neurologic: Yes Reproductive: No Respiratory: Yes Migraines: No Seizures: Yes Sleep Apnea: No Thyroid Disease: No Past Surgical History Abdominal Surgery: Yes Cardiac Surgery: No Ear Surgery: No Endocrine Surgery: No Eye Surgery: No Genitourinary Surgery: No Gynecologic Surgery: No Neurologic Surgery: No Oral Surgery: Yes Thoracic Surgery: No Other Surgery: Yes Social History Alcohol Use: Yes ("NOT EVERY DAY") Tobacco Use: Yes (1 PPD) Substance Use: No Allergies-Medications (Allergen,Severity, Reaction): Coded Allergies: penicillin G (Unverified Allergy, Mild, PASS OUT, 02/16/17) Reported Meds & Prescriptions Reported Meds & Active Scripts Active Chlordiazepoxide HCl 10 Mg Capsule 10 Mg PO TID Reported Tums (Calcium Carbonate (Antacid)) 500 Mg Chew 1,000 Mg CHEW Q6HR PRN Aspirin DR (Aspirin) 81 Mg Tabdr 81 Mg PO DAILY Labetalol (Labetalol HCl) 200 Mg Tab 200 Mg PO BID Clonidine (Clonidine HCl) 0.2 Mg Tab 0.2 Mg PO BID Atorvastatin (Atorvastatin Calcium) 40 Mg Tab 40 Mg PO DAILY Review of Systems Except as stated in HPI: all other systems reviewed are Neg Physical Exam Narrative GENERAL: Well-developed well-nourished, quite pleasant in no obvious distress per SKIN: Focused skin assessment warm/dry. HEAD: Atraumatic. Normocephalic. No linn signs no raccoons eyes per EYES: Pupils equal and round. No scleral icterus. No injection or drainage. ENT: No nasal bleeding or discharge. Mucous membranes pink and moist. TMs clear bilaterally. NECK: Trachea midline. No JVD. CARDIOVASCULAR: Regular rate and rhythm. No murmur appreciated. RESPIRATORY: No accessory muscle use. Clear to auscultation. Breath sounds equal bilaterally. GASTROINTESTINAL: Abdomen soft, non-tender, nondistended. Hepatic and splenic margins not palpable. MUSCULOSKELETAL: No obvious deformities. No clubbing. No cyanosis. No edema. No midline CT or L-spine tenderness. NEUROLOGICAL: Awake and alert. No obvious cranial nerve deficits. Motor grossly within normal limits. Normal speech. Alert and awake and oriented, no tremor appreciated. PSYCHIATRIC: Appropriate mood and affect; insight and judgment normal. Data Data Last Documented VS Vital Signs Date Time Temp Pulse Resp B/P (MAP) Pulse Ox O2 Delivery O2 Flow Rate FiO2 09/01/17 13:32 104 18 175/96 (122) 97 Room Air 09/01/17 10:50 98.0 Orders Orders Electrocardiogram (09/01/17 10:55) Ammonia (09/01/17 10:55) Complete Blood Count With Diff (09/01/17 10:55) Comprehensive Metabolic Panel (09/01/17 10:55) Creatine Kinase (Cpk) (09/01/17 10:55) Prothrombin Time / Inr (Pt) (09/01/17 10:55) Act Partial Throm Time (Ptt) (09/01/17 10:55) Troponin I (09/01/17 10:55) Thyroid Stimulating Hormone (09/01/17 10:55) Urinalysis - C+S If Indicated (09/01/17 10:55) Chest, Single Ap (09/01/17 10:55) Ct Brain W/O Iv Contrast(Rout) (09/01/17 10:55) Blood Glucose (09/01/17 10:55) Ecg Monitoring (09/01/17 10:55) Iv Access Insert/Monitor (09/01/17 10:55) Oximetry (09/01/17 10:55) Sodium Chloride 0.9% Flush (Ns Flush) (09/01/17 11:00) Sodium Chlor 0.9% 1000 Ml Inj (Ns 1000 M (09/01/17 10:55) Drug Screen, Random Urine (09/01/17 10:55) Alcohol (Ethanol) (09/01/17 10:55) Lactic Acid (09/01/17 10:55) Lorazepam Inj (Ativan Inj) (09/01/17 11:00) Sodium Chlor 0.9% 1000 Ml Inj (Ns 1000 M (09/01/17 11:45) Nicardipine Inj (Cardene Inj) (09/01/17 12:30) Lactic Acid (09/01/17 12:39) Acetaminophen (Tylenol) (09/01/17 14:15) Admit Order (Ed Use Only) (09/01/17 ) Labs Laboratory Tests Test 09/01/17 11:00 09/01/17 12:00 09/01/17 12:54 White Blood Count 8.6 TH/MM3 Red Blood Count 4.31 MIL/MM3 Hemoglobin 14.8 GM/DL Hematocrit 43.2 % Mean Corpuscular Volume 100.2 FL Mean Corpuscular Hemoglobin 34.4 PG Mean Corpuscular Hemoglobin Concent 34.3 % Red Cell Distribution Width 13.8 % Platelet Count 260 TH/MM3 Mean Platelet Volume 9.3 FL Neutrophils (%) (Auto) 61.2 % Lymphocytes (%) (Auto) 28.5 % Monocytes (%) (Auto) 8.5 % Eosinophils (%) (Auto) 1.3 % Basophils (%) (Auto) 0.5 % Neutrophils # (Auto) 5.3 TH/MM3 Lymphocytes # (Auto) 2.5 TH/MM3 Monocytes # (Auto) 0.7 TH/MM3 Eosinophils # (Auto) 0.1 TH/MM3 Basophils # (Auto) 0.0 TH/MM3 CBC Comment DIFF FINAL Differential Comment Prothrombin Time 9.9 SEC Prothromb Time International Ratio 1.0 RATIO Activated Partial Thromboplast Time 26.7 SEC Blood Urea Nitrogen 12 MG/DL Creatinine 1.54 MG/DL Random Glucose 157 MG/DL Total Protein 8.5 GM/DL Albumin 4.3 GM/DL Calcium Level 9.9 MG/DL Alkaline Phosphatase 79 U/L Aspartate Amino Transf (AST/SGOT) 19 U/L Alanine Aminotransferase (ALT/SGPT) 14 U/L Total Bilirubin 0.5 MG/DL Sodium Level 133 MEQ/L Potassium Level 3.3 MEQ/L Chloride Level 99 MEQ/L Carbon Dioxide Level 19.3 MEQ/L Anion Gap 15 MEQ/L Estimat Glomerular Filtration Rate 46 ML/MIN Lactic Acid Level 7.8 mmol/L 1.1 mmol/L Ammonia 19 MCMOL/L Total Creatine Kinase 148 U/L Troponin I LESS THAN 0.02 NG/ML Thyroid Stimulating Hormone 3rd Gen 1.720 uIU/ML Ethyl Alcohol Level LESS THAN 3 MG/DL Urine Color YELLOW Urine Turbidity CLEAR Urine pH 6.5 Urine Specific [place] 1.007 Urine Protein 30 mg/dL Urine Glucose (UA) TRACE mg/dL Urine Ketones NEG mg/dL Urine Occult Blood TRACE Urine Nitrite NEG Urine Bilirubin NEG Urine Urobilinogen LESS THAN 2.0 MG/DL Urine Leukocyte Esterase NEG Urine RBC LESS THAN 1 /hpf Microscopic Urinalysis Comment CATH-CULT NOT IND Urine Opiates Screen NEG Urine Barbiturates Screen NEG Urine Amphetamines Screen NEG Urine Benzodiazepines Screen NEG Urine Cocaine Screen NEG Urine Cannabinoids Screen NEG [facility] Medical Decision Making Medical Screen Exam Complete: Yes Emergency Medical Condition: Yes Differential Diagnosis Differential diagnosis includes hypertensive emergency, hypertensive encephalopathy, seizure, alcohol withdrawal, alcohol withdrawal seizure, dehydration. Narrative Course This is a patient who had transient alteration of awareness probable syncopal episode probable seizure but certainly could be a hypertensive encephalopathy. Cardene drip was started. Patient's lactic acid was elevated and he is hypertensive which I think would follow along with him having a seizure, after 2 L of fluid lactic acid was repeated and troponin normal. CT head negative, basic labs reassuring. Alcohol withdrawal is also possibility the patient was given 1 mg of Ativan but has not been tremulous not febrile in the emergency department. Mental status is returning to baseline according to his fiance who is arrived. She states that she found him on the floor with some blood at the border of his mouth which also is probably consistent with an alcohol withdrawal seizure Patient was discussed with the residents manager instrumentation for admission Diagnosis Primary Impression: Hypertensive urgency Additional Impression: Altered mental status Admitting Information Admitting Physician Requests: Admit Condition: Adrián Jean MD Sep 01, 2017 11:11
[2017-09-01 11:15] LABS: AUTOMATED NEUTROPHIL # 5.3 TH/MM3 (1.8-7.7); BASOPHIL % 0.5 % (0.0-2.0); EOSINOPHIL # 0.1 TH/MM3 (0-0.4); EOSINOPHIL % 1.3 % (0.0-4.0); HEMATOCRIT 43.2 % (39.0-51.0); HEMOGLOBIN 14.8 GM/DL (13.0-17.0); LYMPH % 28.5 % (9.0-44.0); LYMPHOCYTE # 2.5 TH/MM3 (1.0-4.8); MEAN CELL VOLUME 100.2 FL (80.0-100.0); MEAN CORPUSCULAR HEMOGLOBIN 34.4 PG (27.0-34.0); MEAN CORPUSCULAR HGB CONC 34.3 % (32.0-36.0); MEAN PLATELET VOLUME 9.3 FL (7.0-11.0); MONO % 8.5 % (0.0-8.0); MONOCYTE # 0.7 TH/MM3 (0-0.9); NEUT % 61.2 % (16.0-70.0); PLATELET COUNT 260 TH/MM3 (150-450); RED BLOOD COUNT 4.31 MIL/MM3 (4.50-5.90); RED CELL DISTRIBUTION WIDTH 13.8 % (11.6-17.2); WHITE BLOOD COUNT 8.6 TH/MM3 (4.0-11.0)
[2017-09-01 11:28] LABS: PROTHROMBIN TIME - PATIENT 9.9 SEC (9.8-11.6)
[2017-09-01 11:30] LABS: ALBUMIN 4.3 GM/DL (3.4-5.0); ALT (GPT) 14 U/L (12-78); AST (GOT) 19 U/L (15-37); BICARBONATE 19.3 MEQ/L (21.0-32.0); BLOOD UREA NITROGEN 12 MG/DL (7-18); CALCIUM 9.9 MG/DL (8.5-10.1); CHLORIDE 99 MEQ/L (98-107); CREATININE 1.54 MG/DL (0.60-1.30); GLOMERULAR FILTRATION RATE 46 ML/MIN (>89); GLUCOSE,RANDOM 157 MG/DL (74-106); SODIUM (NA) 133 MEQ/L (136-145)
--- NOTE | 2017-09-01 11:32 | RADRPT ---
EXAM DATE/TIME: 09/01/2017 11:07 [facility] COMPARISON: CHEST SINGLE AP, December 12, 2016, 7:54. INDICATIONS : Slurred speech, weakness MEDICAL HISTORY : Congestive heart failure. Hypertension seizures SURGICAL HISTORY : None. ENCOUNTER: Initial ACUITY: 1 day PAIN SCORE: 0/10 LOCATION: Bilateral chest FINDINGS: A single view of the chest demonstrates the lungs to be symmetrically aerated without evidence of mas s, infiltrate or effusion. The cardiomediastinal contours are unremarkable. Osseous structures are intact. CONCLUSION: No acute disease. Cb Ferrara MD FACR on September 01, 2017 at 11:31 Board Certified Radiologist. This report was verified electronically.
--- NOTE | 2017-09-01 11:33 | RADRPT ---
EXAM DATE/TIME: 09/01/2017 11:15 [facility] COMPARISON: CT BRAIN W/O CONTRAST, December 07, 2016, 15:25. INDICATIONS : Altered mental status RADIATION DOSE: 56.35 CTDIvol (mGy) MEDICAL HISTORY : Seizures. Congestive heart failure. Hypertension.Asthma SURGICAL HISTORY : None. ENCOUNTER: Initial ACUITY: 1 day PAIN SCALE: 0/10 LOCATION: cranial TECHNIQUE: Multiple contiguous axial images were obtained of the head. Using automated exposure control and adj ustment of the mA and/or kV according to patient size, radiation dose was kept as low as reasonably a chievable to obtain optimal diagnostic quality images. DICOM format image data is available electro nically for review and comparison. FINDINGS: CEREBRUM: The ventricles are normal for age. No evidence of midline shift, mass lesion, hemorrhage or acute in farction. Moderate periventricular white matter changes are evident, stable No extra-axial fluid col lections are seen. POSTERIOR FOSSA: The cerebellum and brainstem are intact. The 4th ventricle is midline. The cerebellopontine angle i s unremarkable. EXTRACRANIAL: The visualized portion of the orbits is intact. SKULL: The calvaria is intact. No evidence of skull fracture. CONCLUSION: Negative for acute process. Cb Ferrara MD FACR on September 01, 2017 at 11:31 Board Certified Radiologist. This report was verified electronically.
[2017-09-01 11:40] LABS: ALKALINE PHOSPHATASE 79 U/L (45-117); TOTAL BILIRUBIN ADULT 0.5 MG/DL (0.2-1.0); TOTAL PROTEIN 8.5 GM/DL (6.4-8.2); TROPONIN I LESS THAN 0.02 NG/ML (0.02-0.05)
[2017-09-01] MEDS ORDERED: SODIUM CHLOR 0.9% 1000 ML INJ 1,000 ML IV ONE (11:45)
[2017-09-01 12:20] LABS: BILIRUBIN, URINE NEG (NEG); BLOOD, URINE TRACE (NEG); GLUCOSE,URINE TRACE mg/dL (NEG); KETONE, URINE NEG (NEG); NITRITE,URINE NEG (NEG); PH, URINE 6.5 (5.0-8.5); URINE COLOR YELLOW (YELLW/STRAW); URINE LEUKOCYTE ESTERASE NEG (NEG)
[2017-09-01] MEDS ORDERED: niCARdipine INJ 25 MG in SODIUM CHLOR 0.9% 250 ML INJ 240 ML IV PRN (12:30)
[2017-09-01] MEDS ORDERED: ACETAMINOPHEN 325 MG TAB PO ONE (14:15)
--- NOTE | 2017-09-01 14:28 | HHI.HP ---
HPI Service Family Medicine Primary Care Physician No Primary Care Physician Admission Diagnosis Syncope, possible seizure, hypertensive urgency. Diagnoses: International Travel<30 Days: No Contact w/Intl Traveler<30days: No Known Affected Area: No History of Present Illness Patient is a 66 year old male who presents to the ED after "passing out" this morning. He was talking on the phone to his girlfriend and woke up on the floor. Before passing out he felt dizzy and nauseous. He was told by his girlfriend that prior to passing out he was slurring his speech. He thinks he was possibly unconscious for 15 minutes and denies hitting head. He denies any similar episodes in the past. He has been feeling fine otherwise. No recent chest pain, shortness of breath, fevers, chills, nausea, vomiting, peripheral edema, or abdominal pain. He is complaining of right neck/shoulder pain. He denies biting tongue, urinary or fecal incontinence. He was somewhat disoriented upon waking. He is currently alert and oriented. He reports having a flu-like illness a few months ago but has resolved. He was previously on clonidine, labetalol and atorvastatin but has been off his blood pressure medicine for the last few months. He has been only taking Tylenol and aspirin and no other medications. (Horacio Mayorga MD, R1) Review of Systems Other per HPI (Horacio Mayorga MD, R1) Past Family Social History Past Medical History Hypertension GRETCHEN Alcohol Use Disorder Alcohol Withdrawal Seizure Hyperlipidemia Past Surgical History Dental Surgery (Horacio Mayorga MD, R1) Allergies: Coded Allergies: penicillin G (Unverified Allergy, Mild, PASS OUT, 02/16/17) Family History Mother passes away lung cancer- 80s Father from heart complications- 61 Brother in good health No history of seizures in family Social History Alcohol use: Drinks 3-4 rum drinks several times a week Tobacco use: Down to 5 cigarettes/day, 40 year smoking history at 1 P[employer] Illicit Substance use: denies Lives alone (Horacio Mayorga MD, R1) Physical Exam Vital Signs Vital Signs Date Time Temp Pulse Resp B/P (MAP) Pulse Ox O2 Delivery O2 Flow Rate FiO2 09/01/17 13:32 104 18 175/96 (122) 97 Room Air 09/01/17 13:14 208 119/102 09/01/17 13:12 102 16 208/119 (148) 99 Room Air 09/01/17 12:30 101 16 235/128 (163) 99 Room Air 09/01/17 12:00 104 16 226/128 (160) 98 Room Air 09/01/17 11:45 106 16 218/123 (154) 98 Room Air 09/01/17 11:00 126 16 245/134 (171) 98 Room Air 09/01/17 10:50 98.0 133 17 229/138 (168) 99 09/01/17 10:50 130 17 99 Room Air Physical Exam GENERAL: This is a well-nourished, well-developed older man, in NAD. SKIN: Bandage on left forearm. No other obvious rashes or lesions HEAD: Atraumatic. Normocephalic. EYES: Pupils equal round and reactive. Extraocular motions intact. No scleral icterus. No injection or drainage. ENT: Nose without bleeding or purulent drainage . NECK: Trachea midline. No lymphadenopathy. CARDIOVASCULAR: Tachycardic, no murmurs or extra beats RESPIRATORY: Clear to auscultation. Breath sounds equal bilaterally. No wheezes , rales, or rhonchi. GASTROINTESTINAL: Abdomen soft, non-tender, nondistended. No hepato-splenomegaly , or palpable masses. MUSCULOSKELETAL: Extremities without clubbing, cyanosis, or edema. NEUROLOGICAL: Awake and alert. Responds to questions appropriately. Cranial nerves II through XII intact. Motor and sensory grossly within normal limits. Normal speech. Laboratory Laboratory Tests Test 09/01/17 11:00 09/01/17 12:00 09/01/17 12:54 White Blood Count 8.6 Red Blood Count 4.31 Hemoglobin 14.8 Hematocrit 43.2 Mean Corpuscular Volume 100.2 Mean Corpuscular Hemoglobin 34.4 Mean Corpuscular Hemoglobin Concent 34.3 Red Cell Distribution Width 13.8 Platelet Count 260 Mean Platelet Volume 9.3 Neutrophils (%) (Auto) 61.2 Lymphocytes (%) (Auto) 28.5 Monocytes (%) (Auto) 8.5 Eosinophils (%) (Auto) 1.3 Basophils (%) (Auto) 0.5 Neutrophils # (Auto) 5.3 Lymphocytes # (Auto) 2.5 Monocytes # (Auto) 0.7 Eosinophils # (Auto) 0.1 Basophils # (Auto) 0.0 CBC Comment DIFF FINAL Differential Comment Prothrombin Time 9.9 Prothromb Time International Ratio 1.0 Activated Partial Thromboplast Time 26.7 Blood Urea Nitrogen 12 Creatinine 1.54 Random Glucose 157 Total Protein 8.5 Albumin 4.3 Calcium Level 9.9 Alkaline Phosphatase 79 Aspartate Amino Transf (AST/SGOT) 19 Alanine Aminotransferase (ALT/SGPT) 14 Total Bilirubin 0.5 Sodium Level 133 Potassium Level 3.3 Chloride Level 99 Carbon Dioxide Level 19.3 Anion Gap 15 Estimat Glomerular Filtration Rate 46 Lactic Acid Level 7.8 1.1 Ammonia 19 Total Creatine Kinase 148 Troponin I LESS THAN 0.02 Thyroid Stimulating Hormone 3rd Gen 1.720 Ethyl Alcohol Level LESS THAN 3 Urine Color YELLOW Urine Turbidity CLEAR Urine pH 6.5 Urine Specific [place] 1.007 Urine Protein 30 Urine Glucose (UA) TRACE Urine Ketones NEG Urine Occult Blood TRACE Urine Nitrite NEG Urine Bilirubin NEG Urine Urobilinogen LESS THAN 2.0 Urine Leukocyte Esterase NEG Urine RBC LESS THAN 1 Microscopic Urinalysis Comment CATH-CULT NOT IND Urine Opiates Screen NEG Urine Barbiturates Screen NEG Urine Amphetamines Screen NEG Urine Benzodiazepines Screen NEG Urine Cocaine Screen NEG Urine Cannabinoids Screen NEG (Horacio Mayorga MD, R1) Result Diagram: 09/01/17 1100 09/01/17 1100 Imaging Last Impressions Head CT 09/01/17 1055 Signed Impressions: Service Date/Time: Friday, September 01, 2017 11:15 - CONCLUSION: Negative for acute process. Cb Ferrara MD FACR Chest X-Ray 09/01/17 1055 Signed Impressions: Service Date/Time: Friday, September 01, 2017 11:07 - CONCLUSION: No acute disease. Cb Ferrara MD FACR (Horacio Mayorga MD, R1) Caprini VTE Risk Assessment Caprini VTE Risk Assessment: Mod/High Risk (score >= 2) Caprini Risk Assessment Model Point Value = 1 Point Value = 2 Point Value = 3 Point Value = 5 Age 41-60 Minor surgery BMI > 25 kg/m2 Swollen legs Varicose veins or History of unexplained or recurrent spontaneous Oral contraceptives or hormone replacement Sepsis (< 1 month) Serious lung disease, including pneumonia (< 1 month) Abnormal pulmonary function Acute myocardial infarction Congestive heart failure (< 1 month) History of inflammatory bowel disease Medical patient at bed rest Age 61-74 Arthroscopic surgery Major open surgery (> 45 min) Laparoscopic surgery (> 45 min) Malignancy Confined to bed (> 72 hours) Immobilizing plaster cast Central venous access Age >= 75 History of VTE Family history of VTE Factor V Leiden Prothrombin [id number] Lupus anticoagulant Anticardiolipin antibodies Elevated serum homocysteine Heparin-induced thrombocytopenia Other congenital or acquired thrombophilia Stroke (< 1 month) Elective arthroplasty Hip, pelvis, or leg fracture Acute spinal cord injury (< 1 month) Prophylaxis Regimen Total Risk Factor Score Risk Level Prophylaxis Regimen 0-1 Low Early ambulation 2 Moderate Order ONE of the following: *Sequential Compression Device (SCD) *Heparin 5000 units SQ BID 3-4 Higher Order ONE of the following medications: *Heparin 5000 units SQ TID *Enoxaparin/Lovenox 40 mg SQ daily (WT < 150 kg, CrCl > 30 mL/min) *Enoxaparin/Lovenox 30 mg SQ daily (WT < 150 kg, CrCl > 10-29 mL/min) *Enoxaparin/Lovenox 30 mg SQ BID (WT < 150 kg, CrCl > 30 mL/min) AND/OR *Sequential Compression Device (SCD) 5 or more Highest Order ONE of the following medications: *Heparin 5000 units SQ TID (Preferred with Epidurals) *Enoxaparin/Lovenox 40 mg SQ daily (WT < 150 kg, CrCl > 30 mL/min) *Enoxaparin/Lovenox 30 mg SQ daily (WT < 150 kg, CrCl > 10-29 mL/min) *Enoxaparin/Lovenox 30 mg SQ BID (WT < 150 kg, CrCl > 30 mL/min) AND *Sequential Compression Device (SCD) (Horacio Mayorga MD, R1) Assessment and Plan Assessment and Plan This is a 66 year old male with past medical history of HTN, Alcohol abuse, Alcohol withdrawal seizures who presented to the ED after having a syncopal episode. On arrival to ED the patient was found to have an elevated blood pressure of 218/123 and a heart rate of 106. He also had a lactic acid of 7.8. His current blood pressure is 175/96, he is afebrile, and his respiration rate, and oxygen saturation are within normal limits. He is currently asymptomatic other than mild neck and shoulder pain. He was admitted to [facility] [place] further work up. Code Status Full Code Discussed Condition With Admission H&P Written by Liilana Solorio MS4 [employer] COM Seen and discussed with Dr. Mayorga Discussed with Dr. Oscar (Horacio Mayorga MD, R1) Attending Attestation . (Ze Orellana MD) Problem List: (1) Syncope ICD Codes: R55 - Syncope and collapse Plan: Syncope work up initiated Differential diagnosis includes ACS, seizure, metabolic disorder, vaso-vagal, cardiac arrhythmia, thyroid abnormality ACS work up, follow up serial Troponins and EKG, Echocardiogram -troponin x1 was negative -EKG showed sinus tachycardia with ST depression in septal leads, similar to previous EKGs -Patient on telemetry -CXR shows no acute disease TSH normal Follow up CBC, CMP and Carotid U/S Consider orthostatic bps once bp stabilizes Bed rest due to possible seizure, in ED lactic acid was found to be 7.8, after 2L bolus lactic acid came down to 1.0. -Head CT negative (2) Hypertensive urgency ICD Codes: I10 - Hypertensive urgency Status: Acute Plan: Patient currently on Nicardipine drip Patient was maintained on Labetaolol 200 mg BID and Clonidine 0.2 mg BOD, but has been off BP meds for the last several months due to lack of insurance/ follow up Switch to PO meds once BP stabilizes R/O ischemic causes (3) Alcohol abuse ICD Codes: F10.10 - Alcohol abuse Status: Acute Plan: Patient on Chlordiazepoxide HCl (CIWA protocol) and rally pack for alcohol withdrawal/seizure prophylaxis Drug and Alcohol screen were negative Neuro exams q4hrs (4) Nutrition, metabolism, and development symptoms ICD Codes: R63.8 - Other symptoms and signs concerning food and fluid intake Plan: Fluids: NS 110mL/hr Electrolytes: will continue to monitor and repeat as needed Nutrition: Heart Healthy Diet DVT ppx: Heparin, SCDs (5) GRETCHEN (acute kidney injury) ICD Codes: N17.9 - Acute kidney failure, unspecified Status: Acute Plan: Creatine elevated at 1.54, baseline is around 0.7-0.8 IVF @ 110 mL/hr Monitor I/Os Recheck in morning (Horacio Mayorga MD, R1) Horacio Mayorga MD, R1 Sep 01, 2017 14:28 Ze Orellana MD Sep 03, 2017 14:07
[2017-09-01] MEDS ORDERED: LACTULOSE SYRUP 20 GM/30 ML CUP PO PRN (15:00)
[2017-09-01] MEDS ORDERED: LORazepam 2 MG/ML VIAL IV PUSH PRN ×4 (15:00)
[2017-09-01] MEDS ORDERED: FLUMAZENIL 0.5 MG/5 ML VIAL IV PUSH PRN (15:00)
[2017-09-01] MEDS ORDERED: ACETAMINOPHEN 325 MG TAB PO PRN (15:00)
[2017-09-01] MEDS ORDERED: LORazepam 2 MG TAB PO PRN (15:00)
[2017-09-01] MEDS ORDERED: BISACODYL 10 MG SUPP RECTAL PRN (15:00)
[2017-09-01] MEDS ORDERED: ONDANSETRON HCL 4 MG/2 ML VIAL IVP PRN (15:00)
[2017-09-01] MEDS ORDERED: LORazepam 1 MG TAB PO PRN (15:00)
[2017-09-01] MEDS ORDERED: SENNOSIDES 8.6 MG TAB PO PRN (15:00)
[2017-09-01] MEDS ORDERED: NALOXONE HCL 0.4 MG/ML AMP IV PUSH PRN ×2 (15:00→15:45)
[2017-09-01] MEDS ORDERED: MAGNESIUM HYDROXIDE SUSP 30 ML CUP PO PRN (15:00)
[2017-09-01] MEDS: SODIUM CHLOR 0.9% 1000 ML INJ 1,000 ML IV SCH (16:54)
[2017-09-01] MEDS: FOLIC ACID 1 MG TAB PO SCH (16:54)
[2017-09-01] MEDS: THIAMINE HCL 100 MG TAB PO SCH (16:55)
[2017-09-01] MEDS: HEPARIN SODIUM - SQ 10,000 UNITS/ML VIAL SQ SCH (16:55)
[2017-09-01] MEDS: MULTIVITAMINS/MINERALS THERAPEUTIC TAB PO SCH (16:55)
--- NOTE | 2017-09-01 17:11 | RADRPT ---
EXAM DATE/TIME: 09/01/2017 16:24 [facility] COMPARISON: No previous studies available for comparison. INDICATIONS : Syncope. MEDICAL HISTORY : Hypercholesterolemia. Congestive heart failure. Hypertension. Seizures. Asthma. GI bleed. Gout. SURGICAL HISTORY : Vascecomy. ENCOUNTER: Initial ACUITY: 1 day PAIN SCORE: 0/10 LOCATION: Bilateral neck PEAK SYSTOLIC VELOCITIES (cm/sec): ICA/CCA RATIO: Right: 1.1 Left: 0.6 ICA: Right: 74 Left: 61 CCA: Right: 68 Left: 104 ECA: Right: 156 Left: 156 VERTEBRAL: Right: 63 antegrade Left: 61 antegrade Elevated flow velocities and ICA/CCA ratios have been found to correlate with increased degrees of vessel stenosis, calculated as percentage of diameter relative to a normal segment of distal ICA/CCA FINDINGS: RIGHT CAROTID: Mild eccentric calcific plaquing. No significant stenosis is visualized. The waveforms are within no rmal limits. LEFT CAROTID: Moderate eccentric calcific plaquing. No significant stenosis is visualized. The waveforms are withi n normal limits. VERTEBRAL ARTERIES: Antegrade flow is seen in both vertebral arteries. MISCELLANEOUS: None. CONCLUSION: No evidence of flow-limiting carotid stenosis. Cisco Severino MD on September 01, 2017 at 17:08 Board Certified Radiologist. This report was verified electronically.
[2017-09-01] MEDS: SODIUM CHLORIDE 0.9% FLUSH 10 ML FLUSH IV FLUSH SCH (21:00)
--- NOTE | 2017-09-01 22:08 | RADRPT ---
EXAM DATE/TIME: 09/01/2017 19:07 [facility] COMPARISON: MRI BRAIN W/O CONTRAST, December 08, 2016, 17:00. INDICATIONS : Altered mental status. Slurred Speech MEDICAL HISTORY : Hypertension. Hyperlipidema SURGICAL HISTORY : Vasectomy ENCOUNTER: Initial ACUITY: 1 day PAIN SCORE: 0/10 LOCATION: Brain TECHNIQUE: Multiplanar, multisequence MRI of the brain was performed without contrast. FINDINGS: CEREBRUM: The ventricles are normal for age. No evidence of midline shift, mass lesion, hemorrhage or acute in farction. No extraaxial fluid collections are seen. The pituitary gland and suprasellar cistern are normal in configuration. WHITE MATTER: Moderate periventricular and subcortical white matter small vessel ischemic changes are noted bilater ally. POSTERIOR FOSSA: The cerebellum is intact. Bilateral pontine ischemic changes are noted. The 4th ventricle is midline . The cerebellopontine angle is unremarkable. The cerebellar tonsils are normal in position. DIFFUSION IMAGING: No focal areas of restricted diffusion are seen. No evidence of acute infarction. EXTRACRANIAL: The visualized portions of the orbits and paranasal sinuses are unremarkable. CONCLUSION: 1. Moderate periventricular and subcortical white matter small vessel ischemic changes as well as kathy ateral pontine ischemic changes. 2. No acute infarct, acute hemorrhage, midline shift or extra-axial fluid collections. Adrián Fox MD on September 01, 2017 at 22:05 Board Certified Radiologist. This report was verified electronically.
[2017-09-02] VITALS (7 sets, daily range): BP systolic 104–182; BP diastolic 60–104; PULSE 60–80; RESP 17–18; TEMP 97.8–98.2; O2SAT 96–98
[2017-09-02] MEDS: SODIUM CHLOR 0.9% 1000 ML INJ 1,000 ML IV SCH (01:20)
[2017-09-02] MEDS ORDERED: cloNIDine HCL 0.2 MG TAB PO SCH (01:45)
[2017-09-02] MEDS: LABETALOL HCL 200 MG TAB PO SCH ×3 (01:50→22:19)
[2017-09-02] MEDS: HEPARIN SODIUM - SQ 10,000 UNITS/ML VIAL SQ SCH ×2 (03:13→16:00)
[2017-09-02] MEDS: cloNIDine HCL 0.2 MG TAB PO SCH ×3 (03:14→22:19)
[2017-09-02 07:07] LABS: AUTOMATED NEUTROPHIL # 3.1 TH/MM3 (1.8-7.7); BASOPHIL % 0.8 % (0.0-2.0); EOSINOPHIL # 0.1 TH/MM3 (0-0.4); EOSINOPHIL % 1.8 % (0.0-4.0); HEMATOCRIT 36.5 % (39.0-51.0); HEMOGLOBIN 12.9 GM/DL (13.0-17.0); LYMPH % 28.4 % (9.0-44.0); LYMPHOCYTE # 1.4 TH/MM3 (1.0-4.8); MEAN CELL VOLUME 98.8 FL (80.0-100.0); MEAN CORPUSCULAR HEMOGLOBIN 34.9 PG (27.0-34.0); MEAN CORPUSCULAR HGB CONC 35.4 % (32.0-36.0); MEAN PLATELET VOLUME 8.8 FL (7.0-11.0); MONO % 8.5 % (0.0-8.0); MONOCYTE # 0.4 TH/MM3 (0-0.9); NEUT % 60.5 % (16.0-70.0); PLATELET COUNT 188 TH/MM3 (150-450); WHITE BLOOD COUNT 5.1 TH/MM3 (4.0-11.0)
[2017-09-02 07:36] LABS: BICARBONATE 25.5 MEQ/L (21.0-32.0); CREATININE 1.02 MG/DL (0.60-1.30); TROPONIN I 0.17 NG/ML (0.02-0.05)
[2017-09-02] MEDS: MULTIVITAMINS/MINERALS THERAPEUTIC TAB PO SCH (08:55)
[2017-09-02] MEDS: FOLIC ACID 1 MG TAB PO SCH (08:55)
[2017-09-02] MEDS: ASPIRIN EC 81 MG TABEC PO SCH (08:55)
[2017-09-02] MEDS: THIAMINE HCL 100 MG TAB PO SCH (08:55)
[2017-09-02] MEDS: ATORVASTATIN 40 MG TAB PO SCH (08:56)
[2017-09-02] MEDS ORDERED: PNEUMOCOCCAL POLYVALENT INJ 25 MCG/0.5 ML SYR IM ONE (09:00)
[2017-09-02] MEDS: SODIUM CHLORIDE 0.9% FLUSH 10 ML FLUSH IV FLUSH SCH ×2 (09:00→22:19)
[2017-09-02] MEDS ORDERED: cloNIDine HCL 0.1 MG TAB PO PRN (11:00)
--- NOTE | 2017-09-02 11:12 | HHI.FPPN ---
Subjective Remarks Patient was seen and examined by team this morning. He reports he is doing well with no acute events overnight. He is not complaining of any chest pain, shortness of breath, dizziness or weakness. He does admit to some bruising and soreness on the left flank/back from his syncopal episode. He admits to having syncopal episodes in the past, the first time in his 20s while urinating. He also said his father suddenly from cardiac causes at 61 and his grandfather suddenly when his father was age 4. (Horacio Reyes MD, R1) Objective Vitals Vital Signs Date Time Temp Pulse Resp B/P (MAP) Pulse Ox O2 Delivery O2 Flow Rate FiO2 09/02/17 08:00 98.0 64 18 104/63 (77) 97 09/02/17 04:00 97.8 60 18 109/60 (76) 96 09/02/17 03:17 71 152/92 (112) 09/02/17 00:00 97.8 80 18 182/104 (130) 96 09/01/17 21:05 87 18 97 09/01/17 20:00 97.7 84 18 165/97 (119) 98 09/01/17 17:30 96 16 144/87 (106) 96 Room Air 09/01/17 17:00 98 16 134/82 (99) 96 Room Air 09/01/17 16:30 101 18 154/84 (107) 96 Room Air 09/01/17 16:00 106 16 153/88 (109) 96 Room Air 09/01/17 15:30 106 16 151/84 (106) 96 Room Air 09/01/17 15:00 116 16 159/86 (110) 96 Room Air 09/01/17 14:30 114 17 179/95 (123) 96 Room Air 09/01/17 14:00 116 17 176/97 (123) 96 Room Air 09/01/17 13:32 104 18 175/96 (122) 97 Room Air 09/01/17 13:14 208 119/102 09/01/17 13:12 102 16 208/119 (148) 99 Room Air 09/01/17 12:30 101 16 235/128 (163) 99 Room Air 09/01/17 12:00 104 16 226/128 (160) 98 Room Air 09/01/17 11:45 106 16 218/123 (154) 98 Room Air I/O 09/01/17 09/01/17 09/01/17 09/02/17 09/02/17 09/02/17 07:00 15:00 23:00 07:00 15:00 23:00 # Voids 2 (Horacio Reyes MD, R1) Result Diagram: 09/02/17 0650 09/02/17 0650 Imaging Last Impressions Head CT 09/01/17 1055 Signed Impressions: Service Date/Time: Friday, September 01, 2017 11:15 - CONCLUSION: Negative for acute process. Cb Ferrara MD FACR Chest X-Ray 09/01/17 1055 Signed Impressions: Service Date/Time: Friday, September 01, 2017 11:07 - CONCLUSION: No acute disease. Cb Ferrara MD FACR Carotid Artery Ultrasound 09/01/17 0000 Signed Impressions: Service Date/Time: Friday, September 01, 2017 16:24 - CONCLUSION: No evidence of flow-limiting carotid stenosis. Cisco Severino MD Brain MRI 09/01/17 0000 Signed Impressions: Service Date/Time: Friday, September 01, 2017 19:07 - CONCLUSION: 1. Moderate periventricular and subcortical white matter small vessel ischemic changes as well as bilateral pontine ischemic changes. 2. No acute infarct, acute hemorrhage, midline shift or extra-axial fluid collections. Adrián Fox MD Objective Remarks GENERAL: This is a well-nourished, well-developed older man, in NAD. SKIN: Bandage on left forearm. Bruising on left hand, left flank area and left upper back. No other rashes or abrasions. HEAD: Atraumatic. Normocephalic. EYES: Pupils equal round and reactive. Extraocular motions intact. No scleral icterus. No injection or drainage. ENT: Nose without bleeding or purulent drainage. Tongue or lips without lacerations. NECK: Trachea midline. No lymphadenopathy. CARDIOVASCULAR: Regular rate and rhythm. S1 and S2 no murmurs or extra beats. RESPIRATORY: Clear to auscultation. Breath sounds equal bilaterally. No wheezes , rales, or rhonchi. GASTROINTESTINAL: Abdomen soft, non-tender, nondistended. No hepato-splenomegaly , or palpable masses. MUSCULOSKELETAL: Extremities without clubbing, cyanosis, or edema. NEUROLOGICAL: Awake and alert. Responds to questions appropriately. Cranial nerves II through XII intact. Motor and sensory grossly within normal limits. Normal speech. (Horacio Reyes MD, R1) A/P Assessment and Plan This is a 66 year old male with past medical history of HTN, Alcohol abuse, Alcohol withdrawal seizures who presented to the ED after having a syncopal episode. On arrival to ED the patient was found to have an elevated blood pressure of 218/123 and a heart rate of 106. He also had a lactic acid of 7.8. Patient is doing well this morning, no acute events overnight. Attending Attestation Note written by Liliana lagunas MS4 [facility] Patient seen and discussed with Dr. Church and Dr. Orellana Reviewed by Horacio Reyes, PGY1 (Horacio Reyes MD, R1) Attending Attestation THIS CASE WAS DISCUSSED WITH THE RESIDENT PHYSICIANS DR CHURCH>DR ANGULO AND DR REYES.PATIENT WAS SEEN AND EXAMINED. I HAVE REVIEWED THE RECORD AND AGREE WITH THE ABOVE NOTE AND PLAN OF CARE WAS DISCUSSED. I HAVE AUTHORIZED THE ORDER FOR ADMISSION TO AN IN-PATIENT STATUS. (Ze Orellana MD) Problem List: (1) Syncope ICD Codes: R55 - Syncope and collapse Plan: Syncope work up initiated Differential diagnosis includes ACS, seizure, metabolic disorder, vaso-vagal, cardiac arrhythmia, thyroid abnormality ACS work up -Elevated troponin 0.25, 0.17, cardiology consulted -EKG showed sinus tachycardia with ST depression in septal leads, similar to previous EKGs -Patient on telemetry, last night had one episode of bradycardia. -CXR shows no acute disease, Echo normal TSH normal CBC and CMP within normal limits. Hgb 12.9 will repeat tomorrow Consider orthostatic bps once bp stabilizes Bed rest due to possible seizure, in ED lactic acid was found to be 7.8, after 2L bolus lactic acid came down to 1.0. -Head CT negative -MRI negative -will follow up on EEG results (2) Hypertensive urgency ICD Codes: I10 - Hypertensive urgency Status: Acute Plan: Patient stated on PO antihypertensives Labetolol 200 mg BID and Clonidine if SBP >180, DBP >110 Last BP 104/63 (3) Alcohol abuse ICD Codes: F10.10 - Alcohol abuse Status: Acute Plan: Patient on Chlordiazepoxide HCl (CIWA protocol) and rally pack for alcohol withdrawal/seizure prophylaxis Drug and Alcohol screen were negative Neuro exams q4hrs (4) GRETCHEN (acute kidney injury) ICD Codes: N17.9 - Acute kidney failure, unspecified Status: Acute Plan: Creatine decreased to 1.02 IVF @ 110 mL/hr Monitor I/Os (5) Nutrition, metabolism, and development symptoms ICD Codes: R63.8 - Other symptoms and signs concerning food and fluid intake Plan: Fluids: Hold NS 110mL/hr Electrolytes: will continue to monitor and repeat as needed Nutrition: Heart Healthy Diet DVT ppx: Heparin, SCDs (Horacio Reyes MD, R1) Horacio Reyes MD, R1 Sep 02, 2017 11:12 Ze Orellana MD Sep 03, 2017 14:13
--- NOTE | 2017-09-02 11:17 | EKG ---
Date Performed: 09/01/2017 Time Performed: 10:51:12 PTAGE: 66 years EKG: SINUS TACHYCARDIA SEPTAL MYOCARDIAL INFARCTION MODERATE T-WAVE ABNORMALITY, CONSIDER LATERA L ISCHEMIA ABNORMAL ECG Since the prior tracing, there has been no significant change PREVIOUS TRACING : 12/07/2016 16.49 DOCTOR: John Koch Interpretating Date/Time 09/02/2017 11:13:25
--- NOTE | 2017-09-02 12:06 | ECHRPT ---
Indication: syncope CONCLUSIONS Normal left ventricular size. EF@ 55% [id number] mitral valve regurgitation. No aortic valve regurgitation. No aortic valve stenosis. There is mild tricuspid valve regurgitation. The pulmonary valve is not well visualized. Normal left ventricular size. [id number] mitral valve regurgitation. No aortic valve regurgitation. No aortic valve stenosis. There is mild tricuspid valve regurgitation. The pulmonary valve is not well visualized. BP: / HR: Rhythm: MEASUREMENTS (Male / Female) Normal Values Technical Quality:Technically difficult study 2D ECHO LV Diastolic Diameter PLAX 4.6 cm 4.2 - 5.9 / 3.9 - 5.3 cm LV Systolic Diameter PLAX 3.4 cm IVS Diastolic Thickness 1.2 cm 0.6 - 1.0 / 0.6 - 0.9 cm LVPW Diastolic Thickness 1.1 cm 0.6 - 1.0 / 0.6 - 0.9 cm LV Relative Wall Thickness 0.5 RV Internal Dim ED PLAX 2.1 cm M-MODE Aortic Root Diameter MM 4.0 cm LA Systolic Diameter MM 3.2 cm LA Ao Ratio MM 0.8 AV Cusp Separation MM 1.9 cm DOPPLER Mitral E Point Velocity 56.8 cm/s Mitral A Point Velocity 83.9 cm/s Mitral E to A Ratio 0.7 LV E' Lateral Velocity 23.7 cm/s Mitral E to LV E' Lateral Ratio 2.4 LV E' Septal Velocity 36.5 cm/s Mitral E to LV E' Septal Ratio 1.6 FINDINGS LEFT VENTRICLE Normal left ventricular size. The left ventricular systolic function is normal with an estimated ejection fraction in the range of 60-65%. RIGHT VENTRICLE Normal right ventricular size and systolic function. LEFT ATRIUM The left atrial size is normal. RIGHT ATRIUM The right atrial size is normal. ATRIAL SEPTUM Normal atrial septal thickness without atrial level shunting by limited color doppler interrogation. AORTA The aortic root and proximal ascending aorta are normal in size on limited imaging. MITRAL VALVE Structurally normal mitral valve. [id number] mitral valve regurgitation. AORTIC VALVE Trileaflet aortic valve. No aortic valve regurgitation. No aortic valve stenosis. TRICUSPID VALVE Structurally normal tricuspid valve. There is mild tricuspid valve regurgitation. PULMONARY VALVE The pulmonary valve is not well visualized. VESSELS The inferior vena cava is normal in size. PERICARDIUM No pericardial effusion. Seferino Raphael MD, FACC, FSCAI (Electronically Signed) Final Date:02 September 2017 12:04
--- NOTE | 2017-09-02 15:04 | MG ---
cc: Marva De La O MD [age] years old. EEG #: [id number]. REFERRING: [place]. ROOM: 1524. With photic stimulation only. CT has moderate white matter changes, pontine ischemic changes. EEG is awake, drowsiness, sleep. Last EEG was in 12/2016, consists of some encephalopathy. Apparently, the patient was talking on the phone and woke up on the floor, felt dizzy. 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 On aspirin, Lipitor, Catapres, thiamine, folic acid. DESCRIPTION OF RECORD: Lot of eye movement but overall low amplitude EEG, predominantly of 4-5 Hz, 20 mV. At other times, there is a normal alpha when is more awake. EKG, difficult to tell truly if it is sinus. EEG goes between a normal alpha to theta slowing. Photic stimulation minimal driving response. IMPRESSION: Overall at times mild slowing, may be due to mild encephalopathy. No epileptic activity is observed. Clinical correlation. MD AMADOU Tiwari/ESTELA , 02:47 PM , 03:03 PM
--- NOTE | 2017-09-02 21:23 | MB ---
cc: Seferino Raphael MD, Arthur W MD DATE OF CONSULT: 09/02/2017 HISTORY OF PRESENT ILLNESS: Abby is a very pleasant 66-year-old gentleman with history of hypertension. He has been out of his blood pressure meds for the "past 8 months." He was talking to his fiance on the phone yesterday. She noticed his speech became slurred. She called EMS. The patient lost consciousness and was brought to the [facility] emergency room. He was found to have severely elevated blood pressure. Initially the first recorded blood pressure in the ER was 229/138, highest systolic blood pressure recorded was 245. Blood pressure was well managed overnight and is back to within normal limits. The patient is currently lucid, not vocal, in no acute distress. He denies any chest pain, fevers, chills, cough, GI or bleeding, PND, or orthopnea. PAST MEDICAL HISTORY: Per history of present illness. He has a history of hyperlipidemia, history of Martita-Majano tear times 2 with GI bleeding, gout, hypertension as detailed above, history of abdominal surgery. SOCIAL HISTORY: He drinks alcohol. He smokes a pack of cigarettes a day. ALLERGIES: PENICILLIN G. MEDICATIONS: Previously taking aspirin 81 mg daily, labetalol 200 mg b.i.d., clonidine 0.2 mg b.i.d., atorvastatin 40 mg daily, chlordiazepoxide HCl 10 mg by mouth t.i.d. In the hospital, aspirin 81 mg a day, atorvastatin 40 mg daily, clonidine 0.2 mg b.i.d., labetalol 200 mg b.i.d., folic acid 1 mg daily, heparin subcu 5000 units q 12 hours, thiamine 100 mg daily. PHYSICAL EXAMINATION: VITAL SIGNS: Current blood pressure ____/74, pulse 60, respiratory rate 17, temperature 98.2, sats 98% on room air. GENERAL: He is alert and oriented x3 in no acute distress. NECK: Supple. No JVD or bruit. CARDIOVASCULAR: S1, S2. No murmurs, rubs or gallops. LUNGS: Clear to auscultation bilaterally. ABDOMEN: Soft, nontender, nondistended with positive bowel sounds. EXTREMITIES: No lower extremity edema. IMAGING STUDIES : Carotid ultrasound: No evidence of flow-limiting carotid stenosis. Brain MRI: Moderate periventricular and subcortical white matter small vessel ischemic changes as well as bilateral punctuate ischemic changes. No acute infarct, acute hemorrhage, midline shirt or extraaxial fluid collections. Head CT: Negative for acute process. Chest x-ray: No acute disease. CARDIOLOGY STUDIES: EKG shows sinus tachycardia at 132 beats per minute with 1 to [address] segment depression in leads V3, V4, V5, V6, slightly upsloping also in lead 2, 3, aVF. The corrected QT interval is 473 milliseconds. LABORATORY DATA: White count 5.1, hemoglobin 12.9, hematocrit 36.5, platelet count 188. INR 1.0. Lactic acid 7.8, sodium 141, potassium ____, chloride 106, bicarb 25.5, BUN 10, creatinine 1.01. Troponin is 0.25 followed by 0.17. Ammonia level is 19. Toxicology is negative. INR 1.0. DIAGNOSES: 1. Malignant hypertension. 2. Ischemic cerebral MRI findings as detailed above. 3. Noncompliance. 4. Non-ST elevation myocardial infarction. 5. Anemia. 6. Hypokalemia. 7. Lactic acidosis. 8. Tobacco abuse. DISCUSSION At this point in time his troponin elevation is most likely secondary to severe demand from severely elevated blood pressure. He does have multiple cardiac risk factors for significant coronary artery disease and he does have what appears to be ischemic changes on his EKG when his blood pressure was severely elevated. Currently, he is asymptomatic with controlled blood pressure after restarting his home meds. Certainly, he needs to be compliant and I have advised him to be compliant and to discontinue alcohol and tobacco abuse. Otherwise, I recommend continued aspirin, atorvastatin, labetalol. MD SHIREEN Acosta//rh , 06:12 PM , 07:52 PM
[2017-09-03] VITALS: BP 127/88; PULSE 51; RESP 18; TEMP 97.8; O2SAT 97
[2017-09-03 04:00] VITALS: BP 147/83; PULSE 53; RESP 18; TEMP 97.7; O2SAT 98
[2017-09-03] MEDS: HEPARIN SODIUM - SQ 10,000 UNITS/ML VIAL SQ SCH (04:27)
[2017-09-03 08:00] VITALS: BP 149/86; PULSE 52; RESP 18; TEMP 98.3; O2SAT 98
[2017-09-03 08:02] VITALS: PULSE 49
[2017-09-03] MEDS: MULTIVITAMINS/MINERALS THERAPEUTIC TAB PO SCH (08:19)
[2017-09-03] MEDS: FOLIC ACID 1 MG TAB PO SCH (08:19)
[2017-09-03] MEDS: cloNIDine HCL 0.2 MG TAB PO SCH (08:19)
[2017-09-03 08:20] VITALS: PULSE 62
[2017-09-03] MEDS: ATORVASTATIN 40 MG TAB PO SCH (08:20)
[2017-09-03] MEDS: LABETALOL HCL 200 MG TAB PO SCH (08:20)
[2017-09-03] MEDS: THIAMINE HCL 100 MG TAB PO SCH (08:20)
[2017-09-03] MEDS: SODIUM CHLORIDE 0.9% FLUSH 10 ML FLUSH IV FLUSH SCH (08:20)
[2017-09-03] MEDS: ASPIRIN EC 81 MG TABEC PO SCH (08:20)
[2017-09-03 08:29] LABS: AUTOMATED NEUTROPHIL # 2.7 TH/MM3 (1.8-7.7); BASOPHIL % 0.7 % (0.0-2.0); EOSINOPHIL # 0.2 TH/MM3 (0-0.4); EOSINOPHIL % 3.6 % (0.0-4.0); HEMATOCRIT 35.3 % (39.0-51.0); HEMOGLOBIN 12.1 GM/DL (13.0-17.0); LYMPH % 26.5 % (9.0-44.0); LYMPHOCYTE # 1.2 TH/MM3 (1.0-4.8); MEAN CELL VOLUME 100.8 FL (80.0-100.0); MEAN CORPUSCULAR HEMOGLOBIN 34.5 PG (27.0-34.0); MEAN CORPUSCULAR HGB CONC 34.3 % (32.0-36.0); MEAN PLATELET VOLUME 9.7 FL (7.0-11.0); MONO % 9.6 % (0.0-8.0); MONOCYTE # 0.4 TH/MM3 (0-0.9); NEUT % 59.6 % (16.0-70.0); PLATELET COUNT 163 TH/MM3 (150-450); RED BLOOD COUNT 3.51 MIL/MM3 (4.50-5.90); RED CELL DISTRIBUTION WIDTH 13.9 % (11.6-17.2); WHITE BLOOD COUNT 4.6 TH/MM3 (4.0-11.0)
[2017-09-03 09:01] LABS: BICARBONATE 26.7 MEQ/L (21.0-32.0); CALCIUM 9.4 MG/DL (8.5-10.1); CREATININE 1.05 MG/DL (0.60-1.30)
--- NOTE | 2017-09-03 11:37 | HHI.FPPN ---
Subjective Remarks Patient seen and examined this morning. No acute events overnight. Patient states he feels well and is ready to go home. Denies any new neurological symptoms. No syncope. No chest pain, shortness of breath. No weakness or numbness.Denies any abdominal pain, leg pain. Objective Vitals Vital Signs Date Time Temp Pulse Resp B/P (MAP) Pulse Ox O2 Delivery O2 Flow Rate FiO2 09/03/17 08:20 62 09/03/17 08:02 49 09/03/17 08:00 98.3 52 18 149/86 (107) 98 09/03/17 04:00 97.7 53 18 147/83 (104) 98 09/03/17 00:00 97.8 51 18 127/88 (101) 97 09/02/17 20:10 62 09/02/17 16:41 98.2 60 17 136/74 (94) 98 09/02/17 12:00 98.2 63 18 114/73 (87) 98 I/O 09/02/17 09/02/17 09/02/17 09/03/17 09/03/17 09/03/17 07:00 15:00 23:00 07:00 15:00 23:00 # Voids 2 3 Result Diagram: 09/03/17 0715 09/03/17 0715 Imaging Last Impressions Head CT 09/01/17 1055 Signed Impressions: Service Date/Time: Friday, September 01, 2017 11:15 - CONCLUSION: Negative for acute process. Cb Ferrara MD FACR Chest X-Ray 09/01/17 1055 Signed Impressions: Service Date/Time: Friday, September 01, 2017 11:07 - CONCLUSION: No acute disease. Cb Ferrara MD FACR Carotid Artery Ultrasound 09/01/17 0000 Signed Impressions: Service Date/Time: Friday, September 01, 2017 16:24 - CONCLUSION: No evidence of flow-limiting carotid stenosis. Cisco Severino MD Brain MRI 09/01/17 0000 Signed Impressions: Service Date/Time: Friday, September 01, 2017 19:07 - CONCLUSION: 1. Moderate periventricular and subcortical white matter small vessel ischemic changes as well as bilateral pontine ischemic changes. 2. No acute infarct, acute hemorrhage, midline shift or extra-axial fluid collections. Adrián Fox MD Objective Remarks GENERAL: This is a well-nourished, well-developed older man, in NAD. SKIN: Bandage on left forearm. Bruising on left hand, left flank area and left upper back. No other rashes or abrasions. NECK: Trachea midline. No lymphadenopathy. CARDIOVASCULAR: Regular rate and rhythm. S1 and S2 no murmurs or extra beats. RESPIRATORY: Clear to auscultation. Breath sounds equal bilaterally. No wheezes , rales, or rhonchi. GASTROINTESTINAL: Abdomen soft, non-tender, nondistended. MUSCULOSKELETAL: Extremities without clubbing, cyanosis, or edema. NEUROLOGICAL: Awake and alert. Responds to questions appropriately. Cranial nerves II through XII intact. Motor and sensory grossly within normal limits. Normal speech. A/P Assessment and Plan This is a 66 year old male with past medical history of HTN, Alcohol abuse, Alcohol withdrawal seizures who presented to the ED after having a syncopal episode. On arrival to ED the patient was found to have an elevated blood pressure of 218/123 and a heart rate of 106. He also had a lactic acid of 7.8. Patient is doing well this morning, no acute events overnight. Discharge Planning Today Problem List: (1) Syncope ICD Codes: R55 - Syncope and collapse Plan: Syncope work up initiated Differential diagnosis includes ACS, seizure, metabolic disorder, vaso-vagal, cardiac arrhythmia, thyroid abnormality ACS work up -Elevated troponin 0.25, 0.17, cardiology consulted -Likely due to HTN; tight control -EKG showed sinus tachycardia with ST depression in septal leads, similar to previous EKGs -Patient on telemetry, last night had one episode of bradycardia. -CXR shows no acute disease, Echo normal TSH normal CBC and CMP within normal limits Bed rest due to possible seizure, in ED lactic acid was found to be 7.8, after 2L bolus lactic acid came down to 1.0. -Head CT negative -MRI negative -EEG: negative (2) Hypertensive urgency ICD Codes: I10 - Hypertensive urgency Status: Acute Plan: PO antihypertensives. Well controlled Labetolol 200 mg BID and Clonidine if SBP >180, DBP >110 (3) Alcohol abuse ICD Codes: F10.10 - Alcohol abuse Status: Acute Plan: Rally pack for alcohol withdrawal/seizure prophylaxis [facility] protocol Drug and Alcohol screen were negative Neuro exams q4hrs (4) GRETCHEN (acute kidney injury) ICD Codes: N17.9 - Acute kidney failure, unspecified Status: Acute Plan: Creatine decreased to 1.02. 1.05 today IVF @ 110 mL/hr Monitor I/Os (5) Nutrition, metabolism, and development symptoms ICD Codes: R63.8 - Other symptoms and signs concerning food and fluid intake Plan: Fluids: NS 110mL/hr Electrolytes: will continue to monitor and repeat as needed Nutrition: Heart Healthy Diet DVT ppx: Heparin, SCDs Stephane Oscar MD Sep 03, 2017 11:37
--- NOTE | 2017-09-03 11:38 | HHI.DCPOC ---
Discharge Care Plan Diagnosis: (1) GRETCHEN (acute kidney injury) (2) Hypertensive urgency (3) Altered mental status Goals to Promote Your Health * To prevent worsening of your condition and complications * To maintain your health at the optimal level Directions to Meet Your Goals Take your medications as prescribed Follow your dietary instruction Follow activity as directed Keep your appointments as scheduled Take your immunizations and boosters as scheduled If your symptoms worsen call your PCP, if no PCP go to Urgent Care Center or Emergency Room Smoking is Dangerous to Your Health. Avoid second hand smoke Call the 24-hour hour crisis hotline for domestic abuse at Stephane Oscar MD Sep 03, 2017 11:38
--- NOTE | 2017-09-03 11:41 | HHI.DS ---
Discharge Summary Admission Date Sep 01, 2017 at 15:57 Discharge Date: Sep 03, 2017 Admitting Diagnosis Syncope, possible seizure, hypertensive urgency. (1) Syncope Diagnosis: Principal Plan: Syncope work up initiated Differential diagnosis includes ACS, seizure, metabolic disorder, vaso-vagal, cardiac arrhythmia, thyroid abnormality ACS work up -Elevated troponin 0.25, 0.17, cardiology consulted -Likely due to HTN; tight control -EKG showed sinus tachycardia with ST depression in septal leads, similar to previous EKGs -Patient on telemetry, last night had one episode of bradycardia. -CXR shows no acute disease, Echo normal TSH normal CBC and CMP within normal limits Bed rest due to possible seizure, in ED lactic acid was found to be 7.8, after 2L bolus lactic acid came down to 1.0. -Head CT negative -MRI negative -EEG: negative ICD Codes: R55 - Syncope and collapse (2) Hypertensive urgency Diagnosis: Principal Plan: PO antihypertensives. Well controlled Labetolol 200 mg BID and Clonidine if SBP >180, DBP >110 ICD Codes: I10 - Hypertensive urgency Status: Acute (3) Alcohol abuse Diagnosis: Secondary Plan: Rally pack for alcohol withdrawal/seizure prophylaxis [facility] protocol Drug and Alcohol screen were negative Neuro exams q4hrs ICD Codes: F10.10 - Alcohol abuse Status: Acute (4) GRETCHEN (acute kidney injury) Diagnosis: Secondary Plan: Creatine decreased to 1.02. 1.05 today IVF @ 110 mL/hr Monitor I/Os ICD Codes: N17.9 - Acute kidney failure, unspecified Status: Acute (5) Nutrition, metabolism, and development symptoms Diagnosis: Secondary Plan: Fluids: NS 110mL/hr Electrolytes: will continue to monitor and repeat as needed Nutrition: Heart Healthy Diet DVT ppx: Heparin, SCDs ICD Codes: R63.8 - Other symptoms and signs concerning food and fluid intake [facility] Cardiology Brief History Patient is a 66 year old male who presents to the ED after "passing out" this morning. He was talking on the phone to his girlfriend and woke up on the floor. Before passing out he felt dizzy and nauseous. He was told by his girlfriend that prior to passing out he was slurring his speech. He thinks he was possibly unconscious for 15 minutes and denies hitting head. He denies any similar episodes in the past. He has been feeling fine otherwise. No recent chest pain, shortness of breath, fevers, chills, nausea, vomiting, peripheral edema, or abdominal pain. He is complaining of right neck/shoulder pain. He denies biting tongue, urinary or fecal incontinence. He was somewhat disoriented upon waking. He is currently alert and oriented. He reports having a flu-like illness a few months ago but has resolved. He was previously on clonidine, labetalol and atorvastatin but has been off his blood pressure medicine for the last few months. He has been only taking Tylenol and aspirin and no other medications. CBC/BMP: 09/03/17 0715 09/03/17 0715 Significant Findings Laboratory Tests Test 09/01/17 11:00 09/01/17 12:00 09/01/17 12:54 09/02/17 00:06 Red Blood Count 4.31 MIL/MM3 (4.50-5.90) Mean Corpuscular Volume 100.2 FL (80.0-100.0) Mean Corpuscular Hemoglobin 34.4 PG (27.0-34.0) Monocytes (%) (Auto) 8.5 % (0.0-8.0) Creatinine 1.54 MG/DL (0.60-1.30) Random Glucose 157 MG/DL (74-106) Total Protein 8.5 GM/DL (6.4-8.2) Sodium Level 133 MEQ/L (136-145) Potassium Level 3.3 MEQ/L (3.5-5.1) Carbon Dioxide Level 19.3 MEQ/L (21.0-32.0) Estimat Glomerular Filtration Rate 46 ML/MIN (>89) Lactic Acid Level 7.8 mmol/L (0.4-2.0) Troponin I LESS THAN 0.02 NG/ML 0.25 NG/ML (0.02-0.05) Urine Protein 30 mg/dL (NEG-TRACE) Urine Occult Blood TRACE (NEG) Test 09/02/17 06:50 09/03/17 07:15 Red Blood Count 3.70 MIL/MM3 (4.50-5.90) 3.51 MIL/MM3 (4.50-5.90) Hemoglobin 12.9 GM/DL (13.0-17.0) 12.1 GM/DL (13.0-17.0) Hematocrit 36.5 % (39.0-51.0) 35.3 % (39.0-51.0) Mean Corpuscular Hemoglobin 34.9 PG (27.0-34.0) 34.5 PG (27.0-34.0) Monocytes (%) (Auto) 8.5 % (0.0-8.0) 9.6 % (0.0-8.0) Potassium Level 3.3 MEQ/L (3.5-5.1) Estimat Glomerular Filtration Rate 74 ML/MIN (>89) 71 ML/MIN (>89) Troponin I 0.17 NG/ML (0.02-0.05) Mean Corpuscular Volume 100.8 FL (80.0-100.0) Imaging Last Impressions Head CT 09/01/17 1055 Signed Impressions: Service Date/Time: Friday, September 01, 2017 11:15 - CONCLUSION: Negative for acute process. Cb Ferrara MD FACR Chest X-Ray 09/01/17 1055 Signed Impressions: Service Date/Time: Friday, September 01, 2017 11:07 - CONCLUSION: No acute disease. Cb Ferrara MD FACR Carotid Artery Ultrasound 09/01/17 0000 Signed Impressions: Service Date/Time: Friday, September 01, 2017 16:24 - CONCLUSION: No evidence of flow-limiting carotid stenosis. Cisco Severino MD Brain MRI 09/01/17 0000 Signed Impressions: Service Date/Time: Friday, September 01, 2017 19:07 - CONCLUSION: 1. Moderate periventricular and subcortical white matter small vessel ischemic changes as well as bilateral pontine ischemic changes. 2. No acute infarct, acute hemorrhage, midline shift or extra-axial fluid collections. Adrián Fox MD PE at Discharge GENERAL: This is a well-nourished, well-developed older man, in NAD. SKIN: Bandage on left forearm. Bruising on left hand, left flank area and left upper back. No other rashes or abrasions. NECK: Trachea midline. No lymphadenopathy. CARDIOVASCULAR: Regular rate and rhythm. S1 and S2 no murmurs or extra beats. RESPIRATORY: Clear to auscultation. Breath sounds equal bilaterally. No wheezes , rales, or rhonchi. GASTROINTESTINAL: Abdomen soft, non-tender, nondistended. MUSCULOSKELETAL: Extremities without clubbing, cyanosis, or edema. NEUROLOGICAL: Awake and alert. Responds to questions appropriately. Cranial nerves II through XII intact. Motor and sensory grossly within normal limits. Normal speech. Hospital Course 66-year-old male with history of hypertension and alcohol withdrawal seizures presented after syncopal episode. No one witnessed the episode, and her friend found him lying down on the floor. He was admitted for syncopal workup, unsure of cause. ACS workup was done, which showed mild elevation of troponins. Echocardiogram was performed which was normal. Patient also found to be elevated blood pressure on admission as well. He was started on the nicardipine drip, and then switched to oral medications once stable. Cardiology was consulted for elevated troponins, who believed is likely due to his elevated blood pressure. Patient's blood pressure stabilized with oral medications. He was discharged in stable condition to follow up with PCP and cardiology. Pt Condition on Discharge: Stable Discharge Disposition: Discharge Home Discharge Instructions DIET: Follow Instructions for: As Tolerated, No Restrictions Activities you can perform: Regular-No Restrictions Follow up Referrals: Cardiology - 2 Weeks with Seferino Raphael MD Cardiology PCP Follow-up - 1 Week PCP Follow-up Continued Medications: Aspirin DR (Aspirin DR) 81 Mg Tabdr 81 MG PO DAILY, #30 TAB 0 Refills (This prescription has been renewed) Atorvastatin (Atorvastatin) 40 Mg Tab 40 MG PO DAILY for Cholesterol Management, #30 TAB 0 Refills (This prescription has been renewed) Calcium Carbonate (Antacid) (Tums) 500 Mg Chew 1000 MG CHEW Q6HR PRN for HEARTBURN, #60 TAB 0 Refills (This prescription has been renewed) Clonidine (Clonidine) 0.2 Mg Tab 0.2 MG PO BID for Blood Pressure Management, #60 TAB 0 Refills (This prescription has been renewed) Labetalol (Labetalol) 200 Mg Tab 200 MG PO BID for Blood Pressure Management, #60 TAB 0 Refills (This prescription has been renewed) Discontinued Medications: Chlordiazepoxide HCl (Chlordiazepoxide HCl) 10 Mg Capsule 10 MG PO TID for Alcohol Detox, #9 TAB Stephane Oscar MD Sep 03, 2017 11:41
[2017-09-03 12:00] VITALS: BP 156/86; PULSE 51; RESP 17; TEMP 97.5; O2SAT 99
[2017-09-03] MEDS ORDERED: ECASA81 PO (12:35)
[2017-09-03] MEDS ORDERED: LABE200T2 PO (12:35)
[2017-09-03] MEDS ORDERED: ATOR40TA16 PO (12:35)
[2017-09-03] MEDS ORDERED: TUMS500C CHEW (12:35)
[2017-09-03] MEDS ORDERED: CLON0.2T PO (12:35)
--- NOTE | 2017-09-03 13:58 | PD.CARD.PN ---
Subjective Subjective Remarks assymptomatic Objective Vital Signs / I&O Vital Signs Date Time Temp Pulse Resp B/P (MAP) Pulse Ox O2 Delivery O2 Flow Rate FiO2 09/03/17 12:00 97.5 51 17 156/86 (109) 99 09/03/17 08:20 62 09/03/17 08:02 49 09/03/17 08:00 98.3 52 18 149/86 (107) 98 09/03/17 04:00 97.7 53 18 147/83 (104) 98 09/03/17 00:00 97.8 51 18 127/88 (101) 97 09/02/17 20:10 62 09/02/17 16:41 98.2 60 17 136/74 (94) 98 I/O 09/02/17 09/02/17 09/02/17 09/03/17 09/03/17 09/03/17 06:59 14:59 22:59 06:59 14:59 22:59 # Voids 2 3 Physical Exam GENERAL: SKIN: Warm and dry. HEAD: Normocephalic. EYES: No scleral icterus. No injection or drainage. NECK: Supple, trachea midline. No JVD or lymphadenopathy. CARDIOVASCULAR: Regular rate and rhythm without murmurs, gallops, or rubs. RESPIRATORY: Breath sounds equal bilaterally. No accessory muscle use. GASTROINTESTINAL: Abdomen soft, non-tender, nondistended. MUSCULOSKELETAL: No cyanosis, or edema. BACK: Nontender without obvious deformity. No CVA tenderness. Laboratory Laboratory Tests Test 09/03/17 07:15 White Blood Count 4.6 TH/MM3 Red Blood Count 3.51 MIL/MM3 Hemoglobin 12.1 GM/DL Hematocrit 35.3 % Mean Corpuscular Volume 100.8 FL Mean Corpuscular Hemoglobin 34.5 PG Mean Corpuscular Hemoglobin Concent 34.3 % Red Cell Distribution Width 13.9 % Platelet Count 163 TH/MM3 Mean Platelet Volume 9.7 FL Neutrophils (%) (Auto) 59.6 % Lymphocytes (%) (Auto) 26.5 % Monocytes (%) (Auto) 9.6 % Eosinophils (%) (Auto) 3.6 % Basophils (%) (Auto) 0.7 % Neutrophils # (Auto) 2.7 TH/MM3 Lymphocytes # (Auto) 1.2 TH/MM3 Monocytes # (Auto) 0.4 TH/MM3 Eosinophils # (Auto) 0.2 TH/MM3 Basophils # (Auto) 0.0 TH/MM3 CBC Comment DIFF FINAL Differential Comment Blood Urea Nitrogen 11 MG/DL Creatinine 1.05 MG/DL Random Glucose 105 MG/DL Calcium Level 9.4 MG/DL Sodium Level 139 MEQ/L Potassium Level 3.7 MEQ/L Chloride Level 104 MEQ/L Carbon Dioxide Level 26.7 MEQ/L Anion Gap 8 MEQ/L Estimat Glomerular Filtration Rate 71 ML/MIN Assessment and Plan Problem List: (1) HTN (hypertension) ICD Codes: I10 - Essential (primary) hypertension (2) Elevated troponin ICD Codes: R74.8 - Abnormal levels of other serum enzymes Assessment and Plan 1.) HTN - assymptomatic, continue labetolol, clonidine; f/u with me 09/06/17 Seferino Raphale MD Sep 03, 2017 13:58
== END 2017-09-03 12:47 | disposition home or self-care (01) | DRG 683 ==
LOC: NEPC 10:45 → INTOOBSV 14:16 → NEDA 14:16 → OBSVTOIN 15:57 → NEDH 20:01 → N05B 21:22
PROVIDERS: ADMIT Family Medicine; ATTEND Family Medicine
DX: N17.9 Acute kidney failure, unspecified (principal); E87.2 Acidosis; I16.0 Hypertensive urgency; E78.5 Hyperlipidemia, unspecified; I10 Essential (primary) hypertension; D64.9 Anemia, unspecified; E87.6 Hypokalemia; R00.1 Bradycardia, unspecified; R74.8 Abnormal levels of other serum enzymes; M10.9 Gout, unspecified; F10.10 Alcohol abuse, uncomplicated; F17.210 Nicotine dependence, cigarettes, uncomplicated; Y90.0 Blood alcohol level of less than 20 mg/100 ml; Z23 Encounter for immunization; Z82.49 Family history of ischemic heart disease and other diseases of the circulatory system; Z88.0 Allergy status to penicillin; Z91.14 Patient's other noncompliance with medication regimen
CPT/HCPCS: 70450; 70551; 71045; 80048; 80053; 80307; 81001; 82140; 82550; 83605; 84443; 84484; 85025; 85610; 85730; 90732; 93005; 93306; 93880; 95819; 96361; 96365; 96375; J1644; J2060; J7030; J7050

== ENCOUNTER 2017-10-09 14:25 | Emergency (ER) | payer SELFPAY ==
[~2017-10-09] VITALS: Ht 177.8 cm; Wt 79.0 kg
[~2017-10-09 14:25] MED LIST changes: -CHLO10CA5 PO
[2017-10-09 14:30] VITALS: BP 131/71; PULSE 67; RESP 16; TEMP 97.7; O2SAT 97
[2017-10-09 16:24] VITALS: BP 155/98; PULSE 67; RESP 18; O2SAT 98
--- NOTE | 2017-10-09 16:36 | PD ---
HPI Chief Complaint: Dizziness Time Seen by Provider: 16:31 Travel History International Travel<30 days: No Contact w/Intl Traveler<30days: No Traveled to known affect area: No History of Present Illness HPI 66-year-old patient presents with complaints of left upper extremity weakness slurred speech and dizziness while at the grocery store approximately an hour ago. Reports symptoms have now resolved. Symptoms lasted approximately 20 minutes. History of hypertension and hyperlipidemia. He does take aspirin daily. Took his medications this morning. Denies diabetes. He is a smoker. He is a bit of a drinker. Had 3-4 rum drinks prior to going grocery shopping. PFSH Past Medical History Asthma: Yes ( A CHILD) Autoimmune Disease: No Heart Rhythm Problems: No Cardiovascular Problems: No High Cholesterol: Yes Chest Pain: No Congestive Heart Failure: Yes COPD: No Cerebrovascular Accident: No Diabetes: No Diminished Hearing: No Endocrine: No Gastrointestinal Disorders: Yes (hx of GI [id number] tear x2) Gout: Yes Genitourinary: No Headaches: No Hypertension: Yes Immune Disorder: No Musculoskeletal: No Neurologic: Yes Reproductive: No Respiratory: Yes Migraines: No Seizures: Yes Sleep Apnea: No Thyroid Disease: No Influenza Vaccination: No Past Surgical History Abdominal Surgery: Yes Cardiac Surgery: No Ear Surgery: No Endocrine Surgery: No Eye Surgery: No Genitourinary Surgery: No Gynecologic Surgery: Yes (vasectomy) Neurologic Surgery: No Oral Surgery: Yes Thoracic Surgery: No Other Surgery: Yes Social History Alcohol Use: Yes (DAILY DRINKING) Tobacco Use: Yes (1 PPD) Substance Use: No Allergies-Medications (Allergen,Severity, Reaction): Coded Allergies: penicillin G (Unverified Allergy, Mild, PASS OUT, 10/09/17) Reported Meds & Prescriptions Reported Meds & Active Scripts Active Aspirin DR (Aspirin) 81 Mg Tabdr 81 Mg PO DAILY Labetalol (Labetalol HCl) 200 Mg Tab 200 Mg PO BID Clonidine (Clonidine HCl) 0.2 Mg Tab 0.2 Mg PO BID Atorvastatin (Atorvastatin Calcium) 40 Mg Tab 40 Mg PO DAILY Review of Systems General / Constitutional: No: Fever Eyes: No: Visual changes HENT: No: Headaches Cardiovascular: No: Chest Pain or Discomfort Respiratory: No: Shortness of Breath Gastrointestinal: No: Abdominal Pain Genitourinary: No: Dysuria Musculoskeletal: No: Pain Skin: No Rash Neurologic: Positive: Dizziness, Coordination Problem, Slurred Speech, No: Weakness Psychiatric: No: Depression Endocrine: No: Polydipsia Hematologic/Lymphatic: No: Easy Bruising Physical Exam Narrative GENERAL: Alert and oriented SKIN: Focused skin assessment warm/dry. HEAD: Atraumatic. Normocephalic. EYES: Pupils equal and round. No scleral icterus. No injection or drainage. ENT: No nasal bleeding or discharge. Mucous membranes pink and moist. NECK: Trachea midline. No JVD. CARDIOVASCULAR: Regular rate and rhythm. No murmur appreciated. RESPIRATORY: No accessory muscle use. Clear to auscultation. Breath sounds equal bilaterally. GASTROINTESTINAL: Abdomen soft, non-tender, nondistended. Hepatic and splenic margins not palpable. MUSCULOSKELETAL: No obvious deformities. No clubbing. No cyanosis. No edema. NEUROLOGICAL: Awake and alert. No obvious cranial nerve deficits. Motor grossly within normal limits. Normal speech. PSYCHIATRIC: Appropriate mood and affect; insight and judgment normal. Data Data Last Documented VS Vital Signs Date Time Temp Pulse Resp B/P (MAP) Pulse Ox O2 Delivery O2 Flow Rate FiO2 10/09/17 18:12 74 18 170/89 (116) 99 Room Air 10/09/17 14:30 97.7 Orders Orders Electrocardiogram (10/09/17 16:31) Complete Blood Count With Diff (10/09/17 16:31) Comprehensive Metabolic Panel (10/09/17 16:31) Creatine Kinase (Cpk) (10/09/17 16:31) Troponin I (10/09/17 16:31) Ct Brain W/O Iv Contrast(Rout) (10/09/17 16:31) Chest, Single Ap (10/09/17 16:31) Ecg Monitoring (10/09/17 16:31) Iv Access Insert/Monitor (10/09/17 16:31) Oximetry (10/09/17 16:31) Sodium Chloride 0.9% Flush (Ns Flush) (10/09/17 16:45) Labs Laboratory Tests Test 10/09/17 16:45 White Blood Count 10.1 TH/MM3 Red Blood Count 4.26 MIL/MM3 Hemoglobin 13.9 GM/DL Hematocrit 41.8 % Mean Corpuscular Volume 98.1 FL Mean Corpuscular Hemoglobin 32.6 PG Mean Corpuscular Hemoglobin Concent 33.2 % Red Cell Distribution Width 13.2 % Platelet Count 267 TH/MM3 Mean Platelet Volume 8.4 FL Neutrophils (%) (Auto) 79.0 % Lymphocytes (%) (Auto) 13.6 % Monocytes (%) (Auto) 4.2 % Eosinophils (%) (Auto) 0.7 % Basophils (%) (Auto) 2.5 % Neutrophils # (Auto) 7.9 TH/MM3 Lymphocytes # (Auto) 1.4 TH/MM3 Monocytes # (Auto) 0.4 TH/MM3 Eosinophils # (Auto) 0.1 TH/MM3 Basophils # (Auto) 0.3 TH/MM3 CBC Comment DIFF FINAL Differential Comment Blood Urea Nitrogen 7 MG/DL Creatinine 1.40 MG/DL Random Glucose 104 MG/DL Total Protein 8.6 GM/DL Albumin 3.8 GM/DL Calcium Level 10.4 MG/DL Alkaline Phosphatase 98 U/L Aspartate Amino Transf (AST/SGOT) 22 U/L Alanine Aminotransferase (ALT/SGPT) 18 U/L Total Bilirubin 0.5 MG/DL Sodium Level 137 MEQ/L Potassium Level 3.9 MEQ/L Chloride Level 100 MEQ/L Carbon Dioxide Level 28.5 MEQ/L Anion Gap 9 MEQ/L Estimat Glomerular Filtration Rate 51 ML/MIN Total Creatine Kinase 107 U/L Troponin I LESS THAN 0.02 NG/ML MDM Medical Decision Making Medical Screen Exam Complete: Yes Emergency Medical Condition: Yes Differential Diagnosis Near syncope, vasovagal, TIA, CVA Narrative Course Assessment and plan discussed the patient at bedside. ABCD risk factor of 5 for moderate risk. EKG reveals sinus rhythm first degree AV block with rate of 67. Discussed risk factors for CVA. Offered/encouraged admission for observation and neurology consult. Patient declined. Requested refill of his antihypertensives and antihyperlipidemic medications. States he does not have a primary care provider. Last [address] 10/09/17 1631 Signed Impressions: Service Date/Time: Monday, October 09, 2017 16:45 - CONCLUSION: 1. Stable exam. 2. No evidence of acute infarct, hemorrhage, mass or edema. Santos Hovoer MD Diagnosis Primary Impression: TIA (transient ischemic attack) Qualified Codes: G45.9 - Transient cerebral ischemic attack, unspecified Patient Instructions: General Instructions Additional Instructions: Encouraged alcohol and tobacco cessation. Stop aspirin, start Aggrenox. Encouraged to get a PCP to discuss referral to neurology. Encouraged to return to the emergency room with any onset of new symptoms. Med/Other Pt SpecificInfo: Prescription(s) given Scripts Dipyridamole-Aspirin (Aggrenox) 200-25 Mg Cap 1 CAP PO BID for Prevent Blood Clot, #60 CAP 0 Refills Prov: Reno Galvan MD 10/09/17 Labetalol (Labetalol) 200 Mg Tab 200 MG PO BID for Blood Pressure Management, #60 TAB 0 Refills Prov: Reno Galvan MD 10/09/17 Clonidine (Clonidine) 0.2 Mg Tab 0.2 MG PO BID for Blood Pressure Management, #60 TAB 0 Refills Prov: Reno Galvan MD 10/09/17 Atorvastatin (Atorvastatin) 40 Mg Tab 40 MG PO DAILY for Cholesterol Management, #30 TAB 0 Refills Prov: Reno Galvan MD 10/09/17 Disposition: 07 AGAINST MEDICAL ADVICE Condition: Stable Reno Galvan MD Oct 09, 2017 16:36
[2017-10-09 16:38] VITALS: O2SAT 97
[2017-10-09] MEDS ORDERED: SODIUM CHLORIDE 0.9% FLUSH 10 ML FLUSH IVF PRN (16:45)
[2017-10-09 16:56] LABS: AUTOMATED NEUTROPHIL # 7.9 TH/MM3 (1.8-7.7); BASOPHIL # 0.3 TH/MM3 (0-0.2); BASOPHIL % 2.5 % (0.0-2.0); EOSINOPHIL # 0.1 TH/MM3 (0-0.4); EOSINOPHIL % 0.7 % (0.0-4.0); HEMATOCRIT 41.8 % (39.0-51.0); HEMOGLOBIN 13.9 GM/DL (13.0-17.0); LYMPH % 13.6 % (9.0-44.0); LYMPHOCYTE # 1.4 TH/MM3 (1.0-4.8); MEAN CELL VOLUME 98.1 FL (80.0-100.0); MEAN CORPUSCULAR HEMOGLOBIN 32.6 PG (27.0-34.0); MEAN CORPUSCULAR HGB CONC 33.2 % (32.0-36.0); MEAN PLATELET VOLUME 8.4 FL (7.0-11.0); MONO % 4.2 % (0.0-8.0); MONOCYTE # 0.4 TH/MM3 (0-0.9); PLATELET COUNT 267 TH/MM3 (150-450); RED BLOOD COUNT 4.26 MIL/MM3 (4.50-5.90); RED CELL DISTRIBUTION WIDTH 13.2 % (11.6-17.2); WHITE BLOOD COUNT 10.1 TH/MM3 (4.0-11.0)
[2017-10-09 17:02] LABS: CHLORIDE 100 MEQ/L (98-107); SODIUM (NA) 137 MEQ/L (136-145)
[2017-10-09 17:06] LABS: ALBUMIN 3.8 GM/DL (3.4-5.0); BICARBONATE 28.5 MEQ/L (21.0-32.0); BLOOD UREA NITROGEN 7 MG/DL (7-18); CALCIUM 10.4 MG/DL (8.5-10.1); GLUCOSE,RANDOM 104 MG/DL (74-106)
[2017-10-09 17:09] LABS: ALT (GPT) 18 U/L (12-78); AST (GOT) 22 U/L (15-37)
[2017-10-09 17:10] LABS: GLOMERULAR FILTRATION RATE 51 ML/MIN (>89)
[2017-10-09 17:11] LABS: TOTAL BILIRUBIN ADULT 0.5 MG/DL (0.2-1.0); TOTAL PROTEIN 8.6 GM/DL (6.4-8.2)
[2017-10-09 17:12] LABS: ALKALINE PHOSPHATASE 98 U/L (45-117)
[2017-10-09 17:14] LABS: TROPONIN I LESS THAN 0.02 NG/ML (0.02-0.05)
--- NOTE | 2017-10-09 17:54 | RADRPT ---
EXAM DATE/TIME: 10/09/2017 16:45 [facility] COMPARISON: CT BRAIN W/O CONTRAST, September 01, 2017, 11:15. INDICATIONS : Near syncopal episode, left sided weakness. RADIATION DOSE: 55.04 CTDIvol (mGy) MEDICAL HISTORY : Seizures. Hypertension. SURGICAL HISTORY : None. ENCOUNTER: Initial ACUITY: 1 day PAIN SCALE: 0/10 LOCATION: cranial TECHNIQUE: Multiple contiguous axial images were obtained of the head. Using automated exposure control and adj ustment of the mA and/or kV according to patient size, radiation dose was kept as low as reasonably a chievable to obtain optimal diagnostic quality images. DICOM format image data is available electro nically for review and comparison. FINDINGS: CEREBRUM: The ventricles are normal for age. No evidence of midline shift, mass lesion, hemorrhage or acute in farction. No extra-axial fluid collections are seen. POSTERIOR FOSSA: The cerebellum and brainstem are intact. The 4th ventricle is midline. The cerebellopontine angle i s unremarkable. EXTRACRANIAL: The visualized portion of the orbits is intact. SKULL: The calvaria is intact. No evidence of skull fracture. CONCLUSION: 1. Stable exam. 2. No evidence of acute infarct, hemorrhage, mass or edema. Santos Hoover MD on October 09, 2017 at 17:51 Board Certified Radiologist. This report was verified electronically.
--- NOTE | 2017-10-09 18:03 | RADRPT ---
EXAM DATE/TIME: 10/09/2017 17:13 [facility] COMPARISON: CHEST SINGLE AP, September 01, 2017, 11:07. INDICATIONS : Cardiovascular attack. MEDICAL HISTORY : Congestive heart failure. Hypertension. Hyperlipidema. Seizures. SURGICAL HISTORY : Vasectomy ENCOUNTER: Initial ACUITY: 1 day PAIN SCORE: 0/10 LOCATION: Bilateral chest FINDINGS: There are chronic interstitial changes throughout the pulmonary parenchyma. No suspicious mass lesion s are identified. The heart is normal in size. The mediastinal contours are within normal limits. The visualized bony structures of ventricle, healed left rib fractures but are otherwise grossly inta ct. CONCLUSION: 1. COPD changes. No acute abnormality. Stable compared to prior dated 09/01/17. Marlo Ferrara MD on October 09, 2017 at 18:00 Board Certified Radiologist. This report was verified electronically.
[2017-10-09 18:12] VITALS: BP 170/89; PULSE 74; RESP 18; O2SAT 99
[2017-10-09] MEDS ORDERED: CLON0.2T PO (18:26)
[2017-10-09] MEDS ORDERED: ATOR40TA16 PO (18:26)
[2017-10-09] MEDS ORDERED: AGGR20025 PO (18:26)
[2017-10-09] MEDS ORDERED: LABE200T2 PO (18:26)
--- NOTE | 2017-10-10 18:59 | EKG ---
Date Performed: 10/09/2017 Time Performed: 16:37:20 PTAGE: 66 years EKG: Sinus rhythm WITH FIRST DEGREE AV BLOCK Compared to previous tracing, the sinus tachycardia has resolved. ST-T ch anges have improved. R force in V2 has improved ABNORMAL ECG PREVIOUS TRACING : 09/01/2017 10.51 DOCTOR: Beltran Harrison Interpretating Date/Time 10/10/2017 18:58:13
== END 2017-10-09 18:44 | disposition home or self-care (01) ==
LOC: PHED 14:25
DX: G45.9 Transient cerebral ischemic attack, unspecified (principal); R94.31 Abnormal electrocardiogram [ECG] [EKG]; I50.9 Heart failure, unspecified; I11.0 Hypertensive heart disease with heart failure; E78.00 Pure hypercholesterolemia, unspecified; M10.9 Gout, unspecified; F17.210 Nicotine dependence, cigarettes, uncomplicated; Z79.82 Long term (current) use of aspirin; Z72.89 Other problems related to lifestyle
CPT/HCPCS: 70450; 71045; 80053; 82550; 84484; 85025; 93005

== ENCOUNTER 2017-11-20 13:53 | Emergency (ER) | payer SELFPAY ==
[~2017-11-20] VITALS: Ht 182.9 cm; Wt 82.0 kg
[~2017-11-20 13:53] MED LIST changes: +AGGR20025 PO; -TUMS500C CHEW
[2017-11-20 13:59] VITALS: BP 179/101; PULSE 99; RESP 14; TEMP 98; O2SAT 99
[2017-11-20] MEDS ORDERED: LISI2.5T3 PO (14:48)
--- NOTE | 2017-11-20 14:53 | PD ---
HPI Chief Complaint: Seizure Time Seen by Provider: 14:04 Travel History International Travel<30 days: No Contact w/Intl Traveler<30days: No Traveled to known affect area: No History of Present Illness HPI Patient 66-year-old male presents emergency department confused after an apparent seizure episode prior to arrival. EMS states that his significant other was on scene states that had a seizure lasting between 2 and 3 minutes and then halted itself. He was confused and combative on scene, transported in position of comfort and on arrival is no longer combative but is significantly confused. Review of his records that show that he has a history of alcohol withdrawal seizures been admitted twice for these, he is supposed to be taking Keppra. Later in his encounter he states she has never followed up with a neurologist before. History somewhat limited on arrival the patient's becoming more clear, he states that he is pretty sure he bumped his left wrist and indeed there is a small abrasion, denies any head injury neck injury back injury , endorses a minimal superficial right-sided chest tenderness. Symptoms moderate, resolved, context as above, associated signs and symptoms as above PFSH Past Medical History Asthma: Yes Autoimmune Disease: No Heart Rhythm Problems: No Cardiovascular Problems: No High Cholesterol: Yes Chest Pain: No Congestive Heart Failure: Yes COPD: No Cerebrovascular Accident: No Diabetes: No Diminished Hearing: No Endocrine: No Gastrointestinal Disorders: Yes Gout: Yes Genitourinary: No Headaches: No Hypertension: Yes Immune Disorder: No Musculoskeletal: No Neurologic: Yes Reproductive: No Respiratory: Yes Migraines: No Seizures: Yes Sleep Apnea: No Thyroid Disease: No Tetanus Vaccination: Unknown Influenza Vaccination: Yes Past Surgical History Abdominal Surgery: Yes Cardiac Surgery: No Ear Surgery: No Endocrine Surgery: No Eye Surgery: No Genitourinary Surgery: Yes (vasectomy) Gynecologic Surgery: Yes (vasectomy) Neurologic Surgery: No Oral Surgery: Yes Thoracic Surgery: No Other Surgery: Yes Social History Alcohol Use: Yes (DAILY DRINKING) Tobacco Use: Yes (1 PPD) Substance Use: No Allergies-Medications (Allergen,Severity, Reaction): Coded Allergies: penicillin G (Unverified Allergy, Mild, PASS OUT, 10/09/17) Reported Meds & Prescriptions Reported Meds & Active Scripts Active Keppra (Levetiracetam) 500 Mg Tab 500 Mg PO BID Labetalol (Labetalol HCl) 200 Mg Tab 200 Mg PO BID Clonidine (Clonidine HCl) 0.2 Mg Tab 0.2 Mg PO BID Atorvastatin (Atorvastatin Calcium) 40 Mg Tab 40 Mg PO DAILY Aspirin DR (Aspirin) 81 Mg Tabdr 81 Mg PO DAILY Reported Lisinopril Unknown Strength Tab Unknown Dose PO DAILY Review of Systems Except as stated in HPI: all other systems reviewed are Neg Physical Exam Narrative GENERAL: Well-developed well-nourished no obvious distress SKIN: Focused skin assessment warm/dry. Thinning skin on bilateral upper extremities, there is a small skin tear on the left wrists just under where his watch sits. Otherwise do not see any other skin abnormality or evidence of trauma. HEAD: Atraumatic. Normocephalic. No linn signs or raccoon's eyes EYES: Pupils equal and round. No scleral icterus. No injection or drainage. ENT: No nasal bleeding or discharge. Mucous membranes pink and moist. NECK: Trachea midline. No JVD. CARDIOVASCULAR: Regular rate and rhythm. No murmur appreciated. RESPIRATORY: No accessory muscle use. Clear to auscultation. Breath sounds equal bilaterally. GASTROINTESTINAL: Abdomen soft, non-tender, nondistended. Hepatic and splenic margins not palpable. MUSCULOSKELETAL: No obvious deformities. No clubbing. No cyanosis. No edema. NEUROLOGICAL: Initially confused with GCS of 14 had rapid return of his normal mental status GCS of 15, cranial nerves II through XII grossly intact and nonfocal, 5 out of 5 strength in all 4 extremities. No seizure activity seen while in the emergency department PSYCHIATRIC: Appropriate mood and affect; insight and judgment normal. Data Data Last Documented VS Vital Signs Date Time Temp Pulse Resp B/P (MAP) Pulse Ox O2 Delivery O2 Flow Rate FiO2 11/20/17 15:14 16 98 Room Air 11/20/17 13:59 98.0 99 179/101 (127) Orders Orders Electrocardiogram (11/20/17 14:49) Complete Blood Count With Diff (11/20/17 14:49) Comprehensive Metabolic Panel (11/20/17 14:49) Ct Brain W/O Iv Contrast(Rout) (11/20/17 14:49) Blood Glucose (11/20/17 14:49) Ecg Monitoring (11/20/17 14:49) Iv Access Insert/Monitor (11/20/17 14:49) Oximetry (11/20/17 14:49) Sodium Chloride 0.9% Flush (Ns Flush) (11/20/17 15:00) Alcohol (Ethanol) (11/20/17 14:49) Levetiracetam (Keppra) (11/20/17 16:45) Ed Discharge Order (11/20/17 16:43) Labs Laboratory Tests Test 11/20/17 14:55 White Blood Count 7.0 TH/MM3 Red Blood Count 4.13 MIL/MM3 Hemoglobin 14.2 GM/DL Hematocrit 41.4 % Mean Corpuscular Volume 100.1 FL Mean Corpuscular Hemoglobin 34.3 PG Mean Corpuscular Hemoglobin Concent 34.3 % Red Cell Distribution Width 14.5 % Platelet Count 275 TH/MM3 Mean Platelet Volume 9.4 FL Neutrophils (%) (Auto) 57.3 % Lymphocytes (%) (Auto) 33.6 % Monocytes (%) (Auto) 7.4 % Eosinophils (%) (Auto) 1.0 % Basophils (%) (Auto) 0.7 % Neutrophils # (Auto) 4.0 TH/MM3 Lymphocytes # (Auto) 2.4 TH/MM3 Monocytes # (Auto) 0.5 TH/MM3 Eosinophils # (Auto) 0.1 TH/MM3 Basophils # (Auto) 0.1 TH/MM3 CBC Comment DIFF FINAL Differential Comment Blood Urea Nitrogen 10 MG/DL Creatinine 1.57 MG/DL Random Glucose 183 MG/DL Total Protein 8.3 GM/DL Albumin 4.0 GM/DL Calcium Level 10.6 MG/DL Alkaline Phosphatase 77 U/L Aspartate Amino Transf (AST/SGOT) 23 U/L Alanine Aminotransferase (ALT/SGPT) 22 U/L Total Bilirubin 0.6 MG/DL Sodium Level 136 MEQ/L Potassium Level 4.1 MEQ/L Chloride Level 98 MEQ/L Carbon Dioxide Level 17.2 MEQ/L Anion Gap 21 MEQ/L Estimat Glomerular Filtration Rate 45 ML/MIN Ethyl Alcohol Level LESS THAN 3 MG/DL MDM Medical Decision Making Medical Screen Exam Complete: Yes Emergency Medical Condition: Yes Differential Diagnosis Recurrent seizure, alcohol withdrawal seizure, electrolyte abnormality, head injury, Narrative Course Patient room to the emergency department, initially postictal had return of normal mental status, Last [address] 11/20/17 1119 Signed Impressions: Service Date/Time: Monday, November 20, 2017 15:45 - CONCLUSION: 1. No acute intracranial abnormality. Marco Hyatt MD Basic lab work is reassuring. Will be restarted on his Keppra, discussed he is not able to drive for at least 2 years following a seizure and needs to follow- up with a neurologist to may lift this restriction earlier. He verbalized understanding and stated he would not drive. He is stable for discharge at this time to his significant other's care. There is no indication for any wound closure of the skin tear on the left wrist. Diagnosis Primary Impression: Seizure Referrals: Main Raman MD Additional Instructions: Per [place] law you are not to drive for 2 years, a neurologist or brain doctor can lift this restriction earlier but she need to follow-up. Previously you had been prescribed Keppra I have refilled this medication please take it as prescribed. Med/Other Pt SpecificInfo: Prescription(s) given Scripts Levetiracetam (Keppra) 500 Mg Tab 500 MG PO BID for Control Seizures, #60 TAB 0 Refills Prov: Adrián Muñoz MD 11/20/17 Disposition: 01 DISCHARGE HOME Condition: Stable Adrián Muñoz MD November 20, 2017 14:53
[2017-11-20] MEDS ORDERED: SODIUM CHLORIDE 0.9% FLUSH 10 ML FLUSH IV FLUSH PRN (15:00)
[2017-11-20 15:14] VITALS: RESP 16; O2SAT 98
[2017-11-20 15:23] LABS: BASOPHIL # 0.1 TH/MM3 (0-0.2); BASOPHIL % 0.7 % (0.0-2.0); EOSINOPHIL # 0.1 TH/MM3 (0-0.4); HEMATOCRIT 41.4 % (39.0-51.0); HEMOGLOBIN 14.2 GM/DL (13.0-17.0); LYMPH % 33.6 % (9.0-44.0); LYMPHOCYTE # 2.4 TH/MM3 (1.0-4.8); MEAN CELL VOLUME 100.1 FL (80.0-100.0); MEAN CORPUSCULAR HEMOGLOBIN 34.3 PG (27.0-34.0); MEAN CORPUSCULAR HGB CONC 34.3 % (32.0-36.0); MEAN PLATELET VOLUME 9.4 FL (7.0-11.0); MONO % 7.4 % (0.0-8.0); MONOCYTE # 0.5 TH/MM3 (0-0.9); NEUT % 57.3 % (16.0-70.0); PLATELET COUNT 275 TH/MM3 (150-450); RED BLOOD COUNT 4.13 MIL/MM3 (4.50-5.90); RED CELL DISTRIBUTION WIDTH 14.5 % (11.6-17.2)
[2017-11-20 15:38] LABS: ALT (GPT) 22 U/L (12-78); AST (GOT) 23 U/L (15-37); BICARBONATE 17.2 MEQ/L (21.0-32.0); BLOOD UREA NITROGEN 10 MG/DL (7-18); CALCIUM 10.6 MG/DL (8.5-10.1); CHLORIDE 98 MEQ/L (98-107); CREATININE 1.57 MG/DL (0.60-1.30); GLOMERULAR FILTRATION RATE 45 ML/MIN (>89); GLUCOSE,RANDOM 183 MG/DL (74-106); SODIUM (NA) 136 MEQ/L (136-145)
[2017-11-20 15:40] LABS: ALKALINE PHOSPHATASE 77 U/L (45-117); TOTAL BILIRUBIN ADULT 0.6 MG/DL (0.2-1.0); TOTAL PROTEIN 8.3 GM/DL (6.4-8.2)
--- NOTE | 2017-11-20 15:59 | RADRPT ---
EXAM DATE/TIME: 11/20/2017 15:45 [facility] COMPARISON: CT BRAIN W/O CONTRAST, October 09, 2017, 16:45. INDICATIONS : Seizure today. RADIATION DOSE: 37.12 CTDIvol (mGy) MEDICAL HISTORY : Seizures. Congestive heart failure. Hypertension. SURGICAL HISTORY : None. ENCOUNTER: Initial ACUITY: 1 day PAIN SCALE: 0/10 LOCATION: cranial TECHNIQUE: Multiple contiguous axial images were obtained of the head. Using automated exposure control and adj ustment of the mA and/or kV according to patient size, radiation dose was kept as low as reasonably a chievable to obtain optimal diagnostic quality images. DICOM format image data is available electro nically for review and comparison. FINDINGS: CEREBRUM: The ventricles are normal for age. No evidence of midline shift, mass lesion, hemorrhage or acute in farction. No extra-axial fluid collections are seen. POSTERIOR FOSSA: The cerebellum and brainstem are intact. The 4th ventricle is midline. The cerebellopontine angle i s unremarkable. EXTRACRANIAL: The visualized portion of the orbits is intact. SKULL: The calvaria is intact. No evidence of skull fracture. CONCLUSION: 1. No acute intracranial abnormality. Marco Hyatt MD on November 20, 2017 at 15:56 Board Certified Radiologist. This report was verified electronically.
[2017-11-20] MEDS ORDERED: LEVE500 PO (16:42)
[2017-11-20] MEDS ORDERED: levETIRAcetam 500 MG TAB PO ONE (16:45)
--- NOTE | 2017-11-21 21:32 | EKG ---
Date Performed: 11/20/2017 Time Performed: 14:03:19 PTAGE: 66 years EKG: Sinus rhythm SEPTAL MYOCARDIAL INFARCTION ABNORMAL ECG PREVIOUS TRACING : 10/09/2017 16.37 Since the previous tracing, no significant change noted DOCTOR: Marcial Holden Interpretating Date/Time 11/21/2017 21:32:30
== END 2017-11-20 17:14 | disposition home or self-care (01) ==
LOC: NEPC 13:53
DX: R56.9 Unspecified convulsions (principal); R41.0 Disorientation, unspecified; J45.909 Unspecified asthma, uncomplicated; R94.31 Abnormal electrocardiogram [ECG] [EKG]; I50.9 Heart failure, unspecified; I11.0 Hypertensive heart disease with heart failure; Z72.0 Tobacco use
CPT/HCPCS: 70450; 80053; 80307; 85025; 93005; 99284